=== PATIENT | male | born 1935 | race Caucasian/White ===

== ENCOUNTER 2017-05-18 04:56 | Inpatient (IN) | payer MEDICARE, OTHER ==
[~2017-05-18] VITALS: Ht 170.2 cm; Wt 82.4 kg
--- OUTSIDE RECORDS SUMMARY | ~2017-05-18 | XMS | Clinical Summary ---
Demographics + + + | Address | [address] | | | [place] [address] | + + + | Home Phone | | + + + | Preferred Language | Unknown | + + + | Marital Status | | + + + | Confucianist Affiliation | Unknown | + + + | Race | White | + + + | Ethnic Group | Not or | + + + Author + + + | Organization | Unknown | + + + | Address | Unknown | + + + | Phone | Unavailable | + + + Support + + + + + | Name | Relationship | Address | Phone | + + + + + | GENE NOE | ECON | [address] | | | | | [place] | | | | | [address] | | + + + + + Care Team Providers + +------+ + | Care Teacher Of Family And Consumer Science Name | Role | Phone | + +------+ + PP | Unavailable | + +------+ + Source Comments RODDY is fully live on both [facility] and [facility] InPatient.[facility] Allergies Not on File Current Medications Not on file Active Problems Not on file Social History + +-------+ +--------+------+ | Tobacco Use | Types | Packs/Day | Years | Date | | | | | Used | | + +-------+ +--------+------+ | Never Assessed | | | | | + +-------+ +--------+------+ + + + | Sex Assigned at | Date Recorded | | | | + + + | Not on file | | + + + Plan of Treatment + + + + + | Health Maintenance | Due Date | Last Done | Comments | + + + + + | INFLUENZA VACCINE | | | | | (FLU SHOT) | 7 | | | + + + + + Results Not on filefrom Last 3 Months"
--- OUTSIDE RECORDS SUMMARY | ~2017-05-18 | XMS | Clinical Summary ---
Demographics + + + | Address | [address] | | | [place] [address] | + + + | Home Phone [...] [place] | | | | | [phone] | | + + + + + Care Team Providers + +------+ + | Care Engraver Letter Name | Role | Phone | + +------+ + PP | Unavailable | + +------+ + Source Comments RODDY is fully live on both [facility] and [facility] InPatient.[facility] Allergies Not on File Current Medications Not [...]
--- OUTSIDE RECORDS SUMMARY | ~2017-05-18 | XMS | Clinical Summary ---
Demographics + + + | Address | [address] | | | [place] [address] | + + + | Home Phone | | + + + | Preferred Language | Unknown | + + + | Marital Status | | + + + | Yazidi Affiliation | Unknown | + + + [...] [place] | | | | | [phone] | | + + + + + Care Team Providers + +------+ + | Care Weed Controller Name | Role | Phone | + +------+ + PP | Unavailable | + +------+ + Source Comments RODDY is fully live on both [facility] and [facility] InPatient.[facility] Allergies Not on File [...]
--- OUTSIDE RECORDS SUMMARY | ~2017-05-18 | XMS | Clinical Summary ---
Demographics + + + | Address | [address] | | | [place] [address] | + + + | Home Phone | | + + + | Preferred Language | Unknown | + + + | Marital Status | | + + + | Muslim Affiliation | Unknown | + + + [...] [address] | | | | | [place] | | | | | [address] | | + + + + + Care Team Providers + +------+ + | Care Driver'S License Reviewing Officer Name | Role | Phone | + +------+ + PP | Unavailable | + +------+ + Source Comments RODDY is fully live on both [facility] and [facility] InPatient.[facility] Allergies Not on File Current Medications [...]
--- OUTSIDE RECORDS SUMMARY | ~2017-05-18 | XMS | Clinical Summary ---
Demographics + + + | Address | [address] | | | [place] [address] | + + + | Home Phone | | + + + | Preferred Language | Unknown | + + + | Marital Status | | + + + | Episcopalian Affiliation | Unknown | + + + [...] [place] | | | | | [phone] | | + + + + + Care Team Providers + +------+ + | Care Drawing Operator Name | Role | Phone | + +------+ + PP | Unavailable | + +------+ + Source Comments RODDY is fully live on both [facility] and [facility] InPatient.[facility] Allergies Not on File Current Medications Not [...]
[~2017-05-18 04:56] MED LIST: ALBUTEROL0.63 MG/3 IH; ALBUTEROL1.25 MG/3 INH; ALBUTEROL2.5 MG/3 M INH; ASPIRIN EC81 MG PO; BREO ELLIPTA 21 EACH IH; CALCIUM600 MG PO; COMBIVENT INH14.7 GM INH; DULERA 200 MCG/13 GM IH; FLOMAX0.4 MG PO; FLONASE2 SPRAY; FLOVENT DISKU100 MCG IH; FLOVENT DISKU100 MCG INH; FLUTICASONE PRO16 GM NAS; HYDROCODON-ACE1 EA11 PO; IBUPROFEN800 MG PO; LISINOPRIL10 MG PO; LISINOPRIL5 MG PO; LOSARTAN POTASS50 MG PO; METFORMIN HCL500 MG PO; MONTELUKAST SOD10 MG PO; NEURONTIN300 MG PO; NORCO 10-325 T1 EACH PO; NORCO 5-325 TA1 EACH PO; NORCO 7.5-3251 EACH PO; OXYCODONE HCL5 MG PO; PERCOCET 5-3251 EACH PO; PERCOCET 7.5-31 EACH PO; PREDNISONE20 MG PO; REQUIP2 MG PO; SIMVASTATIN20 MG PO; SINGULAIR10 MG PO; VENTOLIN HFA18 GM IH; XARELTO10 MG PO; ZYRTEC10 MG PO
[2017-05-18] MEDS ORDERED: MIRAPEX0.25 MG PO (05:07)
--- NOTE | 2017-05-18 08:41 | NUR ---
resting in bed with in the room, starting to have more abd pain. prn dilaudid given. also requesting something to help with throat discomfort. will ask DR Douglas when available.
--- NOTE | 2017-05-18 10:59 | NUR ---
I went into room to give patient his cepacol lozenges for sore throat and he was sleeping.
--- NOTE | 2017-05-18 12:33 | NUR ---
DR RODARTE IN TO SEE PATIENT.
--- NOTE | 2017-05-18 14:09 | HP ---
[facility] [address], [place] [address] Signed ADMISSION DATE: 05/18/2017 REASON FOR ADMISSION: Small bowel obstruction. HISTORY: This 81-year-old white man presents to the emergency room this morning and evaluated by Dr. Mora with complaints of diffuse cramping abdominal pain. His initial episode began approximately two nights ago, lasting about 3 hours, which resolved on its own. Notably, he had admission to the hospital in [place] at [facility] in March 2016, treated for small bowel obstruction, which resolved with conservative measures, not requiring operation. His pain returned last night after dinner and had progressed. It was much worse in the few hours preceding his evaluation in the emergency room. He has had bowel movement up to yesterday however. He had nausea and dry heaves, but no actual vomitus per se. A CT scan of the abdomen was performed, which showed dilated loops of bowel suggestive of small bowel obstruction and some loops that were decompressed and a possible transition point located in the anterior midline related to prior incision. Of note, in 1987, he underwent a hiatal hernia repair. He has had other hernia repairs as well he says. His other medical problems include hypertension and reactive airways as well as dyslipidemia. MEDICATIONS AT ADMISSION: Include losartan, gabapentin, fluticasone inhaler, pramipexole (Mirapex, metformin, albuterol inhaler, simvastatin, and montelukast sodium). ALLERGIES: He has allergies to sulfa medications and oxycodone. He also has "metal allergy" including itching and red bumps he says. PAST SURGICAL HISTORY: Does include hiatal hernia repair and other abdominal wall hernia repairs as well as fiberoptic endoscopic sinus surgery, prostatic laser surgery, tonsillectomy as well. SOCIAL HISTORY: He lives in [place], [place]. He is . His primary physician is Dr. Gallego. REVIEW OF SYSTEMS: He denies any chest pain or shortness of breath per se. He has had no wheezing. He Electronically Signed By: MATI RODARTE MD 05/18/17 1409 PATIENT NAME: AMY NOE HISTORY AND PHYSICAL DATE OF : 37 REPORT #: [id number] PHYSICIAN: MATI RODARTE MD PCP: JULIETTE GALLEGO MD REPORT IS CONFIDENTIAL AND NOT TO BE RELEASED WITHOUT AUTHORIZATION [facility] [address], [place] [address] Signed denies any hematemesis or blood per rectum. He has had no voiding since being on the mcneil and feels somewhat thirsty. PHYSICAL EXAMINATION: GENERAL: Pleasant white man who does not look systemically toxic. Nasogastric tube is draining a scant amount of greenish fluid. Trachea is midline. He has no hoarseness. CHEST: Clear. There is no wheeze or rhonchi. HEART: Regular without murmur. ABDOMEN: Somewhat distended, but not particularly tender. It is firm. It is not soft. There is no mass. EXTREMITIES: Show no clubbing, cyanosis, or edema. LABORATORY STUDIES: Show a white count of 13.6, hematocrit 48.5, and platelets 259,000. Chem profile is normal. Glucose is elevated to 12, calcium 10.3, and lipase 34. Urinalysis, specific gravity of 1.056. I have reviewed the CT scan and some of his other notes available from prior admissions to the hospital. ASSESSMENT: The patient appears to have clinical and radiographic evidence of small bowel obstruction. This is a recurrent obstruction. A similar such episode was noted a year ago and managed in [place] at [facility] by conservative means. There does appear to be a transition point and he may require operation and may be as simple as an adhesion that might be divided. He is not particularly tender though his white count was somewhat elevated. He is improved with a nasogastric tube. He does need additional fluids. We will be watching closely and monitoring his blood glucose as he does have hyperglycemia at the time of admission. He may benefit from operation sooner than later if he does not have probable resolution of his symptoms. We have discussed all this and he concurs. MD DANELLE Damian/KARMENL /[id number] Electronically Signed By: MATI RODARTE MD 05/18/17 1409 PATIENT NAME: AMY NOE HISTORY AND PHYSICAL DATE OF : 37 REPORT #: [id number] PHYSICIAN: MATI RODARTE MD PCP: JULIETTE GALLEGO MD REPORT IS CONFIDENTIAL AND NOT TO BE RELEASED WITHOUT AUTHORIZATION [facility] [address] [place] [id number] Signed cc: Dr. Julián Mora MD Copies: GUY MORA MD ~ Electronically Signed By: MATI RODARTE MD 05/18/17 1409 PATIENT NAME: AMY NOE HISTORY AND PHYSICAL DATE OF : 37 REPORT #: [id number] PHYSICIAN: MATI RODARTE MD PCP: JULIETTE GALLEGO MD REPORT IS CONFIDENTIAL AND NOT TO BE RELEASED WITHOUT AUTHORIZATION
--- NOTE | 2017-05-18 15:15 | NUR ---
Up to the bathroom with 1 person standby assist. Walked around the large loop around nurses stations x2 loops. back to bed, state no pain right now.
--- NOTE | 2017-05-18 18:34 | NUR ---
UP WALKING IN THE HALLWAY WITH FAMILY MEMBER. TOLERATING WELL. BACK TO CHAIR, USED URINAL. NG TUBE RECONNECTED TO LIWS. IV FLUIDS RECONNECTED.
--- NOTE | 2017-05-18 19:15 | NUR ---
SHIFT REPORT RECEIVED. PATIENT IN THE RECLINER. NG TUBE IS CONNECTED TO SUCTION. PATIENT REQUESTING PRN PAIN MEDS AND A LOZENGE. FELECIA RN PROVIDED THESE TO PATIENT AND ASSISTED HIM INTO BED.
--- NOTE | 2017-05-18 19:41 | NUR ---
THE PATIENT VERBILIZED CONCERN ABOUT NOT RECEIVING HIS REGULAR DOSE OF GABAPENTIN AND MIRAPEX. HE IS CONCERNED HE WILL NOT BE ABLE TO SLEEP WITHOUT THESE MEDICATIONS. SPOKE WITH . ORDERS TO PROVIDE PATIENT'S HOME DOSE OF THESE MEDICATIONS WERE RECIEVED AND ORDERS TO PAUSE THE SUCTION ON THE NG TUBE FOR 30MINS FOR PO MED ADMINISTRATION.
--- NOTE | 2017-05-18 20:15 | NUR ---
EVENING MEDS GIVEN PER ORDER. PATIENT REPORTS GOOD PAIN CONTROL. SUCTION PAUSED FOR PO COAT EXAMINER. PATIENT'S ABD IS MODERATELY DISTENDED, NONTENDER, BOWEL SOUNDS ACTIVE THROUGHOUT. PATIENT HAS NOT BEEN PASSING GAS. TRACE EDEMA NOTED IN PATIENT'S HANDS, CRACKLES HEARD IN BASES OF THE LUNGS UP TO THE MIDDLE LOBES. UPPER LOBES ARE CLEAR. PATIENT DENIES SOB, O2 SAT 100% ON RA. DR. RODARTE NOTIFIED. ORDERS FOR CHEST X-RAY RECEIVED. IMAGING CONTACTED. PATIENT IS RESTING IN BED. VS, WNL. NO NEEDS AT THIS TIME. DISCUSSED PLAN OF CARE, NO QUESTIONS AT THIS TIME.
--- NOTE | 2017-05-18 20:34 | NUR ---
ROUNDED CHARGE. PATIENT IS RESTING IN BED. PATIENT HAS NG IN PLACE ON LWIS. NO NEEDS NOTED. CALL LIGHT IN REACH.
--- NOTE | 2017-05-18 21:00 | NUR ---
IMAGING IN ROOM FOR CHEST X-RAY. RESULTS SENT TO BY SCUTCHER TENDER PER REQUEST BY .
--- NOTE | 2017-05-18 21:28 | NUR ---
EVENING MEDS GIVEN PER ORDER. PATIENT REPORTS GOOD PAIN CONTROL. 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 PATIENT'S ABD IS MODERATELY DISTENDED, NONTENDER, BOWEL SOUNDS ACTIVE THROUGHOUT. PATIENT HAS NOT BEEN PASSING GAS. TRACE EDEMA NOTED IN PATIENT'S HANDS, CRACKLES HEARD IN BASES OF THE LUNGS UP TO THE MIDDLE LOBES. UPPER LOBES ARE CLEAR. PATIENT DENIES SOB, O2 SAT 100% ON RA. DR. RODARTE NOTIFIED. ORDERS FOR CHEST X-RAY RECEIVED. IMAGING CONTACTED. PATIENT IS RESTING IN BED. VS, WNL. NO NEEDS AT THIS TIME. DISCUSSED PLAN OF CARE, NO QUESTIONS AT THIS TIME.
--- NOTE | 2017-05-18 21:30 | NUR ---
SPOKE WITH ABOUT CHEST X-RAY FINDINGS. HE REPORTS THESE NORMAL. REQUEST PATIENT BE GIVEN NEB TREATMENT. RT CALLED.
--- NOTE | 2017-05-18 21:30 | NUR ---
PATIENT REPORTS GOOD PAIN CONTROL AT THIS TIME. HE IS SITTING UP IN THE BED, WATCHING TV. NG HOOKED UP TO LIWS. IV FLUIDS ARE RUNNING AT 85MLS/HR PER ORDER. PATIENT REPORTS SORENESS IN HIS THROAT. RN REMINDS HIM OF THE LOZENGE AT HIS BEDSIDE. HE STATES "I KNOW, I'LL USE IT SOON.". FRESH ICE CHIPS PROVIDED.
--- NOTE | 2017-05-18 22:15 | NUR ---
RT PROVIDED NEB TREATMENT. CRACKLES ARE STILL PRESENT, LOUDER THAN PRIOR TO TREATMENT. ENCOURAGED PATIENT TO COUGH AND DEEP BREATHE. HE AGREES TO DO THIS WHILE AWAKE. HE REPORTS GOOD PAIN CONTROL AT THIS TIME. DISCUSSED MY CONVERSATION WITH WITH THE PATIENT AND DISCUSSED THE IMPORTANCE OF GOOD RESPIRTORY HYGIENE, PATIENT VERBILIZED UNDERSTANDING.
--- NOTE | 2017-05-18 23:00 | NUR ---
PATIENT IS RESTING IN BED. HOB ELEVATED. NG TO LIWS. OUTPUT MINIMAL. IN FLUIDS INFUSING PER ORDER, SITE WNL.
--- NOTE | 2017-05-19 02:00 | NUR ---
BLOOD GLUCOSE CHECK DONE, NO INSULIN REQUIRED. PATIENT REPORTS GOOD PAIN CONTROL. ENCOURAGED PATIENT UP TO THE BATHROOM. PATIENT IS AWAKE AND ALERT. NO ASSISTANCE REQUIRED TO STAND UP TO THE EDGE OF THE BED TO USE URNAL. OUTPUT IS QS. IV FLUIDS INFUSING PER ORDER, SITE WNL. FRESH ICE PROVIDED. PATIENT'S LUNGS CONTINUE TO HAVE CRACKLES IN THE BASES, ENCOURAGED COUGH AND DEEP BREATHE. ABD IS MODERATELY DISTENDED, FIRM, AND NONTENDER. NG TUBE CONNECTED TO LIWS, MINIMAL OUTPUT. PATIENT RESTING IN BED WATCHING TV NOW, REQUEST LIGHTS TO BE LEFT ON. CALL LIGHT IN REACH.
--- NOTE | 2017-05-19 05:55 | NUR ---
PATIENT SLEPT MOST OF THE NIGHT. PAIN WELL CONTROLLED, NO MORPHINE REQUIRED SINCE START OF SHIFT. ABD IS MODERATELY DISTENDED, FIRM, BOWEL SOUNDS ACTIVE. PATIENT IS AAOX4, CALLS APPROPRIATELY. STANDS TO SIDE OF BED TO USE URNAL. OUTPUT QS. IV FLUIDS INFUSING PER ORDER, SITE WNL. TRACE EDEMA NOTED IN HANDS AND ANKLES. CRACKLES IN BASES OF LUNGS. SCDS IN USE. NG TUBE TO LIWS.
--- NOTE | 2017-05-19 06:26 | NUR ---
VS COMPLETE. PATIENT UP TO USE BATHROOM AND THEN MOVED TO RECLINER. HE DENIES PAIN. NG TUBE FLUSHED TO ENSURE PATENCY. PATIENT CONTINUES TO HAVE CRACKLES IN THE BASES OF HIS LUNGS. DENIES SOB. TRACE EDEMA ON HIS HANDS AND ANKLES. FRESH ICE CHIPS PROVIDED. NO OTHER NEEDS AT THIS TIME.
--- NOTE | 2017-05-19 07:34 | NUR ---
BEDSIDE REPORT RECEIVED FROM JORGE. PATIENT AWAKE SITTING IN THE CHAIR. NG TUBE IN PLAE ON L/I/S. IV INFUSING WELL, NO SIGNS OF INFILTRATION. PATIENT HAS ICE CHIP FOR COMFORT. REPORTS MILD PAIN ON THE RUQ. ABD XRAY DONE THIS AM. PATIENT DENIES NAUSEA. CALL LIGHT IN REACH.
--- NOTE | 2017-05-19 08:10 | NUR ---
PATIENT RESTING IN THE CHAIR, REPORTS MILD RIGHT QUADRANT PAIN. STATED THAT HE DOES NEED MED AT THIS TIME. LUNGS CLEAR AND DIM IN THE BASES. TRACE EDEMA NOTED IN THE HANDS AND MIKE LOWER EXTREMITIES. NG TUBE IN PLACE. TUBE WAS CLAMP FOR PO MEDS. PATIENT REPORT DISCOMFORT IN THE THROAT DUE TO NG TUBE, LOZENGES PRN. IV SITE PATENT AND FLUID INFUSING WELL. ABD FIRM AND ACTIVE BOWEL TONES EXCEPT LEFT LOWER QUADRANT. PATIENT DENIES NAUSEA. PATIENT IS A&O. INDEPENDENT IN ROOM. EDUCATED PATIENT ABOUT CALL LIGHT WHEN NEED HELP. CALL LIGHT IN REACH.
--- NOTE | 2017-05-19 10:52 | NUR ---
DR RODARTE WAS IN ROOM TO EVALUATE PATIENT AND DISCUSSED PLAN OF CARE. ALL QUESTIONS ANSWERED.
--- NOTE | 2017-05-19 12:35 | NUR ---
DR RODARTE CALLED AND GAVE ORDER TO DC NG TUBE AND ADVANCED DIET TO CLEAR LIQUID. PATIENT WAS NOTIFIED AND NG TUBE WAS DC. CLEAR LIQUID TRAY ORDER. PATIENT DENIES NAUSEA. RESTING IN CHAIR AT THIS TIME. CALL LIGHT IN REACH.
--- NOTE | 2017-05-19 14:57 | NUR ---
PT IS RELAXING IN THE CHAIR. PT STATES HE HAS NO NEEDS AT THIS TIME. VS AND I&O'S TAKEN AND DOCUMENTED. INFORMED PT TO CALL IF HE NEEDS ANYTHING. CALL LIGHT IS IN REACH.
--- NOTE | 2017-05-19 15:02 | NUR ---
PATIENT SITTING IN THE CHAIR AT THIS TIME. DENIES ANY NAUSEA AFTER DRINKING COFFEE. NO APPARENT DISTRESS. WILL CONTINUE TO MONITOR.
--- NOTE | 2017-05-19 16:17 | NUR ---
PATIENT UP WALKING IN THE HALLWAY. DENIES PAIN AND NAUSEA AT THIS TIME. TOLERATED CLEAR LIQUID DIET WELL. REPORTS PASSING LOTS OF FLATUS. WILL CONTINUE TO MONITOR.
--- NOTE | 2017-05-19 17:31 | NUR ---
PATIENT TOLERATED CLEAR LIQUID VERY WELL. NO REPORT OF NAUSEA OR OTHER DISCOMFORT. PATIENT REPORTS PASSING LOTS OF FLATUS. WILL ADVANCE PATIENT DIET TO FULL LIQUID AL MD ORDER. WILL CONTINUE TO MONITOR. FULL LIQUID TRAY ORDER.
--- NOTE | 2017-05-19 17:34 | NUR ---
Medications reconciled with patient interview. Patient will use his own Breo Ellipta inhaler. Please assure that it is returned to him at discharge
--- NOTE | 2017-05-19 18:39 | NUR ---
PATIENT HAD DONE WELL TODAY. NG TUBE DC'd AT ABOUT 1230. PATIENT TOLERATED CLEAR LIQUID WELL AND WAS ADVANCED TO FULL LIQUID PER DR RODARTE ORDER. NO NAUSEA. PATIENT REPORTED PASSING LOTS OF FLATUS. ACTIVE BOWEL TONES. AMBULATED IN THE HALLWAY MULTIPLE TIME. NO BM. CBG CHECK, INSULIN IS CBG GREATER THAN 150 PER MD ORDER.
--- NOTE | 2017-05-19 19:00 | NUR ---
SHIFT REPORT RECEIVED. PATIENT IN RECLINER. DENIES NAUSEA OR PAIN. REPORTS THAT HE WILL BE GETTING UP TO GO FOR A WALK. DENIES ANY NEEDS AT THIS TIME.
--- NOTE | 2017-05-19 19:15 | NUR ---
ROUNDED CHARGE. PATIENT IS UP AMBULATING IN HALLWAY. PATIENT DENIES ANY NEEDS AT THIS TIME. CALL LIGHT IN REACH.
--- NOTE | 2017-05-19 19:34 | NUR ---
PATIENT UP AMBULATING IN HALLWAY INDEPENDENTLY. APPEARS STEADY ON HIS FEET. DENIES PAIN.
--- NOTE | 2017-05-19 20:05 | NUR ---
RT CAROLA AND MYSELF ARE CONCERNED ABOUT PATIENT'S LUNG SOUNDS. CRACKLES HEARD IN THE BASES. PATIENT DENIES SOB. HE HAS BEEN TOLERATING ORAL FLUIDS AND URINE OUTPUT IS QS. NO NAUSEA AND NO ABD PAIN. CALLED TO GIVE HIM AN UPDATE ON THE PATIENT'S CONDITION. NEW ORDERS RECEIVED TO SL PATIENT AND PROVIDE A NORMAL BREAKFAST LONG PATIENT CONTINUES TO DO WELL. VERIFIED USING READBACK METHOD.
--- NOTE | 2017-05-19 21:10 | NUR ---
EVENING MEDS GIVEN PER ORDER. PATIENT BLOOD GLUCOSE WNL, NO INSULIN GIVEN. PATIENT IS AAOX3. UP IN THE RECLINER WATCHING TV. DENIES PAIN AND NAUSEA. PATIENT IS SL NOW. IV SITE WNL. LUNG SOUNDS ARE CLEAR IN UPPER LOBES, WITH CRACKLES IN THE BASES. HE DENIES SOB. ABD IS MILDLY DISTENDED, SLIGHTLY FIRM, NONTENDER. HYPOACTIVE BOWEL SOUNDS IN THE LOWER QUADRANTS, ACTIVE IN UPPER. URINE OUTPUT IS QS. TOLERATING ADEQUATE PO FLUIDS. TRACE EDEMA NOTED IN HANDS. PATIENT STATES HE WILL BE GOING FOR ANOTHER WALK SOON LONG IT DOESN'T BOTHER ANYONE. RN ENCOURAGED HIM TO WALK AND REASSURED HIM THAT HE WOULD NOT BE BOTHERING ANYONE.
--- NOTE | 2017-05-20 00:30 | NUR ---
PATIENT IS RESTING IN BED. TV IS ON BUT HE APPEARS TO BE SLEEPING. LIGHTS ARE OFF. RR 18. CALL LIGHT IN REACH.
--- NOTE | 2017-05-20 01:30 | NUR ---
PATIENT APPEARS TO BE SLEEPING SOUNDLY. RR 18. URNAL EMPTIED. OUTPUT QS, LIGHT YELLOW IN COLOR.
--- NOTE | 2017-05-20 03:13 | NUR ---
PATIENT RESTING IN BED. HE DENIES ANY NEEDS. REPORTS GOOD PAIN CONTROL. URNAL EMPTIED.
--- NOTE | 2017-05-20 05:31 | NUR ---
PATIENT UP AMBULATING. HE REQUEST COFFEE AND SOME FRESH ICE WATER WHICH WAS PROVIDED TO HIM. HE DENIES PAIN OR NAUSEA. BREAKFAST ORDER TAKEN.
--- NOTE | 2017-05-20 05:32 | NUR ---
PATIENT RESTED WELL THROUGHOUT THE NIGHT. PAIN WELL CONTROLLED WITHOUT MEDS. PATIENT HAS BEEN TAKING IN ADEQUATE PO FLUIDS. ABD IS MILDLY DISTENDED, NONTENDER, AND ACTIVE BOWEL SOUNDS. TRACE EDEMA STILL NOTED IN HANDS AND SOME CRACKLES IN THE BASES OF HIS LUNGS. VS HAVE BEEN WNL. URINE OUTPUT QS. HE HAS BEEN AMBULATING FREQUENTLY IN THE HALLS INDEPENDENTLY. IV SL.
--- NOTE | 2017-05-20 07:36 | NUR ---
received report from shift boss rn. breakfast is ordered. reports no pain. no n/v. independent in room. sl in RAC. call light within reach. request to keep door shut. no other needs at this time.
--- NOTE | 2017-05-20 09:10 | NUR ---
MORNING ASSESSEMNT COMPLETED. PT UP IN CHAIR, LUNGS ARE CLEAR AND DIM THROUGHOUT. GENERAL EDEMA NOTED IN BILAT HANDS AND LE. PT BLOOD SUGAR WAS 126 THIS AM. NO INSULINE GIVEN. PT IS A/O X4. REPORTS NO N/V AT THIS TIME. NO BOWEL MOEVENT IN 3 DAYS. BOWEL TONES ARE ACTIVE IN ALL FOUR QUADRANTS. FINISHED 100% OF BREAKFAST. PT OOB TO WALK HALLS INDEPENDENTLY. TOLLERATED WELL. BACK TO ROOM. CALL LIGHT WITHIN REACH.
--- NOTE | 2017-05-20 11:45 | NUR ---
PT WATCHING TV IN ROOM. AT BEDSIDE. UP TO CHAIR FOR LUNCH. BLOOD SUGAR 99. NO COVERAGE NEEDED. REFRESHED ICE WATER. KEEPING DOOR SHUT PER PT REQUEST. REPORTS NO PAIN AT THIS TIME. STATES "I JUST WANNA GO TO THE BATHROOM" (MEANING BOWEL MOVEMENT). CALL LIGHT WITHIN REACH. NO OTHER NEEDS AT THIS TIME.
--- NOTE | 2017-05-21 08:36 | DS ---
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 His initial pain started 2 days prior to admission, lasting about 3 hours, then resolved on its own. It is notably he was admitted to the hospital in [place] at [facility] in March 2016, treated for small bowel obstruction by conservative measures, which resolved without operation. The patient has had prior open hiatal hernia repair in 1987 as well as other hernia repairs. He is admitted for further evaluation and care for small bowel obstruction after CT scan was performed showing dilated loops of bowel suggestive of small bowel obstruction. PERTINENT PHYSICAL EXAMINATION: GENERAL: Showed a pleasant white man, who did not look systemically toxic. HEENT: Nasogastric tube was draining scant amount of greenish fluid. Trachea is midline. He has no hoarseness. CHEST: Clear. HEART: Regular without murmur. ABDOMEN: Somewhat distended, but not tender, but it was firm. There is no mass. LABORATORY DATA: White count was elevated at 13.6, hematocrit 48.5, and platelets 259,000. Chem profile was normal. Glucose elevated to 120, calcium 10.3, and lipase 34. CT scan showed dilated loop of bowel with transition area beneath the midline incision. HOSPITAL COURSE: He is maintained with nasogastric tube decompression and did feel quite a bit better after fluid resuscitation. He began having flatus rather promptly, but no actual bowel movement. Review of his meals leading up to his obstruction did not suggest any episode of high-fiber food bingeing or anything of that sort. A followup abdominal x-ray showed no clear evidence of bowel obstruction at that point. Nasogastric tube was removed and he was begun on a clear liquid diet and advanced to a full and ultimately a solid regular diet. By the afternoon the day of admission, he is tolerating a regular diet, has fair amount of flatus, no abdominal distention, no pain and doing well. Electronically Signed By: MATI RODARTE MD 05/21/17 0836 PATIENT NAME: AMY NOE DISCHARGE SUMMARY DATE OF : 37 REPORT #: [id number] PHYSICIAN: MATI RODARTE MD PCP: JULIETTE GALLEGO MD REPORT IS CONFIDENTIAL AND NOT TO BE RELEASED WITHOUT AUTHORIZATION [facility] [address], [place] [address] Signed As the patient has had 2 episodes of bowel obstruction, both resolving spontaneously without surgical intervention. We both agree that if recurrent obstruction should occur in the near future, then operative intervention would be undertaken rather than any prolonged delay for waiting for spontaneous resolution. He will return to the ongoing care of his primary physician, Dr. Gallego otherwise. If he has any problems, I am happy to see him sooner. DISCHARGE MEDICATIONS: His discharge medications will be as he had at time of admission which includes: 1. Metformin 500 mg p.o. b.i.d. 2. Gabapentin 600 mg p.o. b.i.d. 3. Losartan 50 mg p.o. at bedtime. 4. Albuterol (Ventolin) inhaler 2 puffs q.4 hours as needed for shortness of breath. 5. Fluticasone propionate 2 sprays nasal daily for nasal congestion. 6. Simvastatin 20 mg p.o. daily. 7. Montelukast 10 mg p.o. at bedtime daily. 8. Mirapex 0.25 mg 2 tablets p.o. at bedtime for restless legs. DISCHARGE DIAGNOSES: 1. Recurrent small bowel obstruction (last episode March 2016) with spontaneous resolution. 2. History of hiatal hernia repair by open technique 1987. 3. Reactive airways disease. 4. Hypertension. MD DANELLE Damian/MODL /[id number] cc: MD Juliette Verdugo MD Electronically Signed By: MATI RODARTE MD 05/21/17 0836 PATIENT NAME: AMY NOE DISCHARGE SUMMARY DATE OF : 36 REPORT #: [id number] PHYSICIAN: MATI RODARTE MD PCP: JULIETTE GALLEGO MD REPORT IS CONFIDENTIAL AND NOT TO BE RELEASED WITHOUT AUTHORIZATION [address] [place] [address] Signed Copies: GUY MORA MD, RUSSELL BARR MD ~ Electronically Signed By: MATI RODARTE MD 05/21/17 0836 PATIENT NAME: AMY NOE DISCHARGE SUMMARY DATE OF : 37 REPORT #: [id number] PHYSICIAN: MATI RODARTE MD PCP: JULIETTE GALLEGO MD REPORT IS CONFIDENTIAL AND NOT TO BE RELEASED WITHOUT AUTHORIZATION
== END 2017-05-20 15:20 | disposition home or self-care (01) | DRG 390 ==
LOC: ED 04:56 → MS 04:58 → ED 04:58 → MS 04:58 → ED 07:23 → MS 12:40
PROVIDERS: ADMIT Surgery
PROC: 0D9670Z Drainage of Stomach with Drainage Device, Via Natural or Artificial Opening (ICD-10-PCS; principal; 2017-05-18)
DX: K56.699 Other intestinal obstruction unspecified as to partial versus complete obstruction (principal); E11.9 Type 2 diabetes mellitus without complications; J44.9 Chronic obstructive pulmonary disease, unspecified; I10 Essential (primary) hypertension; E78.5 Hyperlipidemia, unspecified; Z87.891 Personal history of nicotine dependence; Z79.84 Long term (current) use of oral hypoglycemic drugs; Z79.51 Long term (current) use of inhaled steroids; Z79.899 Other long term (current) drug therapy; Z88.5 Allergy status to narcotic agent; Z88.2 Allergy status to sulfonamides
CPT/HCPCS: 36415; 71045; 74018; 74177; 80053; 81001; 83690; 85025; 94640; J1170; J1644; J2270; J2405; J2550; J7120; Q9967

== ENCOUNTER 2017-11-20 02:56 | Inpatient (IN) | payer MEDICARE, OTHER ==
[~2017-11-20] VITALS: Ht 170.2 cm; Wt 76.2 kg
--- NOTE | ~2017-11-20 | HP ---
[facility] [address] [place], [place] [address] Draft ADMISSION DATE: 11/20/2017 REASON FOR ADMISSION: Recurrent small bowel obstruction. HISTORY OF PRESENT ILLNESS: This 82-year-old white man is known to me from the past. He was admitted in April of 2017, for small bowel obstruction, which was considered a recurrent bowel obstruction. He had previously been admitted to [facility] for small bowel obstruction and admitted by sc for small bowel obstruction, which was similarly managed conservatively with resolution spontaneously. This was on May 20, 2017. Given his recurrent obstructive episodes, we had decided that an additional episode of obstruction might well be managed operatively. Late last night, he began having bloating, abdominal pain, nausea and vomiting, and presented to the emergency room, was evaluated by Dr. Doe. Imaging studies including a chest x-ray and a CT scan of the abdomen showed quite obvious bowel obstruction. Interpretation by the radiologist in addition to my personal review of the films showed an area of segmental ileal wall thickening in the right lower abdomen at the point of obstruction with question of possible inflammatory bowel disease. There is no other abnormality particularly. PAST MEDICAL HISTORY: Remarkable for hiatal hernia repair in 1987 in [place], [place]. Additionally, he has undergone incisional hernia repair in December of 2012. He has had knee replacement in 2014 also. Since his admission, the nasogastric tube has been placed, which has drained a considerable amount of opaque greenish yellow fluid. This has improved his symptoms of upper abdominal pain quite markedly. Past medical history includes reactive airways disease, also has hypertension. CURRENT MEDICATIONS: Include albuterol nebulizer, aspirin, diclofenac, fluticasone spray, gabapentin (Neurontin), losartan, metformin, montelukast, pramipexole, and simvastatin. ALLERGIES: He has allergies to sulfa medication and oxycodone. PATIENT NAME: AMY NOE HISTORY AND PHYSICAL DATE OF : 37 REPORT #: [id number] PHYSICIAN: MATI RODARTE MD PCP: JULIETTE GALLEGOS MD REPORT IS CONFIDENTIAL AND NOT TO BE RELEASED WITHOUT AUTHORIZATION [facility] [address], [place] [address] Draft SOCIAL HISTORY: He is . His is not present right now. She is babysitting some grandchildren. REVIEW OF SYSTEMS: He denies any shortness of breath or chest pain. He is having no dysphagia. He has had no blood per rectum or hematemesis. PHYSICAL EXAMINATION: GENERAL: Only mildly obese white man is sitting up in the chair, resting comfortably. HEENT: Nasogastric tube was in place with opaque yellow green fluid from nasogastric tube. Trachea is midline. Mucous membranes are quite dry. CHEST: Clear. HEART: Regular. ABDOMEN: Mildly distended, but not focally tender. EXTREMITIES: Show no clubbing, cyanosis, or edema. LABORATORY STUDIES: At admission showed a white count of 10.6, hematocrit 44.6, platelets 220,000. Chem profile was normal. Glucose is 176. Lipase 25. Urinalysis was normal. ASSESSMENT: The patient is now with recurrent small-bowel obstruction. Imaging studies suggest the obstructions in the region of the terminal ileum. Certainly, he may have inflammatory bowel disease accounting for obstructive process, but it is uncommon at this advanced age of 82, though not impossible by any means. The possibility of a stricture related adhesion causing obstruction is considered as well. At the present, he needs fluid resuscitation and further consideration for operative management of his problem. MD DANELLE Damian/SHAWN /[id number] cc: Gerson Doe DO PATIENT NAME: AMY NOE HISTORY AND PHYSICAL DATE OF : 37 REPORT #: [id number] PHYSICIAN: MATI RODARTE MD PCP: JULIETTE GALLEGOS MD REPORT IS CONFIDENTIAL AND NOT TO BE RELEASED WITHOUT AUTHORIZATION [facility] [address] [place] [address] Draft Copies: GERSON DOE DO ~ PATIENT NAME: AMY NOE HISTORY AND PHYSICAL DATE OF : 37 REPORT #: [id number] PHYSICIAN: MATI RODARTE MD PCP: JULIETTE GALLEGOS MD REPORT IS CONFIDENTIAL AND NOT TO BE RELEASED WITHOUT AUTHORIZATION
--- NOTE | ~2017-11-20 | DS ---
[facility] [address], [place] [address] Draft ADMISSION DATE: 11/20/2017 DISCHARGE DATE: 11/22/2017 REASON FOR ADMISSION: This 82-year-old white man is known to me from the past having been admitted in april of 2017, for small bowel obstruction, which is considered a recurrent obstruction. He had previously been admitted to [facility] for same thing in both cases, managed conservatively with spontaneous resolution. The night prior to admission he began having bloating, abdominal pain, nausea and vomiting, presented to the emergency room where he was evaluated by Dr. Reina. IMAGING: Imaging studies include a chest x-ray and CT scan of the abdomen, which showed an obvious distal small bowel obstruction. It was considered to have wall thickening in the ileum, but the transition point well proximal to the terminal ileum. He has undergone abdominal surgery in the past including hiatal hernia repair in 1987 in [facility], as well as an incisional hernia repair in December of 2012. He is admitted for further evaluation and care. PERTINENT PHYSICAL EXAMINATION: GENERAL: Showed a mildly obese white man, sitting up in a chair with a nasogastric tube in place draining copious amounts of thick yellow green fluid. Trachea is midline. Membranes quite dry. CHEST: Clear. HEART: Regular. ABDOMEN: Mildly distended, but not focally tender. EXTREMITIES: No clubbing, cyanosis, or edema. LABORATORY DATA: White count was 10.6, lipase 25, hematocrit 44.6, platelets 220,000. Glucose 176. HOSPITAL COURSE: He was maintained with IV fluids nasogastric tube decompression and had prompt improvement. Given his improvement clinically and given his recurrent obstructive problem, a small-bowel follow-through was obtained through his nasogastric tube, which showed prompt emptying of contrast throughout the small bowel into the colon. There was no sign of stricture, neoplasm, or other issue. The nasogastric tube was removed and he was begun on a diet, which he tolerated well. By the time of discharge, he is ambulating well, tolerating a regular diet and having no sign of obstructive symptoms. PATIENT NAME: AMY NOE DISCHARGE SUMMARY DATE OF : 37 REPORT #: [id number] PHYSICIAN: MATI RODARTE MD PCP: JULIETTE GALLEGO MD REPORT IS CONFIDENTIAL AND NOT TO BE RELEASED WITHOUT AUTHORIZATION [facility] [address], [place] [address] Draft At this point, he will be discharged home without specific restriction. If he should have further problems, he will let me know. We will see him back in about 6 weeks. Consideration might be made for a small-bowel follow-through to assess if he is having possibly a recurrent intussusception type problem though admittedly the CT scan does not show such a finding. DISCHARGE MEDICATIONS: Will include his usual dose which is, 1. Metformin 500 mg p.o. b.i.d. 2. Gabapentin 300 mg two caps p.o. b.i.d. 3. Losartan 50 mg p.o. at bedtime. 4. Albuterol 2 puffs q.4 hours as needed for shortness of breath. 5. Fluticasone propionate two sprays daily as needed for congestion. 6. Simvastatin 20 mg p.o. at bedtime. 7. Montelukast 10 mg p.o. at bedtime. 8. Mirapex 0.25 mg tablets two tabs p.o. at bedtime. 9. Aspirin 81 mg p.o. daily. 10. Voltaren 100 mg gel topically as needed for pain. 11. Calcium phosphate and vitamin D3 Gummies, one each daily. 12. Zyrtec 10 mg p.o. daily. 13. DSS 100 mg p.o. daily. DISCHARGE DIAGNOSES: 1. Recurrent small bowel obstruction with spontaneous resolution with conservative measures. 2. History of restless legs syndrome. 3. Reactive airways. 4. Diabetes, noninsulin dependent. 5. Hypertension. MD DANELLE Damian/SHAWN /[id number] cc: Juliette Gallego MD PATIENT NAME: AMY NOE DISCHARGE SUMMARY DATE OF : 36 REPORT #: [id number] PHYSICIAN: MATI RODARTE MD PCP: JULIETTE GALLEGO MD REPORT IS CONFIDENTIAL AND NOT TO BE RELEASED WITHOUT AUTHORIZATION [facility] [address] [place], [place] [address] Reina. Copies: JULIETTE GALLEGO MD ~ PATIENT NAME: AMY NOE DISCHARGE SUMMARY DATE OF : 37 REPORT #: [id number] PHYSICIAN: MATI RODARTE MD PCP: JULIETTE GALLEGO MD REPORT IS CONFIDENTIAL AND NOT TO BE RELEASED WITHOUT AUTHORIZATION
--- OUTSIDE RECORDS SUMMARY | ~2017-11-20 | XMS | Encounter Summary ---
Demographics + + + | Address | [address] | | | [place] [address] | + + + | Home Phone | | + + + | Preferred Language | Unknown | + + + | Marital Status | | + + + | Voodoo Affiliation | Unknown | + + + | Race | Unknown | + + + | Ethnic Group | Unknown | + + + Author + + + | Author | [facility] | + + + | Organization | [facility] | + + + | Address | Unknown | + + + | Phone | Unavailable | + + + Support + + + + + | Name | Relationship | Address | Phone | + + + + + | Hannah Alvarez | ECON | [address] | | | | | [place] | | | | | [address] | | + + + + + Care Team Providers + +------+ + | Care Elocution Teacher Name | Role | Phone | + +------+ + | Eugenio Gallego MD | PCP | | + +------+ + Reason for Referral MRI/CAT Scan (Routine) +--------+--------+ + + + + | Status | Reason | Specialty | Diagnoses / | Referred By | Referred To | | | | | Procedures | Contact | Contact | +--------+--------+ + + + + | Closed | | Radiology | Diagnoses | [place], | [facility] [address] | | | | | Multiple | Karon | [address] | | | | | pulmonary | [address] | | | | | nodules | [address] | [place] | | | | | Procedures | [place] | [address] Phone: | | | | | CT chest | [place], | [phone] | | | | | without | [place] [address] | | | | | | contrast | Phone: | | | | | | | [phone] | | | | | | | Fax: | | | | | | | [phone] | | +--------+--------+ + + + + MRI/CAT Scan (Routine) +--------+--------+ + + + + | Status | Reason | Specialty | Diagnoses / | Referred By | Referred To | | | | | Procedures | Contact | Contact | +--------+--------+ + + + + | Closed | | Radiology | Diagnoses | [place], | [facility] [address] | | | | | Multiple | Karon | [address] | | | | | pulmonary | [address] | | | | | nodules | [address] | [place], [place] | | | | | Procedures | [address] | [address] Phone: | | | | | CT chest | [place], | | | | | without | [place] [address] | | | | | | contrast | Phone: | | | | | | | [phone] | | | | | | | Fax: | | | | | | | [phone] | | +--------+--------+ + + + + Reason for Visit MRI/CAT Scan (Routine) +--------+--------+ + + + + | Status | Reason | Specialty | Diagnoses / | Referred By | Referred To | | | | | Procedures | Contact | Contact | +--------+--------+ + + + + | Closed | | Radiology | Diagnoses | [place], | [facility] [address] | | | | | Multiple | Karon | [address] | | | | | pulmonary | [address] | | | | | nodules | [address] | [place], [place] | | | | | Procedures | [address] | [address] Phone: | | | | | CT chest | [place], | | | | | without | [place] [address] | | | | | | contrast | Phone: | | | | | | | [phone] | | | | | | | Fax: | | | | | | | [phone] | | +--------+--------+ + + + + Encounter Details +--------+ + + + + | Date | Type | Department | Care Team | Description | +--------+ + + + + | 10/12/ | Hospital | [facility] | [place], | Multiple pulmonary | | 2018 | [facility] | [place], | nodules | | | | [address] | [address] | | | | | [address] | [place] [address] | | | | | [place] [address] | [phone] | | | | | [phone] | | | +--------+ + + + + Social History + +-------+ +--------+ + | Tobacco Use | Types | Packs/Day | Years | Date | | | | | Used | | + +-------+ +--------+ + | Former Smoker | | 1.5 | 15 | Quit: 02/26/1969 | + +-------+ +--------+ + + +---+---+---+ | Smokeless Tobacco: | | | | | Never Used | | | | + +---+---+---+ + + +---------+ + | Alcohol Use | Drinks/We | oz/Week | Comments | | | ek | | | + + +---------+ + | No | | | | + + +---------+ + + + + | Sex Assigned at | Date Recorded | | | | + + + | Not on file | | + + + as of this encounter Medications at Time of Discharge + + + +---------+ + + | Medication | Sig. | Disp. | Refills | Start | End Date | | | | | | Date | | + + + +---------+ + + | albuterol | Take 2.5 mg by | | | 03/09/19 | | | (PROVENTIL) (2.5 | nebulization every 4 | | | 16 | | | MG/3ML) 0.083% | (four) hours as | | | | | | nebulizer solution | needed. 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 | | | | | | Cervical stenosis of | | | | | | | spine | | | | | | + + + +---------+ + + | Blood Glucose | 1 Device by Does not | | 0 | 06/09/19 | | | Monitoring Suppl | apply route daily. | | | 18 | | | (ONE TOUCH ULTRA | TO TEST BLOOD SUGAR | | | | | | MINI) w/Device KIT | | | | | | + + + +---------+ + + | cetirizine | Take 10 mg by mouth | | | | | | (ZYRTEC) 10 MG | daily. | | | | | | tablet | | | | | | + + + +---------+ + + | cycloSPORINE | Place 1 drop into | | | | | | (RESTASIS) 0.05 % | both eyes every 12 | | | | | | ophthalmic emulsion | (twelve) hours. | | | | | + + + +---------+ + + | cycloSPORINE | 1 drop. | | | | | | (RESTASIS) 0.05 % | | | | | | | ophthalmic emulsion | | | | | | + + + +---------+ + + | fluticasone | 2 sprays by Each | | | 08/26/19 | | | (FLONASE) 50 MCG/ACT | Nare route daily. | | | 15 | | | nasal | | | | | | + + + +---------+ + + | Fluticasone | Inhale 1 puff into | 1 each | 11 | 04/11/19 | | | Furoate-Vilanterol | the lungs daily. | | | 18 | | | (BREO ELLIPTA) | | | | | | | 200-25 MCG/INH | | | | | | | AEPBIndications: | | | | | | | Asthma with COPD | | | | | | | (chronic obstructive | | | | | | | pulmonary disease) | | | | | | | ([facility]) | | | | | | + + + +---------+ + + | gabapentin | Take 300 mg by mouth | | | | | | (NEURONTIN) 300 MG | 3 (three) times | | | | | | capsule | daily. | | | | | + + + +---------+ + + | ibuprofen (MOTRIN) | Take 800 mg by mouth | | | | | | 800 MG tablet | every 8 (eight) | | | | | | | hours as needed for | | | | | | | Pain. | | | | | + + + +---------+ + + | ipratropium | Take 0.5 mg by | | | | | | (ATROVENT) 0.02 % | nebulization 4 | | | | | | nebulizer solution | (four) times daily. | | | | | + + + +---------+ + + | losartan (COZAAR) | Take 50 mg by mouth | | | | | | 50 MG tablet | daily. | | | | | + + + +---------+ + + | metFORMIN | Take 500 mg by mouth | | | | | | (GLUCOPHAGE) 500 MG | 2 (two) times daily | | | | | | tablet | with meals. | | | | | + + + +---------+ + + | montelukast | Take 1 tablet by | 30 | 11 | 02/27/19 | | | (SINGULAIR) 10 MG | mouth nightly. | tablet | | 18 | | | tabletIndications: | | | | | | | Asthma with COPD | | | | | | | (chronic obstructive | | | | | | | pulmonary disease) | | | | | | | ([facility]) | | | | | | + + + +---------+ + + | ONE TOUCH ULTRA | use as directed | | 1 | 06/09/19 | | | TEST test strip | | | | 18 | | + + + +---------+ + + | pramipexole | take 1 tablet by | 90 | 5 | 08/04/19 | | | (MIRAPEX) 0.25 MG | mouth at noon and 2 | tablet | | 18 | | | tabletIndications: | tab at 8 pm. | | | | | | RLS (restless legs | | | | | | | syndrome) | | | | | | + + + +---------+ + + | predniSONE | Take 2 tabs daily | 11 | 0 | 07/25/19 | | | (DELTASONE) 20 MG | for 3 days, then 1 | tablet | | 18 | | | tabletIndications: | tab daily for 5 days | | | | | | Asthma with COPD | then STOP. | | | | | | (chronic obstructive | | | | | | | pulmonary disease) | | | | | | | ([facility]) | | | | | | + + + +---------+ + + | Respiratory | Please provide | | | 04/06/19 | | | Therapy Supplies | portable nebulizer. | | | 16 | | | (NEBULIZER | Use as directed with | | | | | | COMPRESSOR) KIT | nebulizer | | | | | | | medication. Dx: | | | | | | | J45.40, J44.9 NAKIA: | | | | | | | Lifetime. | | | | | + + + +---------+ + + | simvastatin | Take one tablet | | | 01/17/20 | | | (ZOCOR) 20 MG tablet | daily | | | 15 | | + + + +---------+ + + | VENTOLIN HFA 108 | Inhale 2 puffs into | | | 12/09/19 | | | (90 BASE) MCG/ACT | the lungs every 4 | | | 16 | | | inhaler | (four) hours as | | | | | | | needed. | | | | | + + + +---------+ + + as of this encounter Plan of Treatment +--------+---------+ + + + | Date | Type | Specialty | Care Team | Description | +--------+---------+ + + + | 12/17/ | Office | Neurology | Ramiro Medrano MD [address] | | | 2017 | Visit | | [place], | | | | | | [place] [address] | | | | | | [phone] | | | | | | | | +--------+---------+ + + + | 12/21/ | Office | Pulmonology | [place], | | | 2017 | Visit | | [place] | | | | | | MD [address] | | | | | | [place] [address] | | | | | | [phone] | | | | | | | | +--------+---------+ + + + as of this encounter Procedures + +--------+ + + + | Procedure Name | Priori | Date/Time | Associated Diagnosis | Comments | | | ty | | | | + +--------+ + + + | CT CHEST WO CONTRAST | Routin | 10/12/2017 | Multiple pulmonary | Results for this | | | e | 10:29 AM | nodules | procedure are in the | | | | PDT | | results section. | + +--------+ + + + in this encounter Results CT chest without contrast (10/12/2017 10:29 AM) + + + | Impressions | Performed At | + + + | 1. Stable small pulmonary nodules. No further follow-up of these | [facility] | | nodules is recommended unless otherwise clinically indicated. | [facility] | | 2. Patchy blebs scattered through the periphery of the lung | | | parenchyma, perhaps with minimal paraseptal emphysema. | | | 3. Extensive postsurgical changes in the epigastrium | | | 4. Calcified granuloma along the surface of the liver 5. Other | | | benign findings as described. | | + + + + + + | Narrative | Performed At | + + + | HISTORY: Pulmonary nodules. Past smoker. Follow-up. COMPARISON: | [facility] | | 10/02/16, 10/14/15. TECHNIQUE: 5-mm axial CT images were | RADIOLOGY | | acquired using automated exposure control through the chest. 1 mm | | | axial reformations. 8mm axial MIP reformations. 2 mm coronal and | | | sagittal reformations. Oral Contrast: None IV contrast: None. | | | FINDINGS: The pulmonary nodule noted on the previous study are stable | | | as follows: 1. 1 mm nodule sequence 4 image 84 in the subpleural | | | lateral right upper lobe. 2. 2 mm nodule sequence 4 image 96 in | | | the subpleural posterior medial left lower lobe. 3. 3 mm nodule | | | sequence 4 image 133 in the pleural-based posterolateral left lower | | | lobe. 4. 2 mm nodule sequence 4 image 136 in the subpleural | | | posterior right lower lobe. 5. 3 mm nodule sequence 4 image 154 in | | | the pleural-based posterolateral left lower lobe. Anterior lower | | | cervical fusion is minimally included. Mild thoracic vertebral | | | endplate spurring. Osseous structures otherwise unremarkable. Mild | | | aortic, aortic trifurcation, subtle coronary arterial calcification. | | | No hilar or mediastinal adenopathy. Scans through the upper | | | abdomen show numerous clips surrounding the stomach at the GE | | | junction. Calcified granuloma along the surface of posterior medial | | | right hepatic dome. | | + + + + + | Procedure Note | + + | Omid, Rad Results In - 10/12/2017 11:40 AM PDT HISTORY:Pulmonary nodules. Past smoker. | | Follow-up.COMPARISON:10/02/16, 10/14/15.TECHNIQUE:5-mm axial CT images were acquired | | using automated exposure control through the chest. 1 mm axial reformations. 8mm axial | | MIP reformations. 2 mm coronal and sagittal reformations.Oral Contrast: NoneIV contrast: | | None.FINDINGS:The pulmonary nodule noted on the previous study are stable as follows:1. | | 1 mm nodule sequence 4 image 84 in the subpleural lateral right upper lobe.2. 2 mm | | nodule sequence 4 image 96 in the subpleural posterior medial left lower lobe.3. 3 mm | | nodule sequence 4 image 133 in the pleural-based posterolateral left lower lobe.4. 2 mm | | nodule sequence 4 image 136 in the subpleural posterior right lower lobe.5. 3 mm | | nodule sequence 4 image 154 in the pleural-based posterolateral left lower lobe.Anterior | | lower cervical fusion is minimally included. Mild thoracic vertebral endplate spurring. | | Osseous structures otherwise unremarkable.Mild aortic, aortic trifurcation, subtle | | coronary arterial calcification. No hilar or mediastinal adenopathy.Scans through the | | upper abdomen show numerous clips surrounding the stomach at the GE junction. Calcified | | granuloma along the surface of posterior medial right hepatic dome.IMPRESSION:1. Stable | | small pulmonary nodules. No further follow-up of these nodules is recommended unless | | otherwise clinically indicated.2. Patchy blebs scattered through the periphery of the | | lung parenchyma, perhaps with minimal paraseptal emphysema.3. Extensive postsurgical | | changes in the epigastrium4. Calcified granuloma along the surface of the liver5. | | Other benign findings as described.Electronically signed by Inder Munguia MD on | | 10/12/2017 11:35 AM | |Mild aortic, aortic trifurcation, subtle coronary arterial calcification. No hilar or media stinal adenopathy. | | | |Scans through the upper abdomen show numerous clips surrounding the stomach at the GE junct ion. Calcified granuloma along the surface of posterior medial right hepatic dome. | | | |IMPRESSION: | |1. Stable small pulmonary nodules. No further follow-up of these nodules is recommended un less otherwise clinically indicated. | |2. Patchy blebs scattered through the periphery of the lung parenchyma, perhaps with minim al paraseptal emphysema. | |3. Extensive postsurgical changes in the epigastrium | |4. Calcified granuloma along the surface of the liver | |5. Other benign findings as described. | | | | | + + + + + + + | Performing | Address | City/State/Zipcode | Phone Number | | Organization | | | | + + + + + | [facility] | [address] | [place] [address] | | + + + + + in this encounter Visit Diagnoses + + | Diagnosis | + + | Multiple pulmonary nodules | + + | Other nonspecific abnormal finding of lung field | + +"
--- OUTSIDE RECORDS SUMMARY | ~2017-11-20 | XMS | Clinical Summary ---
Demographics + + + | Address | [address] | | | [place] [address] | + + + | Home Phone | | + + + | Preferred Language | Unknown | + + + | Marital Status | | + + + | Rastafarian Affiliation | Unknown | + + + | Race | Unknown | + + + | Ethnic Group | Unknown | + + + Author + + + | Author | [facility] | + + + | Organization | [facility] | + + + | Address | Unknown | + + + | Phone | Unavailable | + + + Support + + + + + | Name | Relationship | Address | Phone | + + + + + | Hannah Alvarez | ECON | [address] | | | | | [place] | | | | | [address] | | + + + + + Care Team Providers + +------+ + | Care Clay Puddler Name | Role | Phone | + +------+ + | Eugenio Gallego MD | PP | | + +------+ + Allergies + + + + + + | Active Allergy | Reactions | Severity | Noted | Comments | | | | | Date | | + + + + + + | Oxycodone | Nausea Only | Low | 09/27/19 | | | | | | 17 | | + + + + + + Current Medications + + + +---------+------+------+-------+ | Prescription | Sig. | Disp. | Refills | Star | End | Statu | | | | | | t | Date | s | | | | | | Date | | | + + + +---------+------+------+-------+ | albuterol | Take 2.5 mg by | | | 02/26 | | Activ | | (PROVENTIL) (2.5 | nebulization every 4 | | | 2/20 | | e | | MG/3ML) 0.083% | (four) hours as | | | 16 | | | | nebulizer solution | needed. | | | | | | + + + +---------+------+------+-------+ | fluticasone | 2 sprays by Each | | | / | | Activ | | (FLONASE) 50 MCG/ACT | Nare route daily. | | | 0/20 | | e | | nasal | | | | 15 | | | + + + +---------+------+------+-------+ | gabapentin | Take 300 mg by mouth | | | | | Activ | | (NEURONTIN) 300 MG | 3 (three) times | | | | | e | | capsule | daily. | | | | | | + + + +---------+------+------+-------+ | losartan (COZAAR) | Take 50 mg by mouth | | | | | Activ | | 50 MG tablet | daily. | | | | | e | + + + +---------+------+------+-------+ | metFORMIN | Take 500 mg by mouth | | | | | Activ | | (GLUCOPHAGE) 500 MG | 2 (two) times daily | | | | | e | | tablet | with meals. | | | | | | + + + +---------+------+------+-------+ | VENTOLIN HFA 108 | Inhale 2 puffs into | | | 10/1 | | Activ | | (90 BASE) MCG/ACT | the lungs every 4 | | | 3/20 | | e | | inhaler | (four) hours as | | | 16 | | | | | needed. | | | | | | + + + +---------+------+------+-------+ | ibuprofen (MOTRIN) | Take 800 mg by mouth | | | | | Activ | | 800 MG tablet | every 8 (eight) | | | | | e | | | hours as needed for | | | | | | | | Pain. | | | | | | + + + +---------+------+------+-------+ | cetirizine | Take 10 mg by mouth | | | | | Activ | | (ZYRTEC) 10 MG | daily. | | | | | e | | tablet | | | | | | | + + + +---------+------+------+-------+ | cycloSPORINE | Place 1 drop into | | | | | Activ | | (RESTASIS) 0.05 % | both eyes every 12 | | | | | e | | ophthalmic emulsion | (twelve) hours. | | | | | | + + + +---------+------+------+-------+ | simvastatin | Take one tablet | | | 11/2 | | Activ | | (ZOCOR) 20 MG tablet | daily | | | 1/20 | | e | | | | | | 15 | | | + + + +---------+------+------+-------+ | ipratropium | Take 0.5 mg by | | | | | Activ | | (ATROVENT) 0.02 % | nebulization 4 | | | | | e | | nebulizer solution | (four) times daily. | | | | | | + + + +---------+------+------+-------+ | baclofen | Take 0.5-1 tablets | 60 | 2 | 10/27 | | Activ | | (LIORESAL) 10 MG | by mouth 2 (two) | tablet | | 10/15 | | e | | tabletIndications: | times daily as | | | 17 | | | | Status post cervical | needed (muscle | | | | | | | spinal fusion, | spasms). | | | | | | | Cervical stenosis of | | | | | | | | spine | | | | | | | + + + +---------+------+------+-------+ | montelukast | Take 1 tablet by | 30 | 11 | 01/0 | | Activ | | (SINGULAIR) 10 MG | mouth nightly. | tablet | | 2/20 | | e | | tabletIndications: | | | | 18 | | | | Asthma with COPD | | | | | | | | (chronic obstructive | | | | | | | | pulmonary disease) | | | | | | | | ([facility]) | | | | | | | + + + +---------+------+------+-------+ | Fluticasone | Inhale 1 puff into | 1 each | 11 | 03/29 | | Activ | | Furoate-Vilanterol | the lungs daily. | | | 06/15 | | e | | (BREO ELLIPTA) | | | | 18 | | | | 200-25 MCG/INH | | | | | | | | AEPBIndications: | | | | | | | | Asthma with COPD | | | | | | | | (chronic obstructive | | | | | | | | pulmonary disease) | | | | | | | | ([facility]) | | | | | | | + + + +---------+------+------+-------+ | Respiratory | Please provide | | | 02/0 | | Activ | | Therapy Supplies | portable nebulizer. | | | 11/15 | | e | | (NEBULIZER | Use as directed with | | | 16 | | | | COMPRESSOR) KIT | nebulizer | | | | | | | | medication. Dx: | | | | | | | | J45.40, J44.9 NAKIA: | | | | | | | | Lifetime. | | | | | | + + + +---------+------+------+-------+ | cycloSPORINE | 1 drop. | | | | | Activ | | (RESTASIS) 0.05 % | | | | | | e | | ophthalmic emulsion | | | | | | | + + + +---------+------+------+-------+ | Blood Glucose | 1 Device by Does not | | 0 | 04/1 | | Activ | | Monitoring Suppl | apply route daily. | | | 3/20 | | e | | (ONE TOUCH ULTRA | TO TEST BLOOD SUGAR | | | 18 | | | | MINI) w/Device KIT | | | | | | | + + + +---------+------+------+-------+ | ONE TOUCH ULTRA | use as directed | | 1 | 04/1 | | Activ | | TEST test strip | | | | 3/20 | | e | | | | | | 18 | | | + + + +---------+------+------+-------+ | azithromycin | TAKE TWO TABLETS BY | 6 | 0 | 05/2 | | Activ | | (ZITHROMAX) 250 MG | MOUTH NOW then ONE | tablet | | 11/15 | | e | | tabletIndications: | TABLET DAILY DAY 2-5 | | | 18 | | | | Asthma with COPD | | | | | | | | (chronic obstructive | | | | | | | | pulmonary disease) | | | | | | | | ([facility]) | | | | | | | + + + +---------+------+------+-------+ | predniSONE | Take 2 tabs daily | 11 | 0 | 05/2 | | Activ | | (DELTASONE) 20 MG | for 3 days, then 1 | tablet | | 11/15 | | e | | tabletIndications: | tab daily for 5 days | | | 18 | | | | Asthma with COPD | then STOP. | | | | | | | (chronic obstructive | | | | | | | | pulmonary disease) | | | | | | | | ([facility]) | | | | | | | + + + +---------+------+------+-------+ | pramipexole | take 1 tablet by | 90 | 5 | 06/0 | | Activ | | (MIRAPEX) 0.25 MG | mouth at noon and 2 | tablet | | 10/15 | | e | | tabletIndications: | tab at 8 pm. | | | 18 | | | | RLS (restless legs | | | | | | | | syndrome) | | | | | | | + + + +---------+------+------+-------+ Active Problems + + + | Problem | Noted Date | + + + | Coronary atherosclerosis | 07/24/2017 | + + + + + | Overview: Overview: | | possible prior heart attack? | + + + + + | Diabetic neuropathy ([facility]) | 07/24/2017 | + + + | DM type 2 (diabetes mellitus, type 2) ([facility]) | 07/24/2017 | + + + | Hyperlipidemia | 07/24/2017 | + + + | Hypertension | 07/24/2017 | + + + | Nasal polyposis | 07/24/2017 | + + + | Personal history of tobacco use, presenting hazards to health | 07/24/2017 | + + + | RLS (restless legs syndrome) | 01/09/2017 | + + + | Herniation of cervical intervertebral disc with radiculopathy | 08/28/2016 | + + + | Multiple pulmonary nodules | 08/14/2016 | + + + | Cervical stenosis of spine | 07/25/2016 | + + + | DDD (degenerative disc disease), cervical | 07/25/2016 | + + + | Status post cervical spinal fusion | 07/25/2016 | + + + | Asthma with COPD (chronic obstructive pulmonary disease) ([facility]) | 03/14/2016 | + + + | Acute bronchitis | 03/14/2016 | + + + | Chronic allergic rhinitis | 03/14/2016 | + + + | Chronic maxillary sinusitis | 03/14/2016 | + + + | Dysphagia | 05/06/2014 | + + + + + | Overview: Overview: | | Mild without laryngeal penetration on swallow study 02/2014 | + + + + + | Carpal tunnel syndrome on both sides | 02/13/2012 | + + + Resolved Problems + + + + | Problem | Noted | Resolved | | | Date | Date | + + + + | Cervical radiculopathy | 07/26/19 | | | | 17 | 7 | + + + + Encounters +--------+ + + + + | Date | Type | Specialty | Care Team | Description | +--------+ + + + + | 10/15/ | Telephone | | Gwen Walker RN | | | 2017 | | | | | +--------+ + + + + | 10/12/ | Hospital | | [place], | Multiple pulmonary | | 2017 | Encounter | | Karon Pearson, | nodules | | | | | MD | | +--------+ + + + + from Last 3 Months Immunizations + + + + | Name | Dates Previously Given | Next Due | + + + + | INFLUENZA, PF | 04/06/2015 | | | TRIVALENT HIGH DOSE | | | | 65 YRS [place] > | | | + + + + | Influenza, PF | 12/12/2013, 12/16/2012, 12/11/2011 | | | Recombinant, | | | | Trivalent (Flublok) | | | + + + + | Influenza, PF | 12/16/2012, 12/11/2011 | | | Trivalent | | | + + + + | Pneumococcal | 09/26/2010 | | | Polysaccharide | | | | 23-valent | | | + + + + Social History + [...] | | | + +---+---+---+ + + | Tobacco Cessation: Counseling Given: No | + + + + +---------+ + | Alcohol Use | Drinks/We | oz/Week | Comments | | | ek | | | + + +---------+ + | No | | | | + + +---------+ + + + + | Sex Assigned at | Date Recorded | | | | + + + | Not on file | | + + + Last Filed Vital Signs + + + + | Vital Sign | Reading | Time Taken | + + + + | Blood Pressure | 108/54 | 08/03/2017 1:17 PM PDT | + + + + | Pulse | 60 | 08/03/2017 1:17 PM PDT | + + + + | Temperature | 36.7 C (98 F) | 07/24/2017 8:56 AM PDT | + + + + | Respiratory Rate | 16 | 01/15/2017 10:14 AM PST | + + + + | Oxygen Saturation | 99% | 08/03/2017 1:17 PM PDT | + + + + | Inhaled Oxygen | - | - | | Concentration | | | + + + + | Weight | 78.2 kg (172 lb 6.4 | 08/03/2017 1:17 PM PDT | | | oz) | | + + + + | Height | 170.2 cm (5' 7") | 08/03/2017 1:17 PM PDT | + + + + | Body Mass Index | 27 | 08/03/2017 1:17 PM PDT | + + + + Plan of Treatment +--------+---------+ + + + | Date | Type | Specialty | Care Team | Description | +--------+---------+ + + + | 12/17/ | Office | | Ramiro Medrano MD [address] | | | 2017 | Visit | | [place] | | | | | | [place] [address] | | | | | | [phone] | | | | | | | | +--------+---------+ + + + | 12/21/ | Office | | [place], | | | 2017 | Visit | | Karon Pearson | | | | | | MD [address] | | | | | | [place] [address] | | | | | | [phone] | | | | | | | | +--------+---------+ + + + + + + + + | Health Maintenance | Due Date | Last Done | Comments | + + + + + | Diabetic Eye Exam | | | | | | 7 | | | + + + + + | Diabetic Foot Exam | | | | | | 7 | | | + + + + + | Hemoglobin A1c | | | | | | 7 | | | + + + + + | Microalbumin | | | | | Screening | 7 | | | + + + + + | Vaccine: | | | | | Dtap/Tdap/Td (1 - | 6 | | | | Tdap) | | | | + + + + + | Vaccine: Zoster (1 | | | | | of 2) | 7 | | | + + + + + | Vaccine: | | 09/26/2010 | | | Pneumococcal 65+ | 2 | | | | Low/Medium Risk (2 | | | | | of 2 - PCV13) | | | | + + + + + | Vaccine: Influenza | | 04/06/2015, 12/12/2013, | | | (#1) | 8 | 12/16/2012, Additional history | | | | | exists | | + + + + + Procedures + +--------+ + + + | [...] section. | + +--------+ + + + from Last [address] chest without contrast (10/12/2017 10:29 [...] Pulmonary nodules. Past smoker. Follow-up. COMPARISON: | [facility] | | 10/02/16, 10/14/15. TECHNIQUE: 5-mm axial [...] [facility] | [address] | [place] [address] | | + + + + + from Last 3 Months Insurance + +--------+ +------+-------+ + | Payer | Benefi | Subscriber | Type | Phone | Address | | | t Plan | ID | | | | | | / | | | | | | | Group | | | | | + +--------+ +------+-------+ + | MEDICARE | MEDICA | [id number] | | | [address] | | | RE | | | | [place] [address] | | | IP-OP | | | | | + +--------+ +------+-------+ + | COMMERCIAL OTHER | COMMER | [id number] | | | | | | CIAL | | | | | | | GENERI | | | | | | | C PLAN | | | | | + +--------+ +------+-------+ + + +--------+ +--------+ + + | Guarantor Name | Accoun | Relation to | Date | Phone | Billing Address | | | t Type | Patient | of | | | | | | | | | | + +--------+ +--------+ + + | YOSEPH ALVAREZ | Person | Self | [birth year] | 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
--- OUTSIDE RECORDS SUMMARY | ~2017-11-20 | XMS | Encounter Summary ---
Demographics + + + | Address | [address] | | | [place] [address] | + + + | Home Phone | | + + + | Preferred Language | Unknown | + + + | Marital Status | | + + + | Scientology Affiliation | Unknown | + + + | Race | Unknown | + + + | Ethnic Group | Unknown | + + + Author + + + | Author | [facility] | + + + | Organization | [facility] | + + + | Address | Unknown | + + + | Phone | Unavailable | + + + Support + + + + + | Name | Relationship | Address | Phone | + + + + + | Hannah Alvarez | ECON | [address] | | | | | [place] | | | | | [address] | | + + + + + Care Team Providers + +------+ + | Care Correctional Agency Director Name | Role | Phone | + [...] | Radiology | Diagnoses | [place], | [address] | | | | | Multiple | Karon | [address] | | | | | pulmonary | MD [address] | [address] | | | | | nodules | [address] | [place] | | | | | Procedures | [place] | [address] Phone: | | | | | CT chest | [place], | [phone] | | | | | without | [place] [address] | | | | | | contrast | Phone: | | | | | | | [phone] | | | | | | | Fax: | | | | | | | [phone] | | +--------+--------+ + + + + MRI/CAT Scan (Routine) +--------+--------+ + + + + | Status | Reason | Specialty | Diagnoses / | Referred By | Referred To | | | | | Procedures | Contact | Contact | +--------+--------+ + + + + | Closed | | Radiology | Diagnoses | [place], | [address] | | | | | Multiple | Karon | [address] | | | | | pulmonary | MD [address] | [address] | | | | | nodules | [address] | [place], [place] | | | | | Procedures | [address] | [address] Phone: | | | | | CT chest | [place], | | | | | without | [place] [address] | | | | | | contrast | Phone: | | | | | | | [phone] | | | | | | | Fax: | | | | | | | [phone] | | +--------+--------+ + + + + Reason for Visit MRI/CAT Scan (Routine) +--------+--------+ + + + + | Status | Reason | Specialty | Diagnoses / | Referred By | Referred To | | | | | Procedures | Contact | Contact | +--------+--------+ + + + + | Closed | | Radiology | Diagnoses | [place], | [facility] | | | | | Multiple | Karon | [address] | | | | | pulmonary | MD [address] | [address] | | | | | nodules | [address] | [place], [place] | | | | | Procedures | [place] | [address] Phone: | | | | | CT chest | [place], | | | | | [place] | [place] [address] | | | | | | contrast | Phone: | | | | | | | [phone] | | | | | | | Fax: | | | | | | | [phone] | | +--------+--------+ + + + + Encounter Details +--------+ + + + + | Date | Type | Department | Care Team | Description | +--------+ + + + + | 10/12/ | Hospital | [facility] | [place], | Multiple pulmonary | | 2018 | [facility] | Karon Pearson, | nodules | | | | [address] | [address] | | | | | [address] | [place] [address] | | | | | [place] [address] | [phone] | | | | | [phone] | | | +--------+ + + + [...] | | | | | ([facility]) | | | | | | + [...] | | | | | ([facility]) | | | | | | + [...] | | | | | ([facility]) | | | | | | + [...] | | | | | ([facility]) | | | | | | + [...] [place], | | | | | | [place] [address] | | | | | | [phone] | | | | | | | | +--------+---------+ + + + | 12/21/ | Office | Pulmonology | [place], | | | 2017 | Visit | | Karon Pearson | | | | | | MD [address] | | | | | | [place] [address] | | | | | | [phone] | | | | | | | [...] Pulmonary nodules. Past smoker. Follow-up. COMPARISON: | [facility] | | 10/02/16, 10/14/15. TECHNIQUE: 5-mm axial [...] [facility] | [address] | [place] [address] | | + + + + + in this encounter Visit Diagnoses + + | Diagnosis | + + | Multiple pulmonary nodules | + + | Other nonspecific abnormal finding of lung field | + +"
--- OUTSIDE RECORDS SUMMARY | ~2017-11-20 | XMS | Encounter Summary ---
Demographics + + + | Address | [address] | | | [place] [address] | + + + | Home Phone | | + + + | Preferred Language | Unknown | + + + | Marital Status | | + + + | Voodoo Affiliation | Unknown | + + + | Race | Unknown | + + + | Ethnic Group | Unknown | + + + Author + + + | Author | [facility] | + + + | Organization | [facility] | + + + | Address | Unknown | + + + | Phone | Unavailable | + + + Support + + + + + | Name | Relationship | Address | Phone | + + + + + | Hannah Alvarez | ECON | [address] | | | | | [place] | | | | | [address] | | + + + + + Care Team Providers + +------+ + | Care Link Trainer Operator Name | Role | Phone | + +------+ + | Eugenio Gallego MD | PCP | | + +------+ + Encounter Details +--------+ + + + + | Date | Type | Department | Care Team | Description | +--------+ + + + + | 10/15/ | Telephone | [facility] | Gwen Walker RN | | | 2017 | | Pulmonology [address] | | | | | | [address] | | | | | | [place] | | | | | | [address] | | | | | | [phone] | | | +--------+ + + + [...] + + + as of this encounter Plan of Treatment +--------+---------+ + + + | Date | Type | Specialty | Care Team | Description | +--------+---------+ + + + | 12/17/ | Office | Neurology | Ramiro Medrano MD [address] | | | 2017 | Visit | | [place] | | | | | | [place] [address] | | | | | | [phone] | | | | | | | | +--------+---------+ + + + | 12/21/ | Office | Pulmonology | [place] | | | 2017 | Visit | | Karon Pearson | | | | | | MD [address] | | | | | | [place] [address] | | | | | | [phone] | | | | | | | | +--------+---------+ + + + as of this encounter Visit Diagnoses Not on filein this encounter"
--- OUTSIDE RECORDS SUMMARY | ~2017-11-20 | XMS | Clinical Summary ---
Demographics + + + | Address | [address] | | | [place] [address] | + + + | Home Phone | | + + + | Preferred Language | Unknown | + + + | Marital Status | | + + + | Baptism Affiliation | 1041 | + + + | Race | Unknown | + + + | Ethnic Group | Unknown | + + + Author + + + | Author | [facility] | | | and [place] | + + + | Organization | [facility] | | | and [place] | + + + | Address | Unknown | + + + | Phone | Unavailable | + + + Support + + + + + | Name | Relationship | Address | Phone | + + + + + | Hannah Alvarez | ECON | [address] | | | | | [place] | | | | | [address] | | + + + + + | Eugene Alvarez | ECON | NA | | | | | NA, | | + + + + + Care Team Providers + +------+ + | Care Divorce Attorney Name | Role | Phone | + +------+ + | Eugenio Gallego MD | PP | | + +------+ + Allergies No Known Allergies Current Medications + + + +---------+------+------+-------+ | Prescription | Sig. | Disp. | Refills | Star | End | Statu | | | | | | t | Date | s | | | | | | Date | | | + + + +---------+------+------+-------+ | metFORMIN | Take 500 mg by mouth | | | | | Activ | | (GLUCOPHAGE) 500 mg | 2 times daily (with | | | | | e | | tablet | breakfast & | | | | | | | | dinner). | | | | | | + + + +---------+------+------+-------+ | gabapentin | Take 300 mg by mouth | | | | | Activ | | (NEURONTIN) 300 mg | nightly. One in the | | | | | e | | capsule | morning and 2 | | | | | | | | nightly | | | | | | + + + +---------+------+------+-------+ | ibuprofen | Take 800 mg by mouth | | | | | Activ | | (ADVIL,MOTRIN) 800 | every 6 hours as | | | | | e | | MG tablet | needed. | | | | | | + + + +---------+------+------+-------+ | aspirin 81 MG | Take 81 mg by mouth | | | | | Activ | | tablet | Daily. | | | | | e | + + + +---------+------+------+-------+ | Calcium | Take 600 mg by mouth | | | | | Activ | | Carb-Cholecalciferol | Daily. | | | | | e | | (CALCIUM + D3 PO) | | | | | | | + + + +---------+------+------+-------+ | losartan (COZAAR) | Take 50 mg by mouth | | | | | Activ | | 50 mg tablet | Daily. | | | | | e | + + + +---------+------+------+-------+ | Spacer/Aero | Use with inhaler as | 1 each | 1 | 04/2 | | Activ | | Chamber Mouthpiece | directed. | | | 1/20 | | e | | MISC | | | | 14 | | | + + + +---------+------+------+-------+ | cetirizine | Take 10 mg by mouth | | | | | Activ | | (ZYRTEC) 10 mg | Daily. | | | | | e | | tablet | | | | | | | + + + +---------+------+------+-------+ | cycloSPORINE | Place 1 drop into | | | | | Activ | | (RESTASIS) 0.05% | both eyes 2 times | | | | | e | | ophthalmic emulsion | daily. | | | | | | + + + +---------+------+------+-------+ | fluticasone | 2 sprays by Nasal | 48 g | 3 | 06/3 | | Activ | | (FLONASE) 50 | route Daily. | | | 0/20 | | e | | mcg/nasal spray | | | | 15 | | | + + + +---------+------+------+-------+ | VENTOLIN HFA 108 | INHALE 2 PUFFS BY | 18 g | 5 | 11/2 | | Activ | | (90 BASE) MCG/ACT | MOUTH INTO THE LUNGS | | | 3/20 | | e | | inhaler | EVERY 4 HOURS | | | 15 | | | | | NEEDED FOR WHEEZING | | | | | | | | OR SHORTNESS OF | | | | | | | | BREATH | | | | | | + + + +---------+------+------+-------+ | albuterol 2.5 mg/3 | Take 3 mLs by | 360 | 5 | 01/1 | | Activ | | mL nebulizer | nebulization every 6 | vial | | 2/20 | | e | | solution | hours as needed for | | | 16 | | | | | Wheezing or | | | | | | | | Shortness of Breath. | | | | | | | | Dx: J44.9 NAKIA: | | | | | | | | Lifetime | | | | | | + + + +---------+------+------+-------+ | simvastatin | Take one tablet | | | 11/2 | | Activ | | (ZOCOR) 20 mg tablet | daily | | | 1/20 | | e | | | | | | 15 | | | + + + +---------+------+------+-------+ | rOPINIrole | Take two tablets at | | | 01/1 | | Activ | | (REQUIP) 0.25 mg | night | | | 20 | | e | | tablet | | | | 16 | | | + + + +---------+------+------+-------+ | Respiratory | Please provide | 1 each | 0 | 02/0 | | Activ | | [...] | | + + + +---------+------+------+-------+ | | Inhale 1 puff into | 3 each | 3 | 06/0 | | Activ | | fluticasone-vilanter | the lungs Daily. | | | 09/14 | | e | | ol (SYEDAO ELLIPTA) | | | | 16 | | | | 200-25 mcg/puff | | | | | | | | inhaler | | | | | | | + + + +---------+------+------+-------+ | montelukast | Take 1 tablet by | 90 | 3 | 06 | | Activ | | (SINGULAIR) 10 mg | mouth nightly. | tablet | | 7/20 | | e | | tablet | | | | 16 | | | + + + +---------+------+------+-------+ Active Problems + + + | Problem | Noted Date | + + + | COPD (chronic obstructive pulmonary disease) (HCC) | 08/04/2014 | + + + | Asthma | 08/04/2014 | + + + | Dysphagia | 05/06/2014 | + + + + + | Overview: Mild without laryngeal penetration on swallow study | | 02/2014 | + + + + + | Hearing loss | 02/13/2014 | + + + | Hoarseness | 06/16/2013 | + + + | Allergic rhinitis | 01/27/2013 | + + + | Carpal tunnel syndrome on both sides | 02/13/2012 | + + + | DDD (degenerative disc disease), cervical | 02/13/2012 | + + + | DM type 2 (diabetes mellitus, type 2) (HCC) | | + + + | Diabetic neuropathy (HCC) | | + + + | Arthritis | | + + + | Coronary artery disease | | + + + + + | Overview: possible prior heart attack? 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) | 01/28/20 | | | | 13 | 4 | + + + + | Heart attack (HCC) | | | | | | 3 | + + + + | Broken ribs | | | | | | 3 | + + + + + + | Overview: 3 Broken | + + Immunizations + + + + | Name | Dates Previously Given | Next Due | + + + + | INFLUENZA 66 Y OR >, | 04/06/2015 | | | TRIVALENT HIGH-DOSE | | | + + + + | INFLUENZA PF 19 Y OR | 12/12/2013, 12/16/2012, 12/11/2011 | | | >,TRIVALENT | | | | RECOMBINANT | | | + + + + | PNEUMOCOCCAL | 08/04/2014 | | | CONJUGATE 13-VALENT | | | | (PCV13) | | | + + + + | PNEUMOCOCCAL | 09/26/2010 | | | POLYSACCHARIDE | | | | 23-VALENT (PPSV23) | | | + + + + Family History + + +------+ + | Medical History | Relation | Name | Comments | + + +------+ + | Arthritis | Brother | | | + + +------+ + | Cancer | Brother | | leukemia | + + +------+ + | Other (see comment) | Brother | | Back problems | + + +------+ + | Arthritis | Father | | | + + +------+ + | Cancer | Father | | leukemia | + + +------+ + | Arthritis | Mother | | | + + +------+ + | Diabetes | Mother | | | + + +------+ + | Heart failure | Mother | | | + + +------+ + | Other (see comment) | Mother | | | + + +------+ + | Breast cancer | Sister | | | + + +------+ + | Heart disease | Sister | | | + + +------+ + | PVD | Sister | | | + + +------+ + | Parkinsonism | Sister | | | + + +------+ + + +------+ + + | Relation | Name | Status | Comments | + +------+ + + | Brother | | | leukemia | | | | (Age | | | | | 70) | | + +------+ + + | Father | | | leukemia | | | | (Age | | | | | 84) | | + +------+ + + | Mother | | | Heart Failure | | | | (Age | | | | | 95) | | + +------+ + + | Sister | | | Breast Cancer | + +------+ + + | Sister | | Alive | | + +------+ + + | Sister | | Alive | | + +------+ + + Social History + +-------+ +--------+ + | Tobacco Use | Types | Packs/Day | Years | Date | | | | | Used | | + +-------+ +--------+ + | Former Smoker | | 1 | 15 | Quit: 02/26/1969 | + [...] + + +---------+ + | No | 0 | 0.0 | Moderately | | | Standard | | | | | drinks or | | | | | | | | | | equivalen | | | | | t | | | + + +---------+ + + + + | Sex Assigned at | Date Recorded | | | | + + + | Not on file | | + + + Last Filed Vital Signs + + + + | Vital Sign | Reading | Time Taken | + + + + | Blood Pressure | 140/70 | 08/03/20151105 PDT | + + + + | Pulse | 72 | 08/03/20151105 PDT | + + + + | Temperature | 36.9 C (98.4 F) | 12/16/2012 1303 PDT | + + + + | Respiratory Rate | 14 | 08/04/2014 1242 PDT | + + + + | Oxygen Saturation | 97% | 08/03/20151105 PDT | + + + + | Inhaled Oxygen | - | - | | Concentration | | | + + + + | Weight | 88.6 kg (195 lb 4.8 | 08/03/20151105 PDT | | | oz) | | + + + + | Height | 172.7 cm (5' 8") | 08/03/20151105 PDT | + + + + | Body Mass Index | 29.7 | 08/03/20151105 PDT | + + + + Plan of Treatment + + + + + | Health Maintenance | Due Date | Last Done | Comments | + + + + + | Diabetic Eye Exam | | | | | (Bi-Annually) | 5 | | | + + + + + | Diabetic Foot Exam | | | | | | 5 | | | + + + + + | Hemoglobin A1c Q3 | | | | | Months | 5 | | | + + + + [...] + + + + | Vaccine: | Completed | 08/04/2014, 09/26/2010 | | | Pneumococcal 65+ | | | | | Low/Medium Risk | | | | + + + + + Results Not on filefrom Last 3 Months Insurance + +--------+ +--------+ +---------+ | Payer | Benefi | Subscriber | Type | Phone | Address | | | t Plan | ID | | | | | | / | | | | | | | Group | | | | | + +--------+ +--------+ +---------+ | MEDICARE | MEDICA | [id number] | Medica | [phone] | | | | RE | | re | [phone] | | | | PART A | | | | | | | AND B | | | | | + +--------+ +--------+ +---------+ | MEDICARE SUPPLEMENT | MEDICA | [id number] | Indemn | [phone] | | | OTHER | RE | | ity | [phone] | | | | SUPPLE | | | | | | | MENT | | | | | | | OTHER | | | | | + +--------+ +--------+ +---------+ + +--------+ +--------+ + + | Guarantor Name | Accoun | Relation to | Date | Phone | Billing Address | | | t Type | Patient | of | | | | | | | | | | + +--------+ +--------+ + + | YOSEPH ALVAREZ | Person | Self | [birth year] | Home: | [address] | | | al/Fam | | 1936 | [phone] | [place] | | | kevan | | | [phone] | + +--------+ +--------+ + +
--- OUTSIDE RECORDS SUMMARY | ~2017-11-20 | XMS | Clinical Summary ---
Demographics + + + | Address | [address] | | | [place] [address] | + + + | Home Phone | | + + + | Preferred Language | Unknown | + + + | Marital Status | | + + + | Restoration Affiliation | 1041 | + + + | Race | Unknown | + + + | Ethnic Group | Unknown | + + + Author + + + | Author | [facility] | | | and Bashirana | + + + | Organization | [facility] | | | and [...] [place] | | | | | [address] | | + + + + + | Eugene Alvarez | ECON | NA | | | | | NA, | | + + + + + Care Team Providers + +------+ + | Care Meal Temperer Name | Role | Phone | + [...] +--------+ +---------+ | MEDICARE | MEDICA | [id number] | Medica | [phone] | | | | RE | | re | [phone] | | | | PART A | | | | | | | AND B | | | | | + +--------+ +--------+ +---------+ | MEDICARE SUPPLEMENT | MEDICA | [id number] | Indemn | [phone] | | | [...] | Self | [birth year] | Home: | [address] | | | al/Fam | | 1936 | [phone] | [place] | | | [place] | | | [phone] | [phone] | + +--------+ +--------+ + +
--- OUTSIDE RECORDS SUMMARY | ~2017-11-20 | XMS | Clinical Summary ---
Demographics + + + | Address | [address] | | | [place] [address] | + + + | Home Phone | | + + + | Preferred Language | Unknown | + + + | Marital Status | | + + + | Presybeterian Affiliation | Unknown | + + + [...] [place] | | | | | [address] | | + + + + + Care Team Providers + +------+ + | Care Archives Director Name | Role | Phone | + +------+ + PP | Unavailable | + +------+ + Source Comments RODDY is fully live on both [facility] and [facility] InPatient.[facility] Allergies Not on File Current Medications [...] | + + + + + | Pneumococcal (Adult) | | | | | (1 of 2 - PCV13) | 2 | | | + + + + + | INFLUENZA VACCINE | | | | | (FLU SHOT) | 8 | | | + + + + + Results Not on filefrom Last 3 Months"
--- OUTSIDE RECORDS SUMMARY | ~2017-11-20 | XMS | Encounter Summary ---
Demographics + + + | Address | [address] | | | [place] [address] | + + + | Home Phone | | + + + | Preferred Language | Unknown | + + + | Marital Status | | + + + | Mormon Affiliation | Unknown | + + + | Race | Unknown | + + + | Ethnic Group | Unknown | + + + Author + + + | Author | [facility] | + + + | Organization | [facility] | + + + | Address | Unknown | + + + | Phone | Unavailable | + + + Support + + + + + | Name | Relationship | Address | Phone | + + + + + | Hannah Alvarez | ECON | [address] | | | | | [place] | | | | | [address] | | + + + + + Care Team Providers + +------+ + | Care Welding Machine Operator Helper Gas Name | Role | Phone | + +------+ + | Eugenio Gallego MD | PCP | | + +------+ + Encounter Details +--------+ + + + + | Date | Type | Department | Care Team | Description | +--------+ + + + + | 10/15/ | Telephone | [facility] | Gwen Walker RN | | | 2017 | | Pulmonology [address] | | | | | | [address] | | | | | | [place] | | | | | | [address] | | | | | | [phone] | | | +--------+ + + + [...] | | | | | | [place] [address] | | | | | | [phone] | | | | | | | | +--------+---------+ + + + | 12/21/ | Office | Pulmonology | [place] | | | 2017 | Visit | | Karon Pearson | | | | | | MD [address] | | | | | | [place] [address] | | | | | | [phone] | | | | | | | | +--------+---------+ + + + as of this encounter Visit Diagnoses Not on filein this encounter"
--- OUTSIDE RECORDS SUMMARY | ~2017-11-20 | XMS | Encounter Summary ---
Demographics + + + | Address | [address] | | | [place] [address] | + + + | Home Phone | | + + + | Preferred Language | Unknown | + + + | Marital Status | | + + + | Buddhist Affiliation | Unknown | + + + | Race | Unknown | + + + | Ethnic Group | Unknown | + + + Author + + + | Author | [facility] | + + + | Organization | [facility] | + + + | Address | Unknown | + + + | Phone | Unavailable | + + + Support + + + + + | Name | Relationship | Address | Phone | + + + + + | Hannah Alvarez | ECON | [address] | | | | | [place] | | | | | [address] | | + + + + + Care Team Providers + +------+ + | Care Radar Signal Processing Engineer Name | Role | Phone | + +------+ + | Eugenio Gallego MD | PCP | | + +------+ + Encounter Details +--------+ + + + + | Date | Type | Department | Care Team | Description | +--------+ + + + + | 10/15/ | Telephone | [facility] | Gwen Walker RN | | | 2017 | | Pulmonology [address] | | | | | | [address] | | | | | | [place] | | | | | | [address] | | | | | | [phone] | | | +--------+ + + + [...] | | | | | | [place] [address] | | | | | | [phone] | | | | | | | | +--------+---------+ + + + | 12/21/ | Office | Pulmonology | [place] | | | 2017 | Visit | | Karon Pearson | | | | | | MD [address] | | | | | | [place] [address] | | | | | | [phone] | | | | | | | | +--------+---------+ + + + as of this encounter Visit Diagnoses Not on filein this encounter"
--- OUTSIDE RECORDS SUMMARY | ~2017-11-20 | XMS | Clinical Summary ---
Demographics + + + | Address | [address] | | | [place] [address] | + + + | Home Phone | | + + + | Preferred Language | Unknown | + + + | Marital Status | | + + + | Mosque Affiliation | Unknown | + + + [...] [place] | | | | | [address] | | + + + + + Care Team Providers + +------+ + | Care Fertilizer Supervisor Name | Role | Phone | + +------+ + PP | Unavailable | + +------+ + Source Comments RODDY is fully live on both [facility] Ambulatory and [facility] InPatient.[facility] Allergies Not on File Current Medications Not [...]
--- OUTSIDE RECORDS SUMMARY | ~2017-11-20 | XMS | Clinical Summary ---
Demographics + + + | Address | [address] | | | [place] [address] | + + + | Home Phone | | + + + | Preferred Language | Unknown | + + + | Marital Status | | + + + | Presybeterian Affiliation | Unknown | + + + | Race | Unknown | + + + | Ethnic Group | Unknown | + + + Author + + + | Author | [facility] | + + + | Organization | [facility] | + + + | Address | Unknown | + + + | Phone | Unavailable | + + + Support + + + + + | Name | Relationship | Address | Phone | + + + + + | Hannah Alvarez | ECON | [address] | | | | | [place] | | | | | [address] | | + + + + + Care Team Providers + +------+ + | Care Scientist/Engineer Name | Role | Phone | + [...] | | | | | | | ([facility]LY [facility]) | | | | | | | [...] | | | | | | | ([facility]) | | | | | | | [...] | | | | | | | ([facility]) | | | | | | | [...] | | | | | | | ([facility]) | | | | | | | [...] + + + + | Diabetic neuropathy ([facility]) | 07/24/2017 | + + + | DM type 2 (diabetes mellitus, type 2) ([facility]) | 07/24/2017 | + + + | [...] | | | | | | [place] [address] | | | | | | [phone] | | | | | | | | +--------+---------+ + + + | 12/21/ | Office | | [place], | | | 2017 | Visit | | Karon Pearson | | | | | | MD [address] | | | | | | [place] [address] | | | | | | [phone] | | | | | | | [...] [facility] | [address] | [place] [address] | | + + + + + [...] +------+-------+ + | MEDICARE | MEDICA | [id number] | | | [address] | | | RE | | | | [place] [address] | | | IP-OP | | | | | + +--------+ +------+-------+ + | COMMERCIAL OTHER | COMMER | [id number] | | | | | | CIAL [...] | Self | [birth year] | Work: | [address] | | | al[address]Fam | | [phone] [address] | | | [place] | | | [phone] Home: | [place], [place] | | | | | | | [address] | | | | | | [phone] | | | | | | [phone] | | + +--------+ +--------+ + +
--- OUTSIDE RECORDS SUMMARY | ~2017-11-20 | XMS | Clinical Summary ---
Demographics + + + | Address | [address] | | | [place] [address] | + + + | Home Phone | | + + + | Preferred Language | Unknown | + + + | Marital Status | | + + + | Mandaeism Affiliation | Unknown | + + + [...] [place] | | | | | [address] | | + + + + + Care Team Providers + +------+ + | Care Binder Sorter Name | Role | Phone | + +------+ + PP | Unavailable | + +------+ + Source Comments RODDY is fully live on both [facility] and [facility] Allergies Not on File Current Medications [...]
--- OUTSIDE RECORDS SUMMARY | ~2017-11-20 | XMS | Clinical Summary ---
Demographics + + + | Address | [address] | | | [place] [address] | + + + | Home Phone | | + + + | Preferred Language | Unknown | + + + | Marital Status | | + + + | Latter-Day Affiliation | 1041 | + + + | Race | Unknown | + + + | Ethnic Group | Unknown | + + + Author + + + | Author | [facility] | | | and Bashirana | + + + | Organization | [facility] | | [...] [place] | | | | | [address] | | + + + + + | Eugene Alvarez | ECON | NA | | | | | NA, | | + + + + + Care Team Providers + +------+ + | Care Flat Lock Machine Operator Name | Role | Phone | [...] +--------+ +---------+ | MEDICARE | MEDICA | [id number] | Medica | [phone] | | | RE | | re | [phone] | | | | PART A | | | | | | | AND B | | | | | + +--------+ +--------+ +---------+ | MEDICARE SUPPLEMENT | MEDICA | [id number] | Indemn | [phone] | | [...] | Self | [birth year] | Home: | [address] | | | al/Fam | | [phone] | [phone] | [place] | | | kevan | | | [phone] | [phone] | + +--------+ +--------+ + +
--- OUTSIDE RECORDS SUMMARY | ~2017-11-20 | XMS | Clinical Summary ---
Demographics + + + | Address | [address] | | | [place] [address] | + + + | Home Phone | | + + + | Preferred Language | Unknown | + + + | Marital Status | | + + + | Adventist Affiliation | Unknown | + + + | Race | Unknown | + + + | Ethnic Group | Unknown | + + + Author + + + | Author | [facility] | + + + | Organization | [facility] | + + + | Address | Unknown | + + + | Phone | Unavailable | + + + Support + + + + + | Name | Relationship | Address | Phone | + + + + + | Hannah Alvarez | ECON | [address] | | | | | [place] | | | | | [address] | | + + + + + Care Team Providers + +------+ + | Care Director Imaging Name | Role | Phone | + [...] | | | | | | | ([facility]) | | | | | | | [...] | | | | | | | ([facility]) | | | | | | | [...] | | | | | | | ([facility]) | | | | | | | [...] | | | | | | | ([facility]) | | | | | | | [...] + + + + | Diabetic neuropathy ([facility]) | 07/24/2017 | + + + | DM type 2 (diabetes mellitus, type 2) ([facility]) | 07/24/2017 | + + + | [...] | | | | | | [place] [address] | | | | | | [phone] | | | | | | | | +--------+---------+ + + + | 12/21/ | Office | | [place], | | | 2017 | Visit | | Karon Pearson | | | | | | MD [address] | | | | | | [place] [address] | | | | | | [phone] | | | | | | | [...] [facility] | [address] | [place] [address] | | + + + + + [...] +------+-------+ + | MEDICARE | MEDICA | [id number] | | | [address] | | | RE | | | | [place] [address] | | | IP-OP | | | | | + +--------+ +------+-------+ + | COMMERCIAL OTHER | COMMER | [id number] | | | | | | CIAL [...] | Self | [birth year] | Work: | [address] | | | al/Fam | | [phone] | [phone] [address] | | | [place] | | | [phone] Home: | [place], [place] | | | | | | | [address] | | | | | | [phone] | | | | | | [phone] | | + +--------+ +--------+ + +
--- OUTSIDE RECORDS SUMMARY | ~2017-11-20 | XMS | Encounter Summary ---
Demographics + + + | Address | [address] | | | [place] [address] | + + + | Home Phone | | + + + | Preferred Language | Unknown | + + + | Marital Status | | + + + | Mu-Ism Affiliation | Unknown | + + + | Race | Unknown | + + + | Ethnic Group | Unknown | + + + Author + + + | Author | [facility] | + + + | Organization | [facility] | + + + | Address | Unknown | + + + | Phone | Unavailable | + + + Support + + + + + | Name | Relationship | Address | Phone | + + + + + | Hannah Alvarez | ECON | [address] | | | | | [place] | | | | | [address] | | + + + + + Care Team Providers + +------+ + | Care Machine Operator Name | Role | Phone [...] | Radiology | Diagnoses | [place], | [facility] [address] | | | | | Multiple | Karon | [address] | | | | | pulmonary | MD [address] | [address] | | | | | nodules | [address] | [place] | | | | | Procedures | [address] | [address] Phone: | | | | | CT chest | [place], | [phone] | | | | | without | [place] [address] | | | | | | contrast | Phone: | | | | | | | [phone] | | | | | | | Fax: | | | | | | | [phone] | | +--------+--------+ + + + + MRI/CAT Scan (Routine) +--------+--------+ + + + + | Status | Reason | Specialty | Diagnoses / | Referred By | Referred To | | | | | Procedures | Contact | Contact | +--------+--------+ + + + + | Closed | | Radiology | Diagnoses | Riley, | [facility] [address] | | | | | Multiple | Karon | [address] | | | | | pulmonary | MD [address] | [address] | | | | | nodules | [address] | [place], [place] | | | | | Procedures | [address] | [address] Phone: | | | | | CT chest | [place], | | | | | without | [place] [address] | | | | | | contrast | Phone: | | | | | | | [phone] | | | | | | | Fax: | | | | | | | [phone] | | +--------+--------+ + + + + Reason for Visit MRI/CAT Scan (Routine) +--------+--------+ + + + + | Status | Reason | Specialty | Diagnoses / | Referred By | Referred To | | | | | Procedures | Contact | Contact | +--------+--------+ + + + + | Closed | | Radiology | Diagnoses | [place], | [facility] | | | | | Multiple | Karon | [address] | | | | | pulmonary | MD [address] | [address] | | | | | nodules | [address] | [place], [place] | | | | | Procedures | [address] | [address] Phone: | | | | | CT chest | [place], | | | | | without | [place] [address] | | | | | | contrast | Phone: | | | | | | | [phone] | | | | | | | Fax: | | | | | | | [phone] | | +--------+--------+ + + + + Encounter Details +--------+ + + + + | Date | Type | Department | Care Team | Description | +--------+ + + + + | 10/12/ | Hospital | [facility] | [place], | Multiple pulmonary | | 2018 | [facility] | Karon Pearson, | nodules | | | | CT [address] | [address] | | | | | [address] | [place] [address] | | | | | [place] [address] | [phone] | | | | | [phone] | | | +--------+ + + + [...] | | | | | | | ([facility]) | | | | | | + [...] | | | | | | | ([facility]) | | | | | | + [...] | | | | | | | ([facility]) | | | | | | + [...] | | | | | | | ([facility]) | | | | | | + [...] [place], | | | | | | [place] [address] | | | | | | [phone] | | | | | | | | +--------+---------+ + + + | 12/21/ | Office | Pulmonology | [place], | | | 2017 | Visit | | Karon Pearson | | | | | | MD [address] | | | | | | [place] [address] | | | | | | [phone] | | | | | | | [...] Pulmonary nodules. Past smoker. Follow-up. COMPARISON: | [facility] | | 10/02/16, 10/14/15. TECHNIQUE: [...] [facility] | [address] | [place] [address] | | + + + + + in this encounter Visit Diagnoses + + | Diagnosis | + + | Multiple pulmonary nodules | + + | Other nonspecific abnormal finding of lung field | + +"
[~2017-11-20 02:56] MED LIST changes: +MIRAPEX0.25 MG PO
--- NOTE | 2017-11-20 06:00 | NUR ---
PT ARRIVED ON STRETCHER. PT ABLE TO STAND AND TRANSFER TO THE BED. PT TOLERATED WELL. PT HAS NG TUBE PRESENT. AT BEDSIDE. WILL CONTINUE TO CLOSELY MONITOR.
[2017-11-20] MEDS ORDERED: ASPIR 8181 MG PO (06:37)
[2017-11-20] MEDS ORDERED: VOLTAREN100 GM TOP (06:39)
--- NOTE | 2017-11-20 06:41 | NUR ---
PT ASSESSMENT COMPLETED. PT HAS ACTIVE BOWEL TONES THROUGHOUT. BOWEL TONES ARE ALSO AUDIBLE WITHOUT STETHOSCOPE. PT STATES LAST BM WAS YESTERDAY. PT ABD DISTENDED AND TENDER TO PALPITATION. PAIN 8/10. GAVE PRN PAIN MEDICATION. PT BREATH SOUNDS CLEAR AND ON RA. PT DENEIS SOB. NS FLUIDS AT 100MLS/HR PER ORDERS. MD WILL BE IN TO SEE PATIENT. PT IS CURRENTLY IN ROOM 130 IN CCU. PT IS A MED/SURG ADMIT AND IS ADMITTED A HOUSE CONV. TO CCU. PT HAS CALL LIGHT IN REACH. EDUCATED TO CALL FOR ASSISTANCE AND TO NOT GET UP WITHOUT A STAFF MEMBERS ASSISTANCE. PT IS NPO AT THIS TIME AND GN TUBE TO LOW-INT. SUCTION. PT IS AGREEABLE TO CURRENT PLAN. WILL CONTINUE TO CLOSELY MONITOR.
--- NOTE | 2017-11-20 07:32 | NUR ---
PT USES CALL LIGHT AND STATES HE IS HAVING INCREASED PAIN. PT VERY VISIBLE UNCOMFORTABLE, RATING HIS PAIN A 15/10. PT CLUTCHING AT HIS ABDOMEN AND MOANING OUT. PT STATES HE HAS HAD TWO PREVIOUS BOWEL OBSTRUCTIONS. NGT TO LEFT NARE SUCTIONING YELLOWISH MATERIAL. DOSE OF DILAUDID GIVEN AT THIS TIME. PT CONTINUES TO WRITH IN BED. PT NAUESOUS. EMESIS BAG AT BEDSIDE. ATTMEPTING TO HELP PATIENT STAY CALM AND DEEP BREATH THROUGH THE PAIN. DR. RODARTE TO BE NOTIFIED.
--- NOTE | 2017-11-20 08:13 | NUR ---
CALLED DR. RODARTE TO UPDATE HIM ON PT'S PAIN. NEW ORDERS REC'D FOR PAIN MEDICATION AND NAUSEA. PT STILL VERY PAINFUL AND CAN BE HEARD FROM OUTSIDE THE ROOM GROANING IN PAIN. MORE PAIN MEDICATION TO BE GIVEN.
--- NOTE | 2017-11-20 08:33 | NUR ---
PAIN MEDICATION GIVEN WELL NAUSEA MEDICATION GIVEN AT THIS TIME. PT NOW RESTING MORE CALMLY, BUT STILL SHOWING SIGNS OF PAIN WHEN HE AWAKENS AND CLUTCHES AT HIS ABDOMEN AND GROANS OUT IN PAIN. NGT DRAINING YELLOWISH/BROWNISH MATERIAL. SP02 98% ON 2 L NC AT THIS TIME. CALL LIGHT WITHIN REACH. CONTINUE TO MONITOR.
--- NOTE | 2017-11-20 09:37 | NUR ---
PATIENT RESTING CALMLY AT THIS TIME. PT SEEMS TO BE RESTING BETTER WITH BETTER CONTROL OF HIS PAIN. NGT PUTTING OUT BROWNISH FOULISH SMELLING LIQUID. SP02 100% ON 2 L NC.
--- NOTE | 2017-11-20 10:39 | NUR ---
PATIENT AWOKEN TO SEE HOW HIS PAIN WAS DOING. PATIENT HAS BEEN SLEEPING AND RESTING AFTER HIS PAIN WAS FINALLY UNDER CONTROL. NG TUBE NOTED TO BE PUTTING OUT AROUND 700 ML OF THE BROWNISH/YELLOWISH FLUID THAT DOES HAVE A FOUL SMELL TO IT. PT STILL NEEDS TO VOID - PATIENT ASKED TO CALL THIS RN WHEN HE FEELS THE NEED TO VOID. SP02 100% ON 2 L NC.
--- NOTE | 2017-11-20 12:03 | NUR ---
PATIENT AWOKEN FOR VITALS AND ASSESSMENT. PT STATES CURRENTLY HE IS PAIN FREE. PT HAS BEEN RESTING WELL. ASSESSMENT COMPLETE. PT HAS NOT DRAINED ALMOST 800 ML OF THE BROWNISH/YELLOW STOMACH CONTENTS. PT HELPED TO STAND TO VOID. PT ALSO GIVEN SWAB FOR MOUTH. LUNGS SOUNDS ARE CLEAR. PT REMAINS ON 2 L NC. AWAITING TO SEE DR. RODARTE FOR FURTHER ORDERS FOR THIS PATIENT. CONTINUE TO MONITOR.
--- NOTE | 2017-11-20 12:11 | NUR ---
PATIENT UP TO VOID AND VOIDS 300 ML. PT NOW SITTING IN CHAIR AND DENIES NEED FOR PAIN MEDICATION. PT MOVING WELL WITH A STANDBY ASSIST. CONTINUE TO MONITOR.
--- NOTE | 2017-11-20 14:18 | NUR ---
DR. RODARTE IN TO SEE PATIENT AROUND 1300. PATIENT SITTING IN CHAIR. PLAN OF CARE DISCUSSED. BOLUS GIVEN OF 1 L LR. IVF CHANGED TO D5 LR @ 125 ML/HR. PT DENIES FURTHER NEEDS. 875 ML BROWNISH/YELLOW LIQUID SUCTIONED FROM NG TUBE. CONTINUE TO MONITOR.
--- NOTE | 2017-11-20 16:26 | NUR ---
Patient arrived at 1615. Stood to use [employer]. 1 PA. call light in reach, gave swabs for mouth care, moisture. no other needs at this time.
[2017-11-20] MEDS ORDERED: IPRATROPIU0.2 MG/1 M INH (16:51)
--- NOTE | 2017-11-20 17:47 | NUR ---
RECIEVED REPORT FROM NICK DURHAM APPROXIMATELY 1545, ALL QUESTIONS ASKED. PATIENT ARRIVED TO MED/SURG FLOOR VIA CHAIR AROUND 1600. VITAL SIGNS TAKEN. PATIENT RESTING COMFORTABLY IN CHAIR, WATCHING TV. DENIES PAIN AT THIS TIME. CALL LIGHT WITHIN REACH. NG TUBE ATTACHED TO INTERMITTENT SUCTIONING, PATIENT APPEARS TO BE TOLERATING WELL. 2L VIA NC. CALL LIGHT WITHIN REACH. POSSESSIONS AND URINAL AT BEDSIDE. IV FLUIDS INFUSING. NO MORE NEEDS AT THIS TIME.
--- NOTE | 2017-11-20 18:29 | NUR ---
PATIENT IN HIS CHAIR WATCHING TV. CALL LIGHT IN REACH. NO OTHER NEEDS AT THIS TIME.
--- NOTE | 2017-11-20 19:25 | NUR ---
RECEIVED REPORT FROM MARVA ADAME. PT SITTING UP IN CHAIR, VISITORS IN ROOM. NG TUBE DRAINING WNL ON LOW INTERMITTENT SUCTION. IVF INFUSING WNL. 2 LITERS OXYGEN VIA NC. NPO. NO REQUESTS AT THIS TIME, CALL LIGHT IN LAP.
--- NOTE | 2017-11-20 20:05 | NUR ---
IN PT ROOM, DISCUSSED PLAN OF CARE WITH PATIENT AND . QUESTIONS ANSWERED. CALL LIGHT IN REACH. NGT TO LOW INT SUCTION, IVF INFUSING WNL. PT ON 2L OXYGEN BY EDWIN.
--- NOTE | 2017-11-20 21:36 | NUR ---
ASSESSMENT COMPLETE. BOWEL TONES HYPOACTIVE. PT DENIES ABD TENDERNESS OR DISTENSION. NG TUBE SUCTION LOW INTERMITTENT, BROWN DRAINAGE. PT DENIES PAIN AT THIS TIME. CALL LIGHT IN REACH, NO REQUESTS AT THIS TIME.
--- NOTE | 2017-11-20 22:16 | NUR ---
IN PT ROOM, NEW BAG IVF INFUSING WNL. PT STANDING AT SIDE OF BED. NO REQUESTS AT THIS TIME. NGT TO LOW INT SUCTION IN PLACE. PT ON ROOM AIR.
--- NOTE | 2017-11-20 23:30 | NUR ---
RESPONDED TO CALL LIGHT. PT COLD, WARM BLANKETS GIVEN. NG TUBE LOW INTERMITTENT SUCTION. IVF INFUSING WNL. CALL LIGHT NEXT TO PT.
--- NOTE | 2017-11-21 01:25 | NUR ---
ASSESSMENT COMPLETE. BOWEL TONES ACTIVE. PT DENIES PAIN IN ABD WITH PALPATION. IVF INFUSING WNL. NG TUBE DRAINING TO LOW INTERMITTENT SUCTION, GREENISH BROWN DRAINAGE. CALL LIGHT NEXT TO PT.
--- NOTE | 2017-11-21 02:31 | NUR ---
IN ROOM TO CHECK ON PT. PT APPEARS TO BE SLEEPING, EYES CLOSED, UNLABORED BREATHING. NG TUBE TO LOW INTERMITTENT SUCTION. CALL LIGHT NEXT TO PT.
--- NOTE | 2017-11-21 04:26 | NUR ---
IN ROOM TO CHECK ON PT. PT AWAKE SITTING AT EDGE OF BED. C.O. RESTLESS LEGS. PT GIVEN MOUTH SWABS PER PT REQUEST. NO FURTHER REQUESTS. CALL LIGHT NEXT TO PT.
--- NOTE | 2017-11-21 05:05 | NUR ---
PT SLEPT ON/ OFF THROUGHOUT SHIFT. ACTIVE BOWEL TONES, NO ABD TENDERNESS ON PALPATION, MILD DISTENTION. NG TUBE DRAINING GREEN/BROWNISH ON LOW INTERMITTENT SUCTION. IVF INFUSING WNL. PT STANDS INDEPENDENTLY TO VOID AT BEDSIDE URINAL. PT ON ROOM AIR, O2 SATURATIONS WNL ON ROOM AIR. ABD X-RAY SCHEDULED FOR THIS MORNING. NPO THROUGHOUT SHIFT. ALERT AND ORIENTED X4 THROUGHOUT SHIFT.
--- NOTE | 2017-11-21 06:49 | NUR ---
IN ROOM TO HANG NEW IV FLUIDS. PT SITTING UP IN BED, AWAKE. IVF INFUSING WNL. NO REQUESTS FROM PT AT THIS TIME. CALL LIGHT NEXT TO PT.
--- NOTE | 2017-11-21 08:01 | NUR ---
BEDSIDE SHIFT REPORT FROM REYMUNDO/HORACE DURHAM. PATIENT SITTING UP IN RECLINER THIS MORNING. NG TUBE TO LIS. NO DOCUMENTATION FOUND ON INCHES/CM EXPOSED ON NG TUBE. UNABLE TO CONFIRM PROPER PLACEMENT. EDUCATED PATIENT TO REPORT ANY ABDOMINAL DISTENTION OR NAUSEA. CANISTER CHANGED ON WALL. PT C/O NOSE BEING RUBBED AND SORE. WILL BRAINSTORM FOR IDEAS TO PREVENT ULCERATION OF NOSTRIL. WHITE BOARD UPDATED BY WENDI DURHAM. PT STANDING IN ROOM NOW PACING IN FRONT OF CHAIR. TELEVISION ON. NO NEEDS AT THIS TIME. C/O RESTLESS LEG FEELING. WILL ASK MD ABOUT ORDERING MIRAPEX.
--- NOTE | 2017-11-21 08:20 | NUR ---
PATIENT SITING UP IN CHAIR. LINENS CHANGED. SET UP BATROOM FOR SHOWER. CALL LIGHT WITHIN REACH. NO OTHER NEEDS AT THIS TIME.
--- NOTE | 2017-11-21 09:01 | NUR ---
PT SET UP FOR SHOWER. WILL DO THIS INDEPENDENTLY. MIRAPEX GIVEN PER TUBE. NO COMPLAINTS OF NAUSEA OR PAIN. NG CLAMPED FOR NEXT HOUR. WILL REATTACH TO LIS AT 1000.
--- NOTE | 2017-11-21 15:17 | NUR ---
PT HAD SMALL BOWEL FOLLOW THROUGH STUDY THIS AFTERNOON. BACK IN ROOM NOW ATTACHED TO LIS VIA NG TUBE. IVF INFUSING.
--- NOTE | 2017-11-21 17:00 | NUR ---
NG TUBE REMOVED BY WENDI DURHAM WITH THIS RN SUPERVISING. ADVANCED TO REGULAR DIET.
--- NOTE | 2017-11-21 18:33 | NUR ---
ABD X-RAY SHOWED NO SBO. BOWEL FOLLOW THROUGH THIS AFTERNOON. GOOD RESULTS. NG TUBE REMOVED. REGULAR DIET. INDEPENDENT IN ROOM. D5LR @ 125. DILAUDID FOR HEADACHE X1.
--- NOTE | 2017-11-21 19:00 | NUR ---
[facility], pt resting in chair with family at bedside. call light in reach. pt appears to be in no distress. pt requests miripex tonight for RLS. Will call dr mar to request this.
--- NOTE | 2017-11-21 20:21 | NUR ---
DR RODARTE CONSULTED REGARDING PT REPORTS OF RESTLESS LEG SYMPTOMS AND NEW PRN ORDER RECEIEVED FOR MIRAPEX -SEE APR.
--- NOTE | 2017-11-21 20:40 | NUR ---
PT MOVED TO ROOM 114 [facility]. PT SITTING UP IN CHAIR, DENIES HAVING ANY CONCERNS OR REQUESTS. ASSESSMENT COMPLETED. HS MEDICATIONS ADMINISTERED. CALL LIGHT IN REACH AND PT PROVIDED WITH FRESH ICE WATER.
--- NOTE | 2017-11-21 21:44 | NUR ---
VITALS AND I&OS DONE AND CHARTED. BEDSIDE TABLE AND CALL LIGHT IN REACH.
--- NOTE | 2017-11-21 22:10 | NUR ---
PT RESTING RECLINED BACK IN CHAIR. EYES CLOSED AND RESPIRATIONS EVEN AND UNLABORED. PT APPEARS TO BE SLEEPING COMFORTABLY. CALL LIGHT AND H20 INREACH.
--- NOTE | 2017-11-22 | NUR ---
pt resting in bed watching tv. pt denies needs and states he is comfortable. call light and h20 inreach.
--- NOTE | 2017-11-22 01:26 | NUR ---
PT RESTING IN BED, CALL LIGHT IN REACH. PT APPEARS TO BE SLEEPING COMFORTABLY. RESPIRATIONS EVEN AND UNLABORED.
--- NOTE | 2017-11-22 02:06 | NUR ---
PT RESTING IN BED, EYES CLSOED AND RESPIRATIONS EVEN AND UNLABORED. PT ALERT TO VOICE. ASSESSMENT COMPLETED. PT DENIES NAUSEA OR PAIN. BT'S ACTIVE X4. CALL LIGHT AND H20 IN REACH.
--- NOTE | 2017-11-22 04:01 | NUR ---
PT RESTING IN BED, EYES CLOSED AND RESPIRATION SEVEN AND UNLABORED. CALL LIGHT IN REACH AND PT APPEARS TO BE SLEEPING COMFORTABLY.
--- NOTE | 2017-11-22 05:15 | NUR ---
PT APPEARED TO SLEEP COMFORTABLY FOR MAJORITY OF NIGHT. PT IS ALERT AND ORIENTED X4. PT TOLORATING PO FLUIDS AND IS VOIDING QS CLEAR YELLOW URINE. PT IS INDEPENDANT IN ROOM. PT DENIES PAIN. BT'S ACTIVE X4. NO BM THIS SHIFT. IV TO LEFT AC HAS LR AT 125ML/HR.
--- NOTE | 2017-11-22 06:06 | NUR ---
VITALS AND I&OS DONE AND CHARTED. FRESH COFFEE GIVEN. BEDSIDE TABLE AND CALL LIGHT IN REACH. PT NEEDS NOTHING ELSE AT THIS TIME.
--- NOTE | 2017-11-22 08:00 | NUR ---
SITTING UP IN CHAIR BREAKFAST ORDERED, STATES NAUSEA IS MUCH IMPROVE, GOOD BTX4. CALL LIGHT IN EASY REACH.
--- NOTE | 2017-11-22 08:31 | NUR ---
PATIENT SITING UP IN CHAIR. SET UP BATHROON FOR SHOWER. SET UP TOOTHBRUSH AND TOOTHPASTE FOR ORAL CARE. ICE WATER GIVEN. CALL LIGHT WITHIN REACH. NO OTHER NEEDS AT THIS TIME.
[2017-11-22] MEDS ORDERED: MIRAPEX0.25 MG PO (09:20)
[2017-11-22] MEDS ORDERED: CALCIUM + VITA1 EAC2 PO (09:27)
[2017-11-22] MEDS ORDERED: STOOL SOFTENER100 MG PO (09:27)
[2017-11-22] MEDS ORDERED: ZYRTEC10 MG PO (09:27)
--- NOTE | 2017-11-22 09:32 | NUR ---
MED REC COMPLETE
--- NOTE | 2017-11-22 10:30 | NUR ---
IN GOOD SPIRITS, DENIES ANY NAUSEA OR ABD PAIN. IVF PATENT. TOLERATED BREAKFAST WELL. SITTING UP IN CHAIR WATCHING TV. DENIES FURTHER NEEDS.
--- NOTE | 2017-11-22 12:08 | NUR ---
ATE 100% OF LUNCH-GRILLED CHEESE SANDWICH, ENSURE SHAKE. PT UP ABOUT ROOM INDEP. DENIES NAUSEA OR ABD PAIN. IVF PATENT. IN GOOD SPIRITS.
--- NOTE | 2017-11-22 14:28 | NUR ---
CALL PLACED TO DR RODARTE AND RECIEVED ORDER FOR ALBUTEROL NEB FOR C/O SOB. PT STATES HE USUALLY TAKES BREO ELLIPTA AND NEBS AT HOME.
--- NOTE | 2017-11-22 15:41 | NUR ---
DR RODARTE IN TO SEE PT.
--- NOTE | 2017-11-22 16:02 | NUR ---
DISCHARGE ORDERS NOTED AND PRINTED. REVIEWED WITH PT. VERBALIZES UNDERSTANDING AND TO SCHEDULE FOLLOWUP APPOINT. IN 6WKS. WILL BE HERE SHORTLY TO [place] HOME. [facility] DC'D INTACT TO [facility].
== END 2017-11-22 16:15 | disposition home or self-care (01) | DRG 390 ==
LOC: ED 02:56 → CCU 02:57 → MS 13:18
PROVIDERS: ADMIT Surgery
DX: K56.699 Other intestinal obstruction unspecified as to partial versus complete obstruction (principal); I10 Essential (primary) hypertension; E11.9 Type 2 diabetes mellitus without complications; J45.909 Unspecified asthma, uncomplicated; G25.81 Restless legs syndrome; E66.9 Obesity, unspecified; Z79.84 Long term (current) use of oral hypoglycemic drugs; Z79.1 Long term (current) use of non-steroidal anti-inflammatories (NSAID); Z79.82 Long term (current) use of aspirin; Z79.51 Long term (current) use of inhaled steroids; Z79.899 Other long term (current) drug therapy; Z88.5 Allergy status to narcotic agent; Z88.2 Allergy status to sulfonamides; Z68.26 Body mass index [BMI] 26.0-26.9, adult
CPT/HCPCS: 36415; 71045; 74018; 74177; 74250; 80053; 81001; 83690; 85025; 94640; 96361; 96374; 96375; 99285; J1170; J1644; J2405; J2550; J7030; J7120; Q9967

== ENCOUNTER 2021-07-15 23:09 | Inpatient (IN) | payer OTHER, MEDICARE ==
[~2021-07-15] VITALS: Ht 170.2 cm; Wt 83.6 kg
[~2021-07-15 23:09] MED LIST changes: +ASPIR 8181 MG PO; +CALCIUM + VITA1 EAC2 PO; +IPRATROPIU0.2 MG/1 M INH; +MOTRIN IB200 MG PO; +STOOL SOFTENER100 MG PO; +TYLENOL325 MG PO; +VOLTAREN100 GM TOP
--- NOTE | 2021-07-16 03:07 | NUR ---
RECEIVED REPORT FROM MARVA BORJAS. TRANSPORTED pt TO MED/SURG. ASSESSMENT DONE. pt DID DRY HEAVE AT ONE POINT, NG TUBE FLUSHED, pt FELT BETTER. BOWEL TONES HYPOACTIVE ON RIGHT SIDE. NG TO LEFT NARE, LIS, BLOODY/BROWN OUTPUT. pt REPORTS BACK PAIN WHICH IMPROVED WITH NEW BED. ABD PAIN IS "OKAY" RIGHT NOW. LR INFUSING PER ORDERS. NO REQUESTS AT THIS TIME. CALL LIGHT WITHIN REACH.
--- NOTE | 2021-07-16 04:09 | NUR ---
CHARGE NURSE INFORMED THIS RN THAT pt WAS WRETCHING AND IN PAIN. PRN PAIN MEDICATION GIVEN (SEE MAR). NG TUBE FLUSHED, OUTPUT IS THICK WITH CHUNKS OF FOOD AND BLOOD. AFTER FLUSH pt REPORTED SOME RELIEF. NO FURTHER REQUESTS AT THIS TIME. CALL LIGHT WITHIN REACH.
--- NOTE | 2021-07-16 04:37 | NUR ---
ROUNDED ON pt. RESTING IN BED WITH EYES CLOSED, WOKE TO VOICE, REPORTS HE IS FEELING "OKAY". CALL LIGHT WITHIN REACH.
--- NOTE | 2021-07-16 05:46 | NUR ---
CALL LIGHT ON. pt REPORTED 8/10 PAIN. PRN PAIN MEDICATION GIVEN (SEE MAR). NG TUBE FLUSHED, pt REPORTED NAUSEA, PRN GIVEN (SEE MAR). pt NOW RESTING MORE COMFORTLY. CALL LIGHT WITHIN REACH.
--- NOTE | 2021-07-16 07:28 | NUR ---
pt REPORTING PAIN, NG TUBE NOT PUTTING MUCH OUT. ADVANCED 5CM. CHEST XRAY TO CONFIRM PLACEMENT PER PROTOCOL. pt PAIN 6/10 PRN GIVEN PER REQUEST. NG TUBE HAS INCREASED OUTPUT. BROWN IN COLOR WITH SEDIMENT. CALL LIGHT WITHIN REACH.
--- NOTE | 2021-07-16 08:57 | NUR ---
RECMily. BEDSIDE REPORT FROM RN, ASSUMED ALL CARE OF PT.
--- NOTE | 2021-07-16 10:00 | NUR ---
DR. RODARTE ON FLOOR, PT. REMAINS WITH ABDOMINAL PAIN, RATES 1-2 WHEN RESTING AND THEN CRAMPING STARTS UP AGAIN AND PAIN BECOMES MOD-SEVERE WITH CRAMPING, NGT OUTPUT >500 LIGHT BROWNISH/GREEN LIQUID SO FAR SINCE ADMIT TO FLOOR , NGT TO LIWS, CXR TO CONFIRM PLACEMENT WAS DONE. HE HAS POSITIVE BS ALL FOUR QUADS. STATES HE HAS HAD SOME NAUSEA OFF AND ON FOR THE LAST MONTH BEFORE. HE HAS HAD SEVERAL ABDOMINAL SURGERIES IN THE PAST AND STATES THAT THIS TIME THE PAIN IS WORST THAN ANY OTHER TIME. GAVE PAIN MED
--- NOTE | 2021-07-16 12:15 | NUR ---
RESTING IN BED, SLEEPING OFF AND ON, IVF PATENT TO PUMP, PRN PAIN MEDS DILAUDID Q 2 AND GAVE TORADOL LAST WITH GOOD RESULTS. NPO X ICE CHIPS. SOME NAUSEA W/O EMESIS. USING A URINAL STANDING AT BEDSIDE
--- NOTE | 2021-07-16 14:30 | NUR ---
RESTING WITH EYES CLOSED RESPIRATIONS EVEN
[2021-07-16] MEDS ORDERED: NASACORT10.8 ML NAS (16:03)
[2021-07-16] MEDS ORDERED: MONTELUKAST SOD10 MG PO (16:04)
--- NOTE | 2021-07-16 16:05 | NUR ---
MED REC COMPLETE
--- NOTE | 2021-07-16 16:48 | NUR ---
ROUNDED ON PT., CHECKED NG TUBING, PATENT TO LIJODI,DARK BROWN/GREEN LIQUID FLUFFY DRAINAGE FROM NGT. OUTPUT 100 ML SO FAR THIS SHIFT, , HAS NOT ASKED FOR PAIN MED SINCE TORADOL. JUST A FEW ICE CHIPS PER MOUTH.
--- NOTE | 2021-07-16 18:31 | NUR ---
PATIENT W MINIMAL ABDOMEN PAIN FOR THE LAST 7-8 HRS, THEN CRAMPING BEGAN AND PAIN CAME BACK, GAVE DILAUDID 0.5 MG IV AND ZOFRAN 4 MG IV FOR NAUSEA, DRY HEAVES. DIAPHORETIC AND A MINUTE OF SHIVERS, AFEBRILE STILL AT 97.2 F. AFTER GIVING THE MEDS, HE IS NO LONGER DIAPHORETIC OR SHIVERING.
--- NOTE | 2021-07-16 18:59 | NUR ---
TCT DR. RODARTE, REPORTED ON THE DAYS NGT OUTPUT AND PAIN & NAUSEA THIS AFTERNOON. PAIN AND NAUSEA HAS SUBSIDED WITH MEDICATIONS. HE IS AGAIN RESTING, REVIEWED HOME MEDS AND HE CAN HAVE HIS ALBUTEROL PRN PER HIS MED LIST. PT. HAS SEVERE SEASONAL ALLERGIES AND HIS WAS CONCERNED. WILL BE IN SOON AND REASSESS PATIENT.
--- NOTE | 2021-07-16 19:10 | NUR ---
REPORT RECEIVED FROM DAY SHIFT RN. PT LYING IN BED DOZING ON AND OFF. ALERT AND ORIENTED. DENIES PAIN OR NAUSEA AT THIS TIME. NGT TO LIWS. IVF INFUSING WNL. PT DENIES NEEDS. WHITE BOARD UPDATED. CALL LIGHT IN REACH.
--- NOTE | 2021-07-16 20:58 | NUR ---
EVENING ASSESSMENT COMPLETE. SCHEDULED MEDS ADMIN PER EMAR. PT REPORTS ABD PAIN 6/10 AND NAUSEA WITH "DRY HEAVES". PRN FOR PAIN AND N/V ADMIN. BOWEL TONES ACTIVE. ABD FIRM AND MILDLY DISTENDED. NGT TO LIWS WITH BROWN DRAINAGE. IVF INFUSING WNL. SCD'S ON. ASSISTED PT TO REPOSITION IN BED. PRN BREATHING TX ADMIN FOR C/O SOB. PT WITH HX OF ASTHMA. NO FURTHER NEEDS AT THIS TIME. CALL LIGHT IN REACH.
--- NOTE | 2021-07-16 23:17 | NUR ---
PT RESTING IN BED WITH EYES CLOSED. HOB ELEVATED. RESPIRATIONS EVEN. CALL LIGHT IN REACH.
--- NOTE | 2021-07-17 02:17 | NUR ---
PT RESTING WITH EYES CLOSED. AWAKENS EASILY. VS AND I&O COMPLETE. PT DENIES PAIN OR NAUSEA AT THIS TIME. NGT TO LIWS WITH BROWNISH GREEN DRAINAGE. BOWEL TONES ACTIVE. ABD DISTENDED. SBA TO SIDE OF BED TO VOID. GAIT STEADY. BACK TO BED. SCD'S IN PLACE. IVF INFUSING WNL. FEW ICE CHIPS PROVIDED. PT DENIES FURTHER NEEDS. CALL LIGHT IN REACH.
--- NOTE | 2021-07-17 04:12 | NUR ---
PT RESTING IN BED WITH EYES CLOSED. RESPIRATIONS EVEN. CALL LIGHT IN REACH.
--- NOTE | 2021-07-17 04:31 | NUR ---
IV PUMP ALARMING. ISSUE RESOLVED. PRN FOR ABD PAIN AND N/V ADMIN. PRN BREATHING TX ALSO GIVE. PT DENIES FURTHER NEEDS.
--- NOTE | 2021-07-17 06:33 | NUR ---
VS AND I&O COMPLETE. PT UP TO SIDE OF BED TO VOID 125 ML YELLOW URINE. BACK TO BED, TREY WELL. PRN FOR 4/10 ABD PAIN ADMIN PER EMAR. PT DENIES NAUSEA AT THIS TIME. NO FURTHER NEEDS. CALL LIGHT IN REACH.
--- NOTE | 2021-07-17 07:34 | NUR ---
LUIS MIGUEL. REPORT FROM NIGHT RN, ASSUMED ALL CARE OF PT. RESTING IN BED, PAIN IS CONTROLLED WITH PRN PAIN MEDS AND NAUSEA AT TIMES, DRY HEAVES. IVF PATENT TO PUMP, SLIGHT EDEMA IN B HANDS AND L ANKLE. STATES IVF DOES THIS TO HIM. WATCHING TV, NGT PATENT TO LIWS, GREENISH/BROWN LIQUID OUTPUT, 200 OUT PER REPORT MANAGER. PT. HAD ALBUTEROL TREATMENTS LAST NIGHT, HX OF SEASONAL ALLERGIES, ASTHMA, COPD, FOLLOWED BY DR. AMANDA GUEVARA.
--- NOTE | 2021-07-17 09:41 | NUR ---
PT. C/O NAUSEA AND ABDOMEN PAIN, GAVE ZOFRAN 8 MG IV AND DILAUDID 0.5 MG IV. RESTING IN BED, NGT TO LIWS CONTINUES. IVF PATENT TO PUMP AT 100 ML/HR.
--- NOTE | 2021-07-17 11:57 | NUR ---
PREPPED FOR SURGERY NOW, ALL PAPERWORK PREPARED, CONSENT SIGNED WITH DR. RODARTE, PT. SKIN PREPPED PER PROTOCOL, PARTIAL REMOVED, NO JEWELRY, PRE VOID, IVF AVAILABLE, TOLD OR TECH ABX WERE COMMENTED PER DR. RODARTE, TRANSPORTED TO OR
--- NOTE | 2021-07-17 14:06 | NUR ---
PATIENT IS IN SURGERY AND HAS BEEN NPO ALL MORNING.
--- NOTE | 2021-07-17 15:16 | NUR ---
DISCONTINUED MIDLINE FROM RIGHT ARM, 26 CM ARM CIRC, IT WAS AN 18 G 10 CM MIDLINE, TIP INTACT, TOLERATED WELL. PREPARE FOR DC HOME
--- NOTE | 2021-07-17 15:41 | NUR ---
07/17/21 1541 Celena Alcantara 1527: PT ARRIVES TO PACU WITH EYES CLOSED, NON AROUSAL WITH VERBAL STIMULATION. PT ON 6 L O2 VIA MASK. NG TUBE UNPLUGGED AND TO MEDIUM WALL SUCTION. 1532: PT AROUSES WITH LIGHT TACTILE AND VERBAL STIMULATION, OPENS EYES AND OBEYS COMMANDS TO TAKE BREATHS.
--- NOTE | 2021-07-17 16:31 | NUR ---
RECD. REPORT FROM CRIB CLERK, PT. RESTING WITH EYES CLOSED, RESPONDS TO LIGHT TOUCH, AT BEDSIDE, S/P ABDOMEN ADAMARIS AND SMALL BOWEL RESECT, DRESSING D & I TO MIDLINE ABDOMEN, SCANT SMALL DRIED BLOOD SPOT AT BOTTOM OF DRESSING, ACTICOAT DRESSING WITH CLEAR COVER. 16 FR CRUZ CATH PATENT TO SD, CLEAR YELLOW URINE.
--- NOTE | 2021-07-17 17:13 | NUR ---
C/O PAIN AND NAUSEA, PT. HAD TORADOL, ZOFRAN, FENTANYL APPROX 3 HOURS AGO IN PACU, ALSO HAD BILATERAL BLOCKS DONE, GAVE DILAUDID 0.5 MG IV FOR PAIN
--- NOTE | 2021-07-17 17:48 | NUR ---
RESTING IN BED EYES CLOSED, RESPIRATIONS EVEN, NGT, NEED ORDER CLARIFICATION FOR SUCTION, VSS, APPEARS COMFORTABLE
--- NOTE | 2021-07-17 18:01 | NUR ---
ORDERS FROM DR. RODARTE TO CONTINUE NGT LIJODI. ANTHONY PATENT, IVF PATENT, RESTING WITH EYES CLOSED.
--- NOTE | 2021-07-17 19:23 | NUR ---
REPORT RECEIVED FROM DAY SHIFT RN. PT LYING IN BED ALERT AND ORIENTED. REPORTS ABD PAIN 12/05. PRN ADMIN PER EMAR. POST OP VS WNL. Sp02 97% ON RA. NGT TO WALL SUCTION WITH GREENISH BROWN DRAINAGE. PT DENIES FURTHER NEEDS. CALL LIGHT IN REACH. WHITE BOARD UPDATED.
--- NOTE | 2021-07-17 20:24 | NUR ---
IV IN LEFT AC WITH APPARENT INFILTRATION. THIS RN AND ANOTHER RN LOOKED FOR NEW IV ACCESS WITH NO SUCCESS. PT BECAME AGITATED, THROWING HIS ARMS UP AND STATING "I'M DONE." RETAIL ANALYTICS MANAGER RN TO FLOOR TO LOOK. 22 G STARTED IN LEFT HAND WITH ONE ATTEMPT. PT CONTINUES TO BE AGITED. ATEMPTED TO PROVIDE EDUCATION REGARDING THE NEED FOR IV ACCESS FOR PAIN MEDICATION AND IVF. PT NOT RECEPTIVE. PT DOZING ON AND OFF. OCCASIONAL MOANS. RATES ABD PAIN 10/10. PRN FOR PAIN ADMINISTERED PER EMAR. BED ALARM FOR SAFETY.
--- NOTE | 2021-07-17 22:00 | NUR ---
EVENING ASSESSMENT COMPLETE. SCHEDULED MEDS ADMIN PER EMAR. PT REPORTS ABD PAIN 09/04. PRN FOR PAIN ADMIN. PT DENIES NAUSEA. ABD DRESSING INTACT WITH SCANT AMOUNT OLD DRAINAGE. ABD FIRM AND DISTENDED. BOWEL TONES HYPOACTIVE. NGT TO WALL SUCTION WITH GREENISH BROWN DRAINAGE. CRUZ PATENT WITH YELLOW URINE. IVF INFUSING WNL. SCD'S IN PLACE. VS WNL. PT DENIES FURTHER NEEDS. CALL LIGHT IN REACH. BED ALARM FOR SAFETY.
--- NOTE | 2021-07-18 00:55 | NUR ---
PT RESTING IN BED WITH EYES CLOSED. RESPIRATIONS EVEN. SpO2 97% ON RA. HR 70'S.
--- NOTE | 2021-07-18 01:56 | NUR ---
PT RESTING WITH EYES CLOSED. AWAKENS EASILY. VS AND I&O OBTAINED. PT REPORTS ABD PAIN 5/10. PRN FOR PAIN ADMIN PER EMAR. IV ABX INFUSING WNL. BOWEL TONES HYPOACTIVE. ABD FIRM AND DISTENDED. NGT WITH DARK GREEN DRAINAGE. CRUZ PATENT. SCD'S IN PLACE. ASSISTED TO REPOSITION IN BED. CALL LIGHT IN REACH.
--- NOTE | 2021-07-18 04:52 | NUR ---
PT RESTING WITH EYES CLOSED. RESPIRATIONS EVEN. CALL LIGHT IN REACH.
--- NOTE | 2021-07-18 06:05 | NUR ---
VS AND I&O COMPLETE. ASSISTED PT TO REPOSITION IN BED. ASSISTED WITH ORAL CARE. NGT PATENT. FLUSHED WITH 40 ML TAP WATER. CRUZ PATENT WITH CLEAR YELLOW URINE. ABD DRESSING UNCHANGED FROM PREVIOUS ASSESSMENT. BOWEL TONES HYPOACTIVE. ABD FIRM AND DISTENDED. PT DENIES NAUSEA. REPORTS ABD PAIN 5/10. PRN FOR PAIN ADMIN PER EMAR. HOB ELEVATED. NO FURTHER NEEDS AT THIS TIME. CALL LIGHT IN REACH. BED ALARM FOR SAFETY.
--- NOTE | 2021-07-18 07:50 | NUR ---
PATIENT UP TO CHAIR, 1PA. PATIENT TOLERATED IT WELL. LINENS CHANGED. WARM BLANKET GIVEN. CALL LIGHT IN REACH. NO FURTHER NEEDS AT THIS TIME.
--- NOTE | 2021-07-18 08:30 | NUR ---
REPORT RECEIVED FROM HIGH SCHOOL SCIENCE TEACHER RN. PT IN BED W/ HIS EYES CLOSED AND APPEARS COMFORTABLE. NGT TO LIS. CALL LIGHT W/IN REACH. WILL CONT TO MONITOR.
--- NOTE | 2021-07-18 09:45 | NUR ---
PT UP TO THE CHAIR. TOLERATING IVF AND MEDICATIONS ORDERED. VSS. SURGICAL SITE W/ INTACT DRESSING. ABDOMEN IS FIRM AND DISTENDED W/ HYPOACTIVE BOWEL TONES. PT DENIES PASSING GAS OF YET. VERBALIZES NEEDS APPROPRIATELY. DENIES PAIN. CALL LIGHT W/IN REACH. WILL CONT TO MONITOR.
--- NOTE | 2021-07-18 09:45 | NUR ---
PATIENT SITTING UP IN CHAIR WATCHING TV, VISITOR IN ROOM. VITALS AND I&O'S CHARTED. CALL LIGHT IN REACH. NO FURTHER NEEDS AT THIS TIME.
--- NOTE | 2021-07-18 10:13 | NUR ---
PT UP AMB IN HALLWAY W/O DIFFICULTY. DENIES PAIN AT THIS TIME. VERBALIZES NEEDS APPROPRIATELY.
--- NOTE | 2021-07-18 11:21 | NUR ---
PT UP VISITING WITH HIS THIS MORNING. ASSISTED BACK TO BED. PT TOLERATING NGT TO LIS. CALL LIGHT WITHIN REACH. WILL CONT TO MONITOR.
--- NOTE | 2021-07-18 12:56 | NUR ---
PT ALERT, ORIENTED AND SITTING IN CHAIR.PT AWOKE TO MY VOICE, SAID HE WOULD LIKE TO HAVE DOLL DRESSER VISIT. INFORMED FR TELLO. PT STATED HE ALSO WAS IN NEED OF RN-HE WANTED TO GET BACK IN BED. MARVA LANDRUM CARED FOR PT. GAVE BLESSING AND WILL FOLLOW
--- NOTE | 2021-07-18 13:00 | NUR ---
Pt w/ c/o abd pain- prn pain medication administered as ordered. Pt repositioned in bed and appears comfortable. Tolerating ivf. VSS. Lombardo in place and draining yellow urine. Call light within reach. Will cont to monitor.
--- NOTE | 2021-07-18 13:19 | NUR ---
At this time Mr. Alvarez is awake and oriented to person/place/time, he answers questions appropriately, he is somewhat painful and has requested pain medications. He plans to return home with his upon discharge. He expresses no concerns with plans to discharge home with his who he states is "much younger than me" and "in good health" Mr. Alvarez feels that his care has been good while here in the hospital and denies questions at this time.
--- NOTE | 2021-07-18 13:33 | NUR ---
PATIENT IN BED RESTING AT THIS TIME. VITALS AND I&O'C CHARTED. PATIENT COMPLAINING OF SOME PAIN, RN AWARE. CALL LIGHT IN REACH. NO FURTHER NEEDS AT THIS TIME.
--- NOTE | 2021-07-18 16:00 | NUR ---
Pt resting in bed w/ his eyes closed and appears comfortable. Call light within reach. Will cont to monitor.
--- NOTE | 2021-07-18 17:18 | NUR ---
PATIENT CALLED TO HAVE SOMEONE COME CHECK DRAINS. THIS TAX APPRAISER IN AND PATIENT POINTED AT NG TUBE AND IV AND SAID THEY NEEDED CHECKED. ALL LOOKS WELL. VITALS AND I&O'S DONE. DESIRE GRAJEDA, RN NOTIFIED. CALL LIGHT IN REACH. WARM WASHCLOTH GIVEN. PATIENT DENIES PAIN. NO FURTHER NEEDS AT THIS TIME.
--- NOTE | 2021-07-18 18:41 | NUR ---
PRN medication administered for c/o mild abdominal discomfort- see emar. Ivf infusing without difficulty. NGT to lis with small amount of output noted this shift. Bowel tones hypoactive. Lombardo patent with clear, yellow urine. VSS. Pt remains NPO at this time. Call light within reach. Will cont to monitor.
--- NOTE | 2021-07-18 19:20 | NUR ---
REPORT RECEIVED FROM DAY SHIFT RN. PT LYING IN BED ALERT AND ORIENTED. PT REPORTS FACE "FEELING HOT." COOL CLOTH AT BEDSIDE. PERSONAL FAN PROVIDED. NGT TO WALL SUCTION WITH BROWN DRAINAGE. IVF INFUSING WNL. SCD'S IN PLACE. PT DENIES FURTHER NEEDS. CALL LIGHT IN REACH. WHITE BOARD UPDATED.
--- NOTE | 2021-07-18 22:19 | NUR ---
PT AMB X 2 LAPS AROUND NURSES STATION WITH SBA. GAIT STEADY. IN BATHROOM FOR PM CARES. BACK TO BED, TREY WELL. NGT BACK TO SUCTION. NEW BAG IVF INFUSING WNL. DENIES FURTHER NEEDS. CALL LIGHT IN REACH.
--- NOTE | 2021-07-18 22:27 | NUR ---
EVENING ASSESSMENT COMPLETE. SCHEDULED MEDS ADMINISTERED PER EMAR. PRN ADMIN FOR ABD PAIN AND NAUSEA. ABD FIRM AND DISTENDED. BOWEL TONES HYPOACTIVE. ABD DRESSING INACT WITH SCANT AMOUNT OLD DRAINAGE. NGT TO LIWS WITH SCANT AMOUNT BROWN DRAINAGE. CRUZ PATENT WITH QS YELLOW URINE. PT CONTINUES TO HAVE FLUSHED FACE. BLOOD SUGAR CHECKED, WNL. IVF INFUSING WNL. SCD'S IN PLACE. NO FURTHER NEEDS. CALL LIGHT IN REACH.
--- NOTE | 2021-07-19 01:00 | NUR ---
WALKED WITH PATIENT AROUND THE NURSE'S STATION X2. PATIENT IS BACK IN BED. NGT BACK ON. PRIMARY RN WAS WITH PATIENT.
--- NOTE | 2021-07-19 01:05 | NUR ---
PT AWAKE IN BED. REPORTS ABD PAIN 5/10. PRN FOR PAIN ADMIN PER EMAR. PRN NEB TX GIVEN FOR C/O COUGH BY RT.
--- NOTE | 2021-07-19 01:30 | NUR ---
pt BACK IN BED AFTER AMBULATING IN HALLWAY WITH GA TALBOT. RATES PAIN 6/10 IN ABDOMEN. PRN PAIN MEDICATION ADMINISTERED. IVF INFUSING WNL. CALL LIGHT IN REACH. LIGHTS OFF IN ROOM.
--- NOTE | 2021-07-19 02:45 | NUR ---
PT RESTING IN BED WITH EYES CLOSED. RESPIRATIONS EVEN. CALL LIGHT IN REACH.
--- NOTE | 2021-07-19 06:26 | NUR ---
VS AND I&O COMPLETE. NGT WITH 225 ML BROWN DRAINAGE. CRUZ PATENT WITH QS YELLOW URINE. ABD DRESSING INTACT WITH SCANT AMOUNT OLD DRAINAGE. ABD FIRM AND DISTENDED. BOWEL TONES ACTIVE. PT DENIES FLATUS. ASSISTED TO REPOSITION IN BED. NO FURTHER NEEDS. CALL LIGHT IN REACH.
--- NOTE | 2021-07-19 07:22 | NUR ---
PT CALL LIGHT ON. PT REQUESTS PAIN MEDICATION. PT REPORTS 5/10 LOWER ABDOMINAL PAIN. SEE MAR FOR MEDICATION GIVEN. PT REPORTS FEELING UNCOMFORTABLE IN BED. STAND BY ASSIST UP TO CHAIR. NG TUBE CONTINUES PUTTING OUT BROWN FLUID. ICE CHIPS PROVIDED PER PT REQUEST FOR COMFORT. REPORT RECEIVED FROM MARVA LOVETT. NO ADDITIONAL REQUESTS OR COMPLAINTS. CALL LIGHT WITHIN REACH.
--- NOTE | 2021-07-19 07:44 | NUR ---
MORNING ASSESSMENT AND MEDICATION DUE. PT REMAINS UP TO CHAIR, REPORTS FEELING MORE COMFORTABLE. PT REPORTS ONGOING 5/10 PAIN IN ABDOMEN, MEDICATION RECENTLY GIVEN. PT ALSO REPORTS A 8/10 SORE THROAT "FROM THIS TUBE." PT USING ICE CHIPS FOR COMFORT. PT DENIES NAUSEA. NG TUBE IN PLACE TO LOW INTERMITTAN SCUTION, ~ 50ML BROWN TRANSLUCENT MUCOID FLUID SINCE EMPITED BY MELTER SUPERVISOR OPEN HEARTH FURNACE. PT REPORTS HE IS PASSING GAS. BOWEL TONES HEARD, OCCATIONALLY TYMPANIC. ABOMDN SOFT AND REMAINS MILDY DISTENDED. PT REPORTS "I DONT' FEEL NEAR BLOATED THIS MORNING." MIDLINE INCISION TO ABDOMEN ACTICOAT IN PLACE, SMALL AMOUNT OF OLD RED DRAINAGE/SHADOWING NOTED, NO NEW DRAINGE SEEN. MOST OF DRAIANGE IS NOTED AT DISTAL END OF DRESSING. HEART TONES REGULAR, LUNG SOUNDS CLEAR. +2 EDEMA NOTED IN BILATERAL FEET. GENERALIZED EDEMA ALSO NOTED TO FORARMS AND HANDS. CRUZ CATHTER DRAINING CLEAR YELLOW URINE, QUANTITY SUFFICIENT. PT WATCHING TV. WARM BLANKETS PROVIDED. AM CARES DONE. NO ADDITIONAL REQUESTS OR COMPLAINTS. CALL LIGHT WITHIN REACH.
--- NOTE | 2021-07-19 09:45 | NUR ---
THIS RN TO ROOM TO CHECK ON PT. PT RESTING IN CHAIR. PT REPORTS 3/10 PAIN IN LOWER ABDOMEN THAT IS WELL CONTROLED. PT DENIES NEED FOR ADDITONAL PAIN MEDICATION AT THIS TIME. NG TUBE DC'D PER PROTOCOL AND MD ORDER. PT ADVISED TO UPDATE NURSING STAFF IF HE BECOMES NAUSEOUS. MOUTH WASH USED. PT UP TO AMBULATE IN ARMENDARIZ X2 LAPS WITH STAND BY ASSIST. PT REPORTS PAIN REMAINS WELL CONTROLED WITH AMBULATION BUT REQUESTS "SOMETHING TO HOLD MY STOMACH IN." DR. RODARTE IN ARMENDARIZ AND GIVES VERBAL ORDERS FOR ABOMDINAL BINDER AND TO REMOVE CRUZ CATEHTER. PT BACK TO ROOM. ABODOMINAL BINDER PLACED. PT REPORTS "YEAH, THAT REALLY HELPS." CRUZ CATHETER DC'D PER PROTOCOL. EDUCATION DONE WITH PT. NO ADDITIONAL REQUESTS OR COMPLAITNS. CALL LIGHT WITHIN REACH. PT REMAINS UP TO CHAIR.
--- NOTE | 2021-07-19 11:07 | NUR ---
THIS RN TO ROOM TO CHECK ON PT. PTS AT BEDSIDE, UPDATED ON PT STATUS AND PLAN OF CARE AND VERBALIZES UNDERSTANDING AND STATES HER QUESTIONS HAVE BEEN ANSWERED. PT DENIES NEED TO VOID AT THIS TIME. DENIES NAUSEA AND REPORTS 3/10 PAIN IN ABDOMEN THAT IS WELL CONTROLED AT THIS TIME. PT DENIES NEED FOR PAIN MEDICATION AT THIS TIME. NO ADDITIONAL REQUESTS OR COMPLAINTS. CALL LIGHT WITHIN REACH. PT REMAINS UP TO CHAIR.
--- NOTE | 2021-07-19 11:35 | NUR ---
PTS TO NURSES STATION REPORTS PT WOULD LIKE TO SHOWER. THIS RN TO ROOM. PT UP TO SHOWER WITH STAND BY ASSIST. IV SALINE LOCKED AND COVERED FOR SHOWER. ABDOMINAL BINDER REMOVED. DRESSING UNCHANGED AT THIS TIME WITH OLD SHADOWING NOTED. PT REPORTS ONGOING 3/10 PAIN, DENIES NEED FOR PAIN MEDICATIONS. PTS ASSISTING PT WITH SHOWER. BOTH PT AND VERBALIZE UNDERSTANDING OF CALL LIGHT.
--- NOTE | 2021-07-19 12:09 | NUR ---
PT FINISHED WITH SHOWER. PT UP TO CHAIR. REPORTS 4/10 PAIN IN ABDOMEN AND REQUESTS PAIN MEDICATION. PT DECLINES ABDOMINAL BINDER AT THIS TIME. SEE MAR FOR MEDICATION GIVEN. PT WAS ABLE TO VOID 125ML AT THIS TIME CLEAR YELLOW URINE. PT DENIES NAUSEA. IV FLUIDS RESTRATED. PT DENIES ADDITIONAL REQEUSTS OR COMPLAINTS. RESTING IN CHAIR WITH EYES CLOSED. PTS AT BEDSIDE. CALL LIGHT WITHIN REACH.
--- NOTE | 2021-07-19 12:38 | NUR ---
PT CALL SUSIETH ON. PT REPORTS HE WOULD LIKE A BREATHING TREATEMENT FOR HIS ASTHMA. LUNG SOUNDS CLEAR. RT CALLED AND TO BEDSIDE FOR BREATHING TX. PT REPORTS PAIN IN ABDOMEN IS NOW 3/10 PT DENIES NEED FOR ADDITIONAL PAIN MEDICATION. NO ADDITIONAL REQUESTS OR COMPLAINTS. CALL LIGHT WITHIN REACH.
--- NOTE | 2021-07-19 13:38 | EKG ---
[facility] [address] [facility] [place] [address] Signed Normal sinus rhythm Normal ECG No previous ECGs available Confirmed by SULMA CAMPOS MD ([id number]) on 07/19/2021 1:38:31 PM Electronically Signed By: SULMA CAMPOS MD 07/19/21 1338 PATIENT NAME: AMY NOE VICTORIA Electrocardiogram DATE OF : 37 PHYSICIAN: SULMA CAMPOS MD REPORT #: [id number] REPORT IS CONFIDENTIAL AND NOT TO BE RELEASED WITHOUT AUTHORIZATION
--- NOTE | 2021-07-19 13:43 | NUR ---
PT IS SITTING IN CHAIR, VISITING WITH HIS . NGT IS DC'D AND FEELING MUCH BETTER. BOTH PT AND WOULD LIKE TO VISIT WITH LITIGATION ATTORNEY ASSOCIATE. INFORMED HIM, HE WILL VISIT. GAVE BLESSING AND WILL FOLLOW
--- NOTE | 2021-07-19 14:12 | NUR ---
AFTERNOON ASSESSMENT DUE. THIS RN TO ROOM. PT RESTING IN BED WITH EYES CLOSED. AWAKENS TO VOICE AND LIGHT TOUCH. PT REPORTS ABOMINAL PAIN AT 3/10 AT THIS TIME, PT DENIES NEED FOR PAIN MEDICATION AT THIS TIME. IV REMAINS WNL, NO S/S OF PHLEBITIS NOTED. PT ORIENTED TO ALL AND ANSWERING QUESTIONS APPROPRIATLY. HEART TONES REMAIN REGULAR, LUNG SOUNDS REMAIN CLEAR. EDEMA TO BILATERAL FEET NOW +1, APPEARS TO BE IMPROVING. GENERALIZED EDEMA TO HANDS UNCHANGED. ABDOMEN REMAINS MODERATLY DISTENDED, SOFT TO TOUCH BUT TENDER. ACTIVE BOWEL TONES NOTED. PT REPORTS HE CONTINUES TO PASS GAS. PT REPORTS MILD NAUSEA THAT "ISN'T THAT BAD." PT DENIES NEED FOR NAUSEA MEDICATIONS. DRESSING TO MIDLINE ABDOMEN REMAINS WELL INTACT WITH NO NEW SHADOWING OR DRAINAGE NOTED. PT ENDCOUGRED TO WALK AFTER HIS NAP. NO ADDITIONAL REQUESTS OR COMPLAINTS. CALL LIGHT WITHIN REACH. BED RAILS UP.
--- NOTE | 2021-07-19 14:35 | NUR ---
PATIENT IN BED RESTING WITH EYES CLOSED. VITALS AND I&O'S CHARTED. CALL LIGHT IN REACH. NO FURTHER NEEDS AT THIS TIME.
--- NOTE | 2021-07-19 14:37 | PATH ---
[facility] [address] [facility] [place], [place] [address] Signed SPECIMEN(S): A PORTION OF SMALL BOWEL SPECIMEN SOURCE: A. PORTION OF SMALL BOWEL CLINICAL HISTORY: Small bowel obstruction. FINAL PATHOLOGIC DIAGNOSIS: Small bowel, segmental resection: - Small-bowel mucosa with no significant pathologic changes. - Surgical margins appear viable. BRP:[facility]:C2NR MICROSCOPIC EXAMINATION: Histologic sections of all submitted blocks are examined by light microscopy. These findings, together with the gross examination, support the pathologic diagnosis. GROSS DESCRIPTION: The specimen, labeled "BL, A," and designated on the requisition "portion of small bowel," is received in formalin and consists of a previously opened portion of small bowel (5.5 cm in length x 4.0 cm in circumference) with pink to red-brown, superficially disrupted serosa (inked blue) and pink-torrez unremarkable mucosal folds. No masses or lesions are grossly identified. The pippa are removed, one bowel margin is inked black, and the opposite bowel margin is inked green. Electric Transfer Operator sections of the margins and bowel wall with superficially disrupted serosa are submitted in cassettes (A1-A3). AC (under the direct supervision of a pathologist) The Gross Description was prepared using a voice recognition system. The report was reviewed for accuracy; however, sound-alike word errors, addition and/or deletions may occur. If there is any question about this report, please contact Client Services. PERFORMING LABORATORY: The technical component was performed by [facility], [address] [place] [id number] (CLIA# [id number]). The professional interpretation was performed by [facility], [facility], [address] [place] [address] (CLIA#: PATIENT NAME: AMY NOE PATHOLOGY DATE OF : 37 REPORT #: [id number] PHYSICIAN: [facility] PCP: JULIETTE GALLEGOS MD REPORT IS CONFIDENTIAL AND NOT TO BE RELEASED WITHOUT AUTHORIZATION [facility] [address] [place] [id number] Signed [id number]). Diagnostician: Karlo Snyder MD Pathologist Electronically Signed 07/19/2021 Copies: ~ PATIENT NAME: AMY NOE PATHOLOGY DATE OF : 37 REPORT #: [id number] PHYSICIAN: [facility] PCP: JULIETTE GALLEGOS MD REPORT IS CONFIDENTIAL AND NOT TO BE RELEASED WITHOUT AUTHORIZATION
--- NOTE | 2021-07-19 15:41 | NUR ---
PT UP IN ARMENDARIZ TO AMBULATE X2 LAPS WITH STAND BY ASSIST. PT BACK TO ROOM, REPORTS FEELING TIRED AND READY TO REST. PT DENIES NAUSEA. REPORTS HE COUGHS UP OCCATIONAL "CLEAR STUFF." PT REPORTS PAIN AT 4/10 AND REQUESTS PAIN MEDICATIONS, NOTED THAT NON OPIOID PAIN MEDICATIONS HAVE BEEN DC'D BY PHARMACY. CALL PLACED TO PHARMACY AND ORDERS RESTRATED. SEE MAR FOR MEDICATION GIVEN. PT RESTING IN BED. NO ADDITIONAL REQUESTS OR COMPLAINTS. CALL LIGHT WITHIN REACH. BED RAILS UP.
--- NOTE | 2021-07-19 16:29 | NUR ---
PT POST OP DAY 2 AFTER LAPAROTOMY. PT UP WITH STAND BY ASSIST AND TO AMBLUATE IN ROOM AND IN ARMENDARIZ X MULTIPLE LAPS. PT ADVANCED TO CLEAR LIQUID DIET, MILD NAUSEA REPORTED. NG TUBE DC'D. CRUZ DC'D, PT VOIDING QUANITTY SUFFICIENT. SHOWER THIS SHIFT. ABDOMEN SOFT, MODERATLY DISTENDED. BOWEL TONES HEARD, PT REPORTS PASSING GAS. MIDLINE INCISION DRESING REMAINS INTACT WITH OLD RED SHADOWING NOTED, NO NEW DRAINAGE. PT TOLERATING ROOM AIR. ABDOMINAL BINDER OFFERED AND USED. PRN PAIN MEDICATIONS GIVEN FOR LOWER ABDOMINAL PAIN. PT USES CALL LIGHT AND MAKES NEEDS KNOWN.
--- NOTE | 2021-07-19 17:30 | NUR ---
THIS RN TO ROOM TO CHECK ON PT. PT RESTING IN BED. PT REPORTS 3/10 PAIN IN LOWER ABDOMEN. CONTINUES TO DECLINE ABDOMINAL BINDER. PT DENIES NEED FOR ADDITIONAL PAIN MEDICATIONS. PT UPDATED REGARDING CLEAR LIQUID DIET. OPTIONS OFFERED. PT AGREES TO WATER AND JUICE, PROVIDED. PT ENCORUAGED TO TAKE SLOW SIPS. PT DENIES NASUEA AT THIS TIME. PT VOIDING WELL, ADDITIONAL 225ML CLEAR YELLOW URINE NOTED IN URINAL. PT REPORTS HE PLANS TO AMBULATE MORE THIS EVENING. CALL PLACED TO DR. RODARTE FOR UPDATE AND REGARING PAIN MEDICATION OPTIONS, NO ANSWER AT THIS TIME. AWAITING CALL BACK. NO ADDITIONAL NEEDS AT THIS TIME. CALL LIGHT WIHTIN REACH. BED RAILS UP. BED ALARM ON.
--- NOTE | 2021-07-19 17:56 | NUR ---
PT UP TO AMBULATE X2 LAPS IN ARMENDARIZ WITH STAND BY ASSIST. PT BACK TO ROOM AND SETTLED INTO BED. PT CONTINUES TO DENY NAUSEA AND REPORT 3/10 PAIN IN LOWER ABDOMEN. NO ADDITIONAL REQUESTS OR COMPLAINTS. CALL LIGHT ALISHA GARCIA. BED RAILS UP.
--- NOTE | 2021-07-19 17:59 | NUR ---
Pt walked in hallway, 3 laps with this RN. Pt tolerates well and denies pain medications at this time. IVF infusing WNL. Pt tolerating clear liquids at this time. States no needs, call light in reach
--- NOTE | 2021-07-19 19:20 | NUR ---
RECEIVED REPORT FROM MARVA FARAH. pt RESTING IN BED. REQUESTED A NEB TREATMENT. RT CALLED. NO FURTHER REQUESTS AT THIS TIME. CALL LIGHT WITHIN REACH.
--- NOTE | 2021-07-19 19:45 | NUR ---
NEB TREATMENT COMPLETED, pt REPORTED HE FEELS BETTER AT THIS TIME. NO REQUESTS. CALL LIGHT WITHIN REACH.
--- NOTE | 2021-07-19 20:44 | NUR ---
ASSISTED PRIMARY RN ONELIA. V/S AND I&O'S COMPLETED. ICE WATER REFILLED. OUT AWAY DINNER TRAY. DIRECTOR AGENCY & STRATEGIC PARTNERSHIPS GARBAGE AND UPDATED WHITE BOARD. RN WAS WITH PATIENT WHEN THIS HEAD OF GEOGRAPHY LEFT THE ROOM.
--- NOTE | 2021-07-19 20:55 | NUR ---
IN TO DO ASSESSMENT. pt HAD URINATED IN URINAL INDEPENDENTLY. SITTING ON SIDE OF BED WITH FEET ON THE FLOOR. REPORTED "MY FEET ARE BURNING AND HAVING THEM ON A COLD FLOOR HELPS" BURNING FROM DIABETES PER pt. PATIENT NERVOUS ABOUT PAIN, PRN GIVEN (SEE MAR). DISCUSSED PAIN MANAGEMENT AT LENGTH, pt CURRENTLY AT 05/05. VITALS AND I&O RECORDED. ASSESSMENT DONE. SOME EDEMA IN FEET AND HANDS. pt REPORTS THAT HIS ABD FEELS SOFTER THAN IT HAS, PASSING GAS. BOWEL TONES ACTIVE. pt SETTLED IN BED. PROVIDED FRESH WATER AND ICE. NO FURTHER REQUESTS AT THIS TIME. WILL CALL WHEN HE IS READY TO WALK TO NIGHT. CALL LIGHT WITHIN REACH.
--- NOTE | 2021-07-19 22:08 | NUR ---
ROUNDED ON pt. RESTING IN BED WITH EYES CLOSED, RESPIRATIONS REGULAR AND UNLABORED RATE 16. CALL LIGHT WITHIN REACH.
--- NOTE | 2021-07-19 23:20 | NUR ---
ROUNDED ON pt. RESTING IN BED WITH EYES CLOSED, HAS REPOSITIONED SELF SINCE LAST ROUND. RESPIRATIONS REGULAR AND UNLABORED. CALL LIGHT WITHIN REACH.
--- NOTE | 2021-07-19 23:50 | NUR ---
CALL LIGHT ANSWERED. SBA PATIENT WAS UP TO USE THE BATHROOM USING WALKER. PATIENT IS BACK IN BED. GREEN GOWN CHANGED DUE TO NOTICED PHLEGM SPOT ON CHEST AREA. PATIENT ASKED FOR PAIN MEDICATION. PRIMARY RN NOTIFIED. SCD'S BACK ON. PATIENT IS HARD OF HEARING.
--- NOTE | 2021-07-20 01:10 | NUR ---
ROUNDED ON pt. RESTING IN BED WITH EYES CLOSED, RESPIRATIONS REGULAR AND UNLABORED. CALL LIGHT WITHIN REACH.
--- NOTE | 2021-07-20 02:55 | NUR ---
CALL LIGHT ON pt REQUESTED PRN PAIN MED FOR 5/10 PAIN. SEE MAR. ASSESSMENT DONE. NO CHANGES. pt REPORTS PASSING GAS SINCE LAST ASSESSMENT. OFFERED TO ASSIST WITH WALK pt DECLINES AT THIS TIME. SITTING ON THE SIDE OF THE BED. CALL LIGHT WITHIN REACH.
--- NOTE | 2021-07-20 04:00 | NUR ---
ROUNDED ON pt. RESTING IN BED WITH EYES CLOSED, RESPIRATIONS REGULAR AND UNLABORED. CALL LIGHT WITHIN REACH.
--- NOTE | 2021-07-20 06:40 | NUR ---
IN TO DO VITALS AND I&O. pt AWAKE IN BED. REPORTED NAUSEA, A COUPLE DRY HEAVES, GAVE PRN NAUSEA MED (SEE MAR). pt REPORTS "I ALWAYS HAVE PAIN, BUT IT'S FINE RIGHT NOW" DISCUSSED PAIN MANAGEMENT. CALL LIGHT WITHIN REACH.
--- NOTE | 2021-07-20 07:55 | NUR ---
REPORT RECEIVED. PT IN BED REPORTING NAUSEA. 4MG ZOFRAN ADMISNTERED. LR INFUSING AT 100ML/HR. PT REPORTS PAIN 4/10 TOLERABLE. IV SITE ASSESSED AND WNL. CALL LIGHT AND PERSONAL ITEMS WITHIN REACH.
--- NOTE | 2021-07-20 09:14 | NUR ---
PT IS RESTING. VITALS AND I&O CHARTED. CALL LIGHT WITHIN REACH NO FURTHER TASKS AT THIS TIME
--- NOTE | 2021-07-20 09:34 | NUR ---
ASSESSMENT COMPLETED. PT WITH 22G HAND IV. DR RODARTE CALLED TO CHANGE PHENERGAN. TELEPHONE ORDER RECIEVED TO PLACE ORDER FOR 25MG PO Q6P. READ BACK DONE FOR VERIFICATION. PT THEN ADMINSTERED PHENERGAN FOR INCREASED NAUSEA AFTER ZOFRAN. PT REPROTS PAIN STILL 4/10. PT REPORTS INCREASE IN ABDOMEN DISTENTION. BOWEL TONES ARE ACTIVE. PT REPORTS HE IS STILL PASSING FLATUS THROUGHOUT THE NIGHT. NO BM YET.
--- NOTE | 2021-07-20 09:55 | NUR ---
ROUNDED ON PT TO REASSESS NAUSEA. PT FOUND SLEEPING IN BED. AT BEDSIDE AND PROVIDED UPDATE. ALL QUESTIONS ANSWERED.
--- NOTE | 2021-07-20 10:59 | NUR ---
PT REPORTING 5-6/10 PAIN IN ABDOMEN WGHILE COUGHING. 1 TAB PERCOCET ADMSITNERED. OFFERED ABDOMINAL BINDER BUT PT REPORTS IT WAS HURTING WHILE EEARIGN IT YESTERDAY. PT REQUESTS NEB TREATMENT. RT CALLED. PLAN FOR WALK AFTER PAIN MEDICATION IS EFFECTIVE.
--- NOTE | 2021-07-20 11:00 | NUR ---
Spoke with pts . Pt sleeping. She denies needs. States she is calling [facility] as they are awaiting a new neb tubing and parts to renewed from Dr. Gallego. Let her know we can send her with some on dc. She states pt is over active and has been cautioned by Dr. Gallego to slow down. She again states they really don't need anything on dc.
--- NOTE | 2021-07-20 11:55 | NUR ---
PT REPORTING PAIN 5/10 ONE HOUR AFTER PERCOCET ADMINSTERED. 1 MORE TAB GIVEN. PT NOW PLANNING TO AMBULATE HALLS WITH .
--- NOTE | 2021-07-20 12:28 | NUR ---
PT AMBULATED 4 LAPS IN ARMENDARIZ.
--- NOTE | 2021-07-20 14:32 | NUR ---
ROUNDED TO REASSESS PAIN. PT IN BED SLEEPING. RESPIRATIONS EQUAL AND NONLABORED. WILL LET PT REST AT THIS TIME.
--- NOTE | 2021-07-20 14:52 | NUR ---
PT RESTING, IN CHAIR NAPPING. BOTH AWOKE TO MY VOICE. PT WAS JUST GIVEN PAIN MEDS, BUT WOULD LIKE AVIATION PROGRAM MANAGER TO STOP BY. INFORMED FR SALEH. WILL FOLLOW
--- NOTE | 2021-07-20 15:38 | NUR ---
ASSESSMENT COMPLETED. PT REPORTS FEELING MUCH BETTER THIS EVENING. REPORTS PAIN IS MINIMAL AND DISTENTION HAS DECREASED. NO NAUSEA PRESENT. PT DID EAT 20% ON LUNCH AND HAD JELLO AT 1400. TOLERATED BOTH WELL. MIDLINE WITH NO CHANGE. NO OTHER CHANGES. CALL LIGHT IN REACH
--- NOTE | 2021-07-20 17:26 | NUR ---
PT SITTING AT EDGE OF BED EATING CLEAR LIQ TRAY. PT DENIES NAUSEA OR PAIN AT THIS TIME. TOLERATING WELL DINNER WELL. FLUIDS INFUSING WNL.
--- NOTE | 2021-07-20 19:32 | NUR ---
REPORT FROM DAY TAKEN. PT IS AWAKE AND ALERT , RESTING IN HIS ROOM. STATES HE FEELS BETTER THIS EVENING, PASSING GAS, BURPING, RATES HIS PAIN 3/10. SPLINTING TO COUGH. CALL LIGHT IN REACH. NO PAIN MEDS REQUIRED. NO FURTHER NEEDS.
--- NOTE | 2021-07-20 20:05 | NUR ---
PT STOOD AT [facility] TO VOID . ASSISTED BACK TO BED WITH PILLOW UNDER KNEES. DENIES NEED FOR PAIN MEDS. CALL LIGHT IN REACH. WATER AT THE BEDSIDE.
--- NOTE | 2021-07-20 22:00 | NUR ---
PT WAS COUGHING , SPLINTING WITH PILLOW. RATED HIS PAIN 5/10 AND WANTED A NORCO. HE STATED IBUPROFEN DOES NOT WORK WELL FOR HIM. PT MEDICATED WITH NORCO 7.5 MG PO X1 DOSE. PT KNOWS TO CALL IF THIS IS NOT EFFFECTIVE FORE PAIN.
--- NOTE | 2021-07-20 22:45 | NUR ---
PT APPEARS TO BE SLEEPING COMFORTABLY.DID NOT AWAKEN. CALL LIGHT I REACH.
--- NOTE | 2021-07-21 | NUR ---
PT STOOD AT BEDSIDE TO VOID. 200 MLS CLEAR YELLOW URINE . PT TOLERATED THIS WELL. BACK IN BED . CALL LIGHT IN REACH.
--- NOTE | 2021-07-21 02:10 | NUR ---
STATUS CHECK, PT SLEEPING. CALL LIGHT IN REACH. URINAL AT BEDSIDE.
--- NOTE | 2021-07-21 06:12 | NUR ---
sUMMARY NOTE: PT HAS HAD PAIN IN ABD HE RATED 5/10 . WAS GIVCEN NORCO X1 DOSE WITH RELIEF OF PAIN.HE IS USING A PILLOW TO SPLINT HIS ABDOMEN WHEN COUGHING. PT DOES STAND AT BEDSIDE TO URINATE. HE HAS ACTIVE BOWEL TONES, PASSING GAS, NO BM THIS SHIFT. VITAL SIGNS ARE STABLE. AFEBRILE.
--- NOTE | 2021-07-21 07:30 | NUR ---
REPORT RECEIVED FROM NIGHT RN - ELISA. PT AROUSABLE IN BED FOR BED SIDE REPORT. REQUESTS PAIN MEDS. CALL LIGHT IN REACH.
--- NOTE | 2021-07-21 08:30 | NUR ---
RN IN ROOM TO ADMINISTER MORNING MEDICATIONS WITH STUDENT NURSE. PT UP IN CHAIR WORKING ON BREAKFAST OF LIQUIDS. PT RATES PAIN 5/10, PRN PROVIDED FOR THIS. ENCOURAGED PT TO TAKE MOTRIN AND NORCO. PT AGREABLE. ASSESSMENT COMPLETE - BOWEL TONES ACTIVE, MIDLINE INCICION DRESSING C/D/I. PT DENIES NAUSEA. UPPER AND BILATERAL EDEMA NOTED, 1+ IN LE TO KNEE. IV FLUIDS STILL RUNNING AT 110ML/H. WILL CONTINUE TO MONITOR I/O. ENCOURAGED AMBULATION TODAY. PT AGREES. CALL LIGHT IN REACH.
--- NOTE | 2021-07-21 09:30 | NUR ---
PT AMBULATING IN HALLWAY WITH .
--- NOTE | 2021-07-21 10:55 | NUR ---
STUDENT NURSE IN ROOM TO OBTAIN VS AND I/O - PT JUST FINISHING AMBULATION IN HALLWAY AND GETTING CHAIR. PT REPORTS PAIN HAS IMPROVED SINCE PRNS ADMINISTERED. UPPER AND LOWER EXTREMETY EDEMA NOTED TO BE IMPROVED SINCE AMBULATION. AT BEDSIDE. CALL LIGHT IN REACH. DENIES FURTHER NEEDS.
--- NOTE | 2021-07-21 11:00 | NUR ---
Spopke with pt, denies needs. Tired of hospital stay. Plans on dc to home when cleared medically.
--- NOTE | 2021-07-21 12:15 | NUR ---
RN IN ROOM TO ROUND ON PT. PT SITTING UP IN CHAIR WATCHING TV UPON ENTRY. PT REPORTS PAIN 4/10 - REQUESTS PRN. 1 TAB NORCO ADMINISTERED, TITRATING UP TO MAX DOSE OF 2 TABS q6. PT DENIES FURTHER NEEDS. CALL LIGHT IN REACH.
--- NOTE | 2021-07-21 12:33 | NUR ---
PT ASLEEP IN CHAIR, DID NOT DISTURB. WILL HAVE HOIST MECHANIC VISIT
--- NOTE | 2021-07-21 12:42 | NUR ---
1+ edema of extremities gone as of 1245. Pt awake, alert, ambulating w assistance.
--- NOTE | 2021-07-21 12:43 | NUR ---
PT REPORTING SLIGHT NAUSEA AFTER LUNCH. 4MG ZOFRAN ADMISNTERED. NEW LR BAG HUNG. PT DENIES FURTHER NEEDS. CALL LIGHT IN REACH. PT UP IN CHAIR.
--- NOTE | 2021-07-21 13:25 | NUR ---
RN IN ROOM TO ROUND ON PT. PT REPORTS NAUSEA HAS SUBSIDED. ENCOURAGED AMBULATION IN HALLWAY TO HELP MOVE BOWELS. PT AGREES. AMBULATING WITH STUDENT NURSE.
--- NOTE | 2021-07-21 14:06 | NUR ---
RN IN ROOM WITH STUDENT NURSE TO ASSESS PT. PT SITTING IN CHAIR AFTER AMBULATING IN HALLWAY. ASSESSMENT UNCHANGED - ABD DISTENDED BUT SOFT, ACTIVE BOWEL TONES, PASSED GAS WITH AMBULATION. SOME NAUSEA HAD WITH LUNCH - RESOLVED. DRESSING C/D/I. IV SITE TOLERATING FLUIDS WITHOUT DIFFICULTY. CALL LIGHT IN REACH.
--- NOTE | 2021-07-21 15:21 | NUR ---
RN ROUNDING ON PT - ASLEEP IN CHAIR WITH FEET ELEVATED - RR EVEN AND UNLABORED. CALL LIGHT IN REACH.
--- NOTE | 2021-07-21 16:23 | NUR ---
PT USES CALL LIGHT TO REQUEST URINAL BE EMPTIED. CLEAR YELLOW URINE NOTED. PT IN CHAIR WITH BLANKET. DENIES NEEDS AT THIS TIME. CALL LIGHT IN REACH.
--- NOTE | 2021-07-21 17:30 | NUR ---
PATIENT WALKED SIX LAPS AROUND MED SURG.
--- NOTE | 2021-07-21 17:48 | NUR ---
RN IN ROOM TO ROUND ON PT. PT RESTING IN CHAIR UPON ENTRY. URINAL EMPTIED OF 300ML CLEAR YELLOW URINE. PT REQUESTS PUDDING CUP - OK WITH MD HE WILL BE ADVANCING TO FULL LIQUIDS TOMORROW WITH BREAKFAST. PT REQUESTS PRN PAIN MEDS FOR 4/10 ABD PAIN. PRN MOTRIN ADMINISTERED - PT EDUCATED MD WOULD LIKE TO WEAN OF NORCO IF POSSIBLE R/T BOWEL MOVEMENT. CALL LIGHT IN REACH, NO OTHER NEEDS NOTED AT THIS TIME.
--- NOTE | 2021-07-21 18:33 | NUR ---
PT UP AMBULATING IN HALLWAY. STATES HE HAS MILD NAUSEA AFTER TRYING PUDDING. ENCOURAGED TO TAKE EATING SLOW.
--- NOTE | 2021-07-21 19:15 | NUR ---
REPORT RECEIVED FROM ANAHY. PT IS AWAKE AND ALERT. HE REPORTS HAVING A GOOD DAY, BUT NO BM YET. IV FLUSHED. PT STATES NO NEEDS AT THIS TIME. CALL LIGHT IN REACH.
--- NOTE | 2021-07-21 20:15 | NUR ---
PT VOIDED STANDING AT BEDSIDE. URINE IS LIGHT CLEAR YELLOW. STATES HIS PAIN IS 5/10 AND REQUESTED A NORCO. EXPLAINED THE MD WOULD PREFER PT USE MOTRIN. PT WILL ALTERNATE MOTRIN WITH NORCO. PT IS GIVEN 1 NORCO PO FOR PAIN.
--- NOTE | 2021-07-22 00:05 | NUR ---
PT APPEARS TO BE SLEEPING QUIETLY. DID NOT AWAKEN HIM. CALL LIGHT IN REACH.
--- NOTE | 2021-07-22 03:11 | NUR ---
PT CALLED ASKING FOR A NEB TRT, CALLED [facility]
--- NOTE | 2021-07-22 07:30 | NUR ---
REPORT RECEIVED FROM NIGHT RN ELISA - PT RESTING IN BED WITH EYES CLOSED, RR EVEN AND UNLABORED. CALL LIGHT IN REACH.
--- NOTE | 2021-07-22 09:12 | NUR ---
RN IN ROOM TO ADMINISTER SCHEDULED MEDICATIONS. PT STATES HE IS HAVING A "BAD MORNING" - INCREASED PAIN (08/05) WITH "FEELING FEVERISH" - TEMP 99.1 AUXILLARY (PT DRINKING HOT TEA). TYLENOL AND MOTRIN ADMINISTERED. ENCOURAGED AMBULATION. OTHER VS STABLE. BOWEL TONES ACTIVE X 4. IV SITE TOLERATING FLUIDS WITHOUT DIFFICULTY. PT RESTING IN BED. STATES HE WANT TO TAKE A SHOWER LATER. CALL LIGHT IN REACH.
--- NOTE | 2021-07-22 09:31 | NUR ---
MD NOTIFIED OF ABNORMAL HR NOTED ON AM ASSESSMENT. - NEW ORDERS TO BE ENTERED BY HIM. WILL CONTINUE TO MONITOR.
--- NOTE | 2021-07-22 10:43 | NUR ---
Pt cont. to plan for dc to home when cleared medically.
--- NOTE | 2021-07-22 10:44 | NUR ---
rn rounding on pt - pt in shower with member of congress and studend nurse assistance. pt feels "better" - non feverish. pain slightly improved. return call placed to Dr. Douglas to clarify if he wanted me to enter orders from previous conversation - no answer.
--- NOTE | 2021-07-22 10:59 | NUR ---
LEFT MESSAGE WITH OR CHARGE TO CLARIFY DR. RODARTE ORDERS FOR PT.
--- NOTE | 2021-07-22 11:11 | NUR ---
PT ALERT, ORIENTED AND RESTING WITH TV ON. PT DID NOT SLEEP WELL LAST NIGHT, AND WOKE TO PAIN. PAIN HAS DEMINISHED SOME, WOULD LIKE SHOWER THIS AM. DECLINED VISIT FROM TODAY. GAVE BLESSING AND WILL FOLLOW NEEDED
--- NOTE | 2021-07-22 13:24 | NUR ---
RN IN ROOM TO ADMINISTER PAIN MEDS PER PT REQUEST. STATES PAIN 4/10 AT INCISION SITE. IN BED RESTING WATCHING TV. CALL LIGHT IN REACH.
--- NOTE | 2021-07-22 15:00 | NUR ---
RN IN ROOM TO ASSESS PT - PT RESTING IN BED AWAKE UPON ENTERING. PT NOTED TO HAVE DECREASED FLUID INTAKE, HOWEVER HIS URINE OUTPUT IS INCREASING. PAIN WELL CONTROLLED CURRENTLY - BOWEL SOUNDS ACTIVE, ABD SOFT AND TENDER. ENCOURAGED PT TO AMBULATE.
--- NOTE | 2021-07-22 16:37 | NUR ---
rn in room to round on pt. pt resting in bed watching tv. requests motrin prn for 3/10 pain at surgical site - administered. pt up to ambulate in hallway.
--- NOTE | 2021-07-22 17:17 | NUR ---
PATIENT WALKED 10 LAPS AROUND MED SURG.
--- NOTE | 2021-07-22 18:13 | NUR ---
RN IN ROOM TO ROUND ON PT - REQUESTS PRN NAUSEA MEDICATION FOR MILD NAUSEA. STATES PAIN IS "OK" AT 10. PT PREVIOUSLY AMBULATED 10 LARGE LAPS IN HALLWAY. PT DENIES FURTHER NEEDS AT THIS TIME. CALL LIGHT IN REACH.
--- NOTE | 2021-07-22 19:44 | NUR ---
RECEIVED REPORT FROM DAY SHIFT RN. PATIENT IS RESTING IN BED. MD AT BEDSIDE. NO NEEDS NOTED. CALL LIGHT IN REACH.
--- NOTE | 2021-07-22 20:40 | NUR ---
PT AMBULATING IN THE ARMENDARIZ INDEPENDENTLY. HE HAS WALKED SEVERAL LAPS AROUND THE RN STATION WITH IV POLE. PT DENIES NEEDS AT THIS TIME.
--- NOTE | 2021-07-22 21:05 | NUR ---
IN TO GET VITALS, FRESH ICE WATER GIVEN, NO FURTHER NEEDS AT THSI TIME
--- NOTE | 2021-07-22 21:25 | NUR ---
PATIENT ASSESMENT COMPLETED. PATIENTS VITALS TAKEN AND RECORDED BY BULL GANG SUPERVISOR. INTAKE AND OUTPUT RECORDED. PATIENT RATES PAIN AT A 3/10, PRN PAIN MEDICATION GIVEN PER ORDER. PATIENT REPORTS NAUSEA, PRN NAUSEA GIVEN PER ORDER. PATIENTS SCHEDULED PM MEDICATIONS GIVEN PER ORDER. IV INFUSING PER ORDER. DRESSING MIDLINE ABD C/D/I AND OLD DRAINAGE NOTED. PATIENTS ABD IS MILD DISTENDED AND SOFT. PATIENT HAS ACTIVE BOWEL TONES. PATIENT DENIES ANY FURTHER NEEDS CALL LIGHT IN REACH.
--- NOTE | 2021-07-23 | NUR ---
PATIENT IS RESTING IN BED WITH EYES CLOSED, RR 16. CALL LIGHT IN REACH.
--- NOTE | 2021-07-23 01:43 | NUR ---
PATIENT IS RESTING IN BED WITH EYES CLOSED, RR16. URINAL EMPTIED. CALL LIGHT IN REACH.
--- NOTE | 2021-07-23 02:48 | NUR ---
PATIENT IS RESTING IN BED WITH EYES CLSOED, RR 16. CALL LIGHT IN REACH.
--- NOTE | 2021-07-23 04:33 | NUR ---
PATIENT IS RESTING IN BED WITH EYS CLSOED, RR 16. URINAL EMPTIED. CALL LIGHT IN REACH.
--- NOTE | 2021-07-23 06:33 | NUR ---
PATIENTS VITALS TAKEN AND RECORDED. INTAKE AND OUTPUT RECORDED. PATIENT DENIES ANY PAIN. PATIENT IS IV INFUSING PER ORDER. PATIENT DENIES ANY NAUSEA. PATIENT DENIES ANY FURHTER NEEDS. CALL LIGHT IN REACH. FRESH ICE WATER PROVIDED.
--- NOTE | 2021-07-23 07:22 | NUR ---
THIS RN RECEIVED SHIFT REPORT FROM MARVA JOHNSON. PATIENT IS RESTING QUIETLY IN BED, EYES CLOSED, RESPIRATIONS ARE REGULAR AND EVEN, AND CALL LIGHT IS IN REACH. PATIENT HAS NO NURSING CARE NEEDS AT THIS TIME.
--- NOTE | 2021-07-23 08:00 | NUR ---
PATIENT UP INDEPENDENTLY AMBULATING AROUND ROOM. PATIENT COMPLAINED OF HAVING SOME BACK PAIN, RN NOTIFIED. LINENS CHANGED. CALL LIGHT IN REACH. NO FURTHER NEEDS AT THIS TIME.
--- NOTE | 2021-07-23 08:39 | NUR ---
PATIENT CALLED HAVING / ABD "ACHE" PER PATIENT. 600MG MOTRIN GIVEN PO WITH AM MEDS. PATIENT SITTING UP IN THE BEDSIDE ARMCHAIR WATCHING TV. CALL LIGHT IS IN REACH AND AM ASSESSMENT COMPLETE. PATIENT GIVEN A WARM BLANKET TO COVER HIS LEGS. PATIENT DENIES ANY OTHER CARE NEEDS AT THIS TIME.
--- NOTE | 2021-07-23 09:19 | NUR ---
PATIENT'S REQUESTED TO SPEAK WITH THIS RN ABOUT ADVANCING PATIENT'S DIET. THIS RN INFORMED PATIENT AND HIS SPOUSE THAT 'S LAST NOTE FROM LAST NIGHT SAID THAT HE WAS NOT ADVANCING PATIENT'S DIET AT THIS TIME, AWAITING BOWEL FUNCTION TO IMPROVE SOME MORE. PATIENT AND VERBALIZED UNDERSTANDING. CALL LIGHT IN REACH. PATIENT HAS NO OTHER NEEDS AT THIS TIME.
--- NOTE | 2021-07-23 09:36 | NUR ---
INFORMED OF PATIENT'S REQUEST TO EAT REGULAR FOOD. SAID WE CAN ADVANCE PATIENT TO FULL LIGQUID DIET FOR A MEAL AND SEE HOW HE DOES AND PROGRESS FROM THERE. PATIENT AND HIS SPOUSE INFORMED.
--- NOTE | 2021-07-23 09:42 | NUR ---
IN TO SEE PATIENT AND DISCUSSED HIS DIET PLAN WITH PATIENT AND HIS SPOUSE. THIS RN GAVE PATIENT SOME PUDDING AND MILK TO TRY ALONG WITH THE CLEAR LIQUID TRAY PATIENT ALREADY HAD. THIS RN ASKED IF THE IV FLUIDS WERE GOING TO STAY THE SAME RATE PATIENT IS GETTING SOME PUFFINESS IN HIS ARMS AND FEET. CONFIRMED THAT WE WOULD KEEP THE FLUIDS THE SAME UNTIL PATIENT WAS HAVING BETTER ORAL INTAKE.
--- NOTE | 2021-07-23 10:46 | NUR ---
THIS RN IN TO REEVALUATE PATIENT'S PAIN. PATIENT DENIES PAIN AT THIS TIME AND ALSO DENIES NAUSEA. PATIENT'S CONTINUES TO VISIT WITH PATIENT. PATIENT SAYS HE WILL CALL IF HE NEEDS ANYTHING. CALL LIGHT IN REACH.
--- NOTE | 2021-07-23 11:00 | NUR ---
PATIENT'S S/O LISA CALLED AND SAID HE HAD BEEN TALKING WITH THE PATIENT'S SISTER AND THE TWO OF THEM WERE WANTING TO KNOW IF ABD X-RAYS COULD BE ORDERED TO LOOK AT THE PATIENT'S BOWELS. THIS RN INFORMED LISA THAT ABD X-RAYS WERE DONE ABOUT AN HOUR AGO FOR THAT PURPOSE. LISA THANKED ME AND GOT OF THE LINE. PATIENT DENIES ANY CARE NEEDS AT THIS TIME. CALL LIGHT IS IN REACH.
--- NOTE | 2021-07-23 12:00 | NUR ---
THIS RN IN TO SEE PATIENT AND PATIENT BELCHING A LOT. 10MF SIVP REGLAN GIVEN PER 'S NEW ORDER AND NOTE. PATIENT HAD NO OTHER CARE NEEDS AT THIS TIME. CALL LIGHT PATRICK GARCIA.
--- NOTE | 2021-07-23 13:25 | NUR ---
PATIENT HAS BEEN UP DOING LAPS AROUND THE MED/SURG UNIT. PATIENT HAS DENIED ANY CARE NEEDS AT THIS TIME AND WILL CALL IF HE NEEDS SOMETHING. PATIENT APPEARS TO BE HAVING NO ISSUES AMBULATING.
--- NOTE | 2021-07-23 13:54 | NUR ---
PATIENT IN CHAIR WATCHING TV, IND. IN ROOM. VITALS AND I&O'S CHARTED. CALL LIGHT IN REACH. NO FURTHER NEEDS AT THIS TIME.
--- NOTE | 2021-07-23 14:46 | NUR ---
PATIENT CALLED AND HE HAD A SMALL LOOSE BROWNISH STOOL IN THE TOILET. PATIENT DENIES NAUSEA AND PAIN AND VERBALIZES HE THINKS THE REGLAN HELPED WITH HIS BM. AFTERNOON ASSESSMENT COMPLETE. VS STABLE. CALL LIGHT IS IN REACH. PATIENT REMAINS UP IN THE BEDSIDE ARMCHAIR AND DENIES ANY CARE NEEDS AT THIS TIME.
--- NOTE | 2021-07-23 17:00 | NUR ---
PATIENT HAS BEEN ACTIVE TODAY. HE HAS BEEN GETTING HIMSELF OUT IN THE ARMENDARIZ WALKING MULTIPLE TIMES. PATIENT HAD ONE SMALL LOOSE DARK BROWNISH MADALYN FINALLY TODAY AFTER RECEIVING REGLAN. PATIENT REMAINS ON A FULL LIQUID DIET FOR NOW. WHANTED TO MAKE SURE PATIENT WAS HAVING BETTER BOWEL MOTILITY BEFORE HE ADVANCED HIS DIET ANY FURTHER. PATIENT WORKING ON HIS DINNER AT THIS TIME. PATIENT IS UP IN THE BEDSIDE ARMCHAIR AND HAS HAD NO C/O NAUSEA TODAY AND ONLY NEEDED SOME MOTRIN THIS AM FOR SOME ABD PAIN, WHICH RESOLVED WITH THE MOTRIN. CALL LIGHT IS IN REACH AND WANTS TO KEEP IV FLUIDS RUNNING AT THE CURRENT RATE FOR NOW. PATIENT DENIES ANY CARE NEEDS AT THIS TIME.
--- NOTE | 2021-07-23 18:16 | NUR ---
THIS RN IN TO CHECK ON PATIENT. PATIENT SAYS HE IS HAVING 6/10 ABD PAIN AND SAYS HE HAD ANOTHER SMALL STOOL. THIS RN VISULAIZED A COUPLE SMALL PIECES OF STOOL IN THE TOILET, DARK BROWN IN COLOR. PATIENT STILL EATING 25% OR LESS OF HIS MEALS THROUGHOUT THE DAY. 600MG PO MOTRIN GIVEN FOR ABD PAIN. PATIENT'S VS STABLE AND HE IS AFEBRILE, BUT HE SAYS HE IS COLD SO 2 WARM BLANKETS GIVEN. CALL LIGHT IS IN REACH AND PATIENT DENIES ANY OTHER NEEDS AT THIS TIME.
--- NOTE | 2021-07-23 19:37 | NUR ---
RECEIVED REPORT FROM DAY SHIFT RN. PATIENT IS RESTING IN BED WATCHING TV. PATIENT DENIES ANY NEEDS. PATIENT DENIES ANY PAIN. CALL LIGHT IN REACH.
--- NOTE | 2021-07-23 20:15 | NUR ---
in to get vitals with rn, room tidied, no further needs at this time
--- NOTE | 2021-07-23 20:28 | NUR ---
PATIENT ASSESMENT COMPLETED. PATIENTS ABD IS DISTENDED, TENDER, AND SOFT. PATIENT REPORTS BLOATING. PATIENT ENCOURAGED TO AMBULATE. VITALS TAKEN AND RECORDED. INTAKE AND OUTPUT RECORDED. PATIENTS PM MEDS GIVEN PER ORDER. PATIENTS IV INFUSING PER ORDER. PATIENT REPORTS 4/10 PAIN IN HIS ABD, PRN TYLENOL GIVEN PER ORDER. PATIENT DENIES ANY NAUSEA. PATIENTS MID ABD DRESSING IS C/D/I, AND OLD DRAINAGE NOTED. PATIENT HAS 2+ EDEMAN NOTED IN HIS BILAT LOW EXT. GENERALIZED EDEMA IN HANDS AND ARMS. PATIENT DENIES ANY SOB. PATIENT HAS DRY NON-PRODUCTIVE COUGH. PATIENT DENIES ANY FURTHER NEEDS. FRESH ICE WATER PROVIDED. CALL LIGHT IN REACH.
--- NOTE | 2021-07-23 22:32 | NUR ---
PATIENT REPORTS 4/10 PAIN, PRN PAIN MEDICATION GIVEN PER ORDER AND REQUEST. PATIENTS URINAL EMPTIED. PATIENT DENIES ANY FURTHER NEEDS CALL LIGHT IN REACH.
--- NOTE | 2021-07-23 23:40 | NUR ---
PATIENT IS RESTING IN BED WITH EYES CLOSED, RR 16. CALL LIGHT IN REACH. IV INFUSING PER ORDER. URINAL EMPTIED.
--- NOTE | 2021-07-24 01:02 | NUR ---
PATIENT IS RESTING IN BED WITH EYES CLSOED, RR 16. CALL LIGHT IN REACH. IV INFUSING PER ORDER.
--- NOTE | 2021-07-24 02:24 | NUR ---
PATIENT IS RESTING IN BED WITH EYES CLOSED, RR 19. CALL LIGHT IN REACH. IV INFUSING PER ORDER.
--- NOTE | 2021-07-24 03:20 | NUR ---
PATIENT IS RESTING IN BED WATCHING TV. PATIENT DENIES ANY PAIN OR NAUSEA. NO NEEDS NOTED. CALL LIGHT IN REACH.
--- NOTE | 2021-07-24 05:18 | NUR ---
RT ADMIN PRN NEB. VITALS TAKEN AND RECORDED. INTAKE AND OUPTUR RECORDED. PATIENT REPORTS 4/10 PAIN, PRN MOTRIN GIVEN PER ORDER. PRN NAUSEA MEDICATION GIVEN PER ORDER. PATIENTS MID ABD DRESSING C/D/I, AND OLD DRAINGE NOTED. PATIENTS ABD REMAINS DISTENDED AND TENDER. ENCOURAGED PATIENT TO AMBULATE IN THE ARMENDARIZ. PATIENT STATED "I WILL AFTER BREAKFAST". PATIENTS IV INFUSING PER ORDER. NO FURHTER NEEDS NOTED. CALL LIGHT IN REACH.
--- NOTE | 2021-07-24 07:16 | NUR ---
THIS RN RECEIVED REPORT FROM MARVA JOHNSON. PATIENT DENIES PAIN AT THIS TIME AND DENIES NAUSEA. URINAL EMPTIED AND RECORDED. PATIENT HAS NO CURRENT CARE NEEDS AT THIS TIME. CALL LIGHT IS IN REACH.
--- NOTE | 2021-07-24 07:52 | NUR ---
PATIENT CALLED HAVING NAUSEA AND 8MG SIVP ZOFRAN WAS GIVEN ALONG WITH AM MEDS. PATIENT DENIES THE NEED FOR PAIN MEDICATION AT THIS TIME. PATIENT'S ABD LOOKS AND FEELS A LITTLE MORE DISTENDED THIS AM AND PATIENT BELIEVES THAT TO BE THE CASE WELL. BOWEL TONES ARE ACTIVE. PATIENT DENIES ANY OTHER CARE NEEDS AT THIS TIME. CALL LIGHT IN REACH.
--- NOTE | 2021-07-24 08:33 | NUR ---
THIS RN IN TO CHECK ON PATIENT'S NAUSEA WHICH HE STILL HAS. 25MG PO PHENERGAN GIVEN. PATIENT DENIED ANY OTHER CARE NEEDS AT THIS TIME. CALL LIGHT IS IN REACH.
--- NOTE | 2021-07-24 09:51 | NUR ---
JUST IN TO SEE PATIENT. INFORMED THIS RN WE WILL CONTINUE IV FLUIDS ORDERED AND THAT WE WILL NOT ADVANCE PATIENT'S DIET PAST FULL LIQUIDS YET, AND TO START GIVING THE IV REGLAN REGULARLY. THIS RN VERBALIZED UNDERSTANDING. PATIENT NOT QUITE DUE FOR NEXT DOSE OF REGLAN YET. PATIENT HAS NO CARE NEEDS FROM ME AT THIS TIME. CALL LIGHT IS IN REACH.
--- NOTE | 2021-07-24 10:17 | NUR ---
PATIENT HAS BEEN ENCOURAGED TO BE UP WALKING AND PATIENT IS CURRENTLY WALKING LAPS AROUND THE MED/SURG UNIT. PATIENT APPEARS STEADY AND STABLE IN HIS AMBULATION WITH HIS IV POLE.
--- NOTE | 2021-07-24 10:58 | NUR ---
PATIENT AMBULATED MULTIPLE LAPS IN HALLWAY INDEPENDENTLY. PATIENT NOW IN CHAIR WATCHING TV. VITALS AND I&O'S CHARTED. LINENS CHANGED. CALL LIGHT IN REACH. NO FURTHER NEEDS AT THIS TIME.
--- NOTE | 2021-07-24 11:14 | NUR ---
LAB WORKER IN DRAWING 11AM LABS ORDERED. PATIENT HAS NO CARE NEEDS FROM THIS RN AT THIS TIME. CALL LIGHT IS IN REACH.
--- NOTE | 2021-07-24 12:18 | NUR ---
THIS RN IN TO CHECK ON PATIENT. PATIENT DENIES THE NEED FOR PAIN OR NAUSEA MEDICATION AT THIS TIME, BUT IS REQUESTING A BREATING TREATMENT. THIS RN CALLED RT AND THEY ARE ON THERE WAY. PATIENT CONTINUING TO TRY AND EAT HIS FULL LIQUID LUNCH. CALL LIGHT IS IN REACH.
--- NOTE | 2021-07-24 12:31 | NUR ---
PATIENT CALLED AND SAID HE HAD A BM. THIS RN WENT IN AND VISUALIZED A SMALL FORMED LIGHT BROWN BM AND EMPTIED THE URINAL. PATIENT STILL EATING LUNCH AND TALKING ON THE PHONE. PATIENT HAS NO CURRENT CARE NEEDS. CALL LIGHT IS IN REACH.
--- NOTE | 2021-07-24 14:01 | NUR ---
PATIENT SITTING IN CHAIR WATCHING TV. VITALS AND I&O'S CHARTED. CALL LIGHT IN REACH. PATIENT REQUESTING LUIZA ARMSTRONG RN NOTIFIED. NO FURTHER NEEDS AT THIS TIME.
--- NOTE | 2021-07-24 16:31 | NUR ---
RT COLLECTED RAPID COVID 19 SWAB AT THIS TIME WITH NO COMPLICATIONS.
--- NOTE | 2021-07-24 18:07 | NUR ---
THIS RN IN TO SEE PATIENT AND DO EVENING ASSESSMENT. PATIENT HAVING 4/10 ABD PAIN AND REQUESTING MEDS FOR PAIN AND NAUSEA. PATIENT NOT DUE FOR MOTRIN YET. 1 PO NORCO AND 1 PO PHENERGAN GIVEN. PATIENT CONTINUES TO WORK ON HIS FULL LIQUID DINNER. PATIENT'S ABD STILL REMAINS ABOUT DISTENDED AND TENDER THIS MORNING, BUT BOWEL TONES ARE PRESENT AND HE HAS HAD THOS FEW LITTLE FORMED BM'S TODAY. CALL LIGHT IS IN REACH AND PATIENT HAS NO CURRENT CARE NEEDS FROM THIS RN AT THIS TIME.
--- NOTE | 2021-07-24 18:56 | NUR ---
PATIENT IN BED REATING AT THIS TIME. VITALS AND I&O'S CHARTED. CALL LIGHT IN REACH. NO FURTHER NEEDS AT THIS TIME.
--- NOTE | 2021-07-24 19:20 | NUR ---
pt RESTING IN BED AWAKE. RATES PAIN 3/10 IN ABDOMEN. DENIES ICE PACK OR ADDITIONAL REQUESTS. RESTING IN BED WITH CALL LIGHT IN REACH. IVF INFUSING WNL ORDERED, NEW BAG INFUSING AT THIS TIME.
--- NOTE | 2021-07-24 19:58 | NUR ---
RECEIVED REPORT. PATIENT SITTING UPRIGHT IN CHAIR. BREATHING EVEN AND UNLABORED. IV WNL. NO NEEDS VOICED AT THIS TIME. CALL LIGHT WITHIN REACH.
--- NOTE | 2021-07-24 20:58 | NUR ---
ASSESSMENT COMPLETE. PATIENT SLEEPING AWAKENS TO VOICE. DENIES PAIN. DENIES NAUSEA. ENSURE DRINK PROVIDED. BOWEL TONES ACTIVE. ABDOMEN DISTENDED AND FIRM. LUNG SOUNDS CLEAR. VSS. EDEMA NOTED THROUGHOUT EXTREMETIES 2+ MD AWARE PER DAY SHIFT RN. NEW IV IN LEFT FOREARM PER POLICY. IV FLUIDS INFUSING WITHIN NORMAL LIMITS. NO OTHER NEEDS VOICED AT THIS TIME. CALL LIGHT WITHIN REACH.
--- NOTE | 2021-07-24 23:37 | NUR ---
CHECKED ON PATIENT. PATIENT RESTING IN BED. BREATHING EVEN AND UNLABORED. EMPTIED URINAL. DUMPED BEDSIDE WATER DUE TO NPO PER ORDERS. CALL LIGHT WITHIN REACH.
--- NOTE | 2021-07-25 02:14 | NUR ---
PATIENT AWAKE, ALERT AND ORIENTED UPON ROOM ENTRY. PATIENT VOICED PAIN 4 OUT OF 10. ADMINISTERED RX PER EMAR. INFORMED PATIENT OF NPO ORDER AND ABDOMINAL ULTRASOUND. ASSESSMENT COMPLETE. LUNG SOUNDS CLEAR. BOWEL TONES ACTIVE. DRESSING INTACT WITH SMALL RED DRY DRAINAGE. EDEMA PRESENT IN EXTREMETIES 2+. NO OTHER NEEDS VOICED AT THIS TIME. CALL LIGHT WITHIN REACH.
--- NOTE | 2021-07-25 04:00 | NUR ---
CHECKED ON PATIENT. RESTING IN BED BREATHING EVEN AND UNLABORED. CALL LIGHT WITHIN REACH.
--- NOTE | 2021-07-25 06:16 | NUR ---
PATIENT IS ORIENTED TO SELF, PLACE, AND TIME. PATIENT TOLERATED FLUID RESTRICTION AND NPO THROUGHOUT SHIFT. DENIES NAUSEA AND VOICED PAIN 4 OUT OF 10. PAIN RX ADMINISTERED PER EMAR. ON ROOM AIR. VSS THROUGHOUT SHIFT. LUNG SOUNDS CLEAR. BOWEL DISTENEDED AND FIRM, PATIENT DENIES TENDERNESS TO TOUCH. WAS UNABLE TO HEAR HEART MURMUR REPORTED FROM DAY SHIFT RN. PATIENT INDEPENDENT IN ROOM. EDEMATOUS THROUGHOUT EXTREMETIES 2+. CALL LIGHT WITHIN REACH.
--- NOTE | 2021-07-25 06:44 | NUR ---
PATIENT WAS RESTING IN BED BUT AWAKEN BY VOICE. VSS. URINAL DUMPED. ROOM TIDIED. NO NEEDS VOICED AT THIS TIME. CALL LIGHT WITHIN REACH.
--- NOTE | 2021-07-25 07:30 | NUR ---
THIS RN RECEIVED SHIFT REPORT FROM MARVA VU. PATIENT RESTING QUIETLY IN SEMIFOWLERS POSITION, EYES CLOSED, RESPIRATIONS ARE REGULAR AND EVEN, AND CALL LIGHT IS IN REACH. PATIENT HAS NO CURRENT CARE NEEDS AT THIS TIME.
--- NOTE | 2021-07-25 08:27 | NUR ---
PATIENT NPO AWAITING DIAGNOSTIC IMAGING. PATIENT DENIES THE NEED FOR PAIN OR NAUSEA MEDICATION AT THIS TIME. AM MEDS GIVEN EXCEPT PO MED HELD. AM ASSESSMENT COMPLETE. URINAL EMPTIED. CALL LIGHT IN REACH. PATIENT HAS NO OTHER CARE NEEDS AT THIS TIME. CALL LIGHT IS IN REACH.
--- NOTE | 2021-07-25 09:35 | NUR ---
PATIENT SITTING IN CHAIR AT THIS TIME. VITALS AND I&O'S CHARTED. CALL LIGHT IN REACH. NO FURTHER NEEDS AT THIS TIME.
--- NOTE | 2021-07-25 11:44 | NUR ---
ULTRASOUND IN WITH PATIENT AT THIS TIME. PATIENT HS NO CARE NEEDS FROM THIS RN AT THIS TIME.
--- NOTE | 2021-07-25 12:13 | OR ---
[facility] [address] [place], [place] [address] Signed DATE OF OPERATION: 07/17/2021 SURGEON: Mati Rodarte MD PREOPERATIVE DIAGNOSIS: Persistent ongoing small bowel obstruction with pain. POSTOPERATIVE DIAGNOSIS: Small bowel obstruction related to the intra-abdominal adhesions. PROCEDURES: 1. Exploratory laparotomy with extensive lysis of adhesions, prolonged complicated difficult. 2. Segmental small bowel resection with [id number] enteroenterostomy. ANESTHESIA: General endotracheal. Herve Krause CRNA and postoperative TAP blocks. INDICATION: This 86-year-old white man is well known to me from the past. He is a patient of Dr. Juliette Gallego. He was admitted on July 15, 2021 with small-bowel obstruction as noted clinically by protracted nausea and vomiting as well as CT scan showing dilated small bowel greater than 3.5 cm and distal decompression. The patient has distant history of hiatal hernia repair elsewhere as well as small-bowel obstruction, requiring laparotomy by me in the past showing malrotation of the right colon as well as incisional hernia repair with implantation of mesh. The patient has been given fluid resuscitation, decompression of the GI tract with a nasogastric tube and continued monitoring, but is required recurrent amounts of Dilaudid, pain medication for significant paroxysms of pain. Of note, on the CT scan is an area in the left lower abdomen with dilated segmental cluster of bowel loops, which are highly probable as the source of the problem. A conservative approach has been maintained with nasogastric tube decompression, IV fluid administration, so forth, but given his persistent episodic severe abdominal pain and lack of progress clinically and radiographically, I have recommended exploration and remedy of the problem. The risk of bleeding, infection, need for bowel resection and other unforeseen complications related to treatment of the bowel obstruction have been reviewed with him and his . They understand and wished to proceed. FINDINGS: Electronically Signed By: MATI RODARTE MD 07/25/21 1213 PATIENT NAME: AMY NOE OPERATIVE REPORT DATE OF : 37 REPORT #: [id number] PHYSICIAN: MATI RODARTE MD PCP: JULIETTE GALLEGO MD REPORT IS CONFIDENTIAL AND NOT TO BE RELEASED WITHOUT AUTHORIZATION [facility] [address] [place], [place] [address] Signed Considerable intraabdominal adhesions were noted. Meticulous care was taken in lysing essentially all of the adhesions of small bowel. The area of maximal dilation and obstruction was in the left lower quadrant. Palpable abdominal mass was noted induction of anesthesia in that area corresponding to the a jumbled loop of bowel that had interloop adhesions. These were freed up largely and these were repaired with 3-0 silk. Extensive lysis of adhesions throughout the abdomen was undertaken. The most proximal small bowel starting at the beginning of the jejunum was entirely normal and the area decompression beyond the obstruction, which was mostly in the left lower quadrant was noted to have interloop adhesions, which were ultimately freed up entirely. A segment of bowel, which had significant narrowing and not related to recurrent obstruction was resected due to deserosalization and questionable viability and a [id number] functional end-to-end anastomosis obtained there. Sigmoid colon and rectum appeared normal as did the right colon, which was in a reasonably normal position compared to the previous laparotomy. There was foreshortening of the omentum, though what was available was used to cover the intraabdominal viscera. The Gram stain and culture were obtained of inflammatory fluid at the outset of the procedure, which showed only white cells and no sign of organisms. DESCRIPTION OF PROCEDURE: The patient was brought to the operating room, given a general endotracheal anesthetic. A Lombardo catheter was placed. Nasogastric tube was in place. The abdomen was clipped and prepared with chlorhexidine solution and draped sterilely. Preoperative antibiotic cefoxitin was given. Palpation of the abdomen had revealed a mass in the left lower quadrant highly consistent with the CT scan findings of small bowel loops with interloop adhesions and distortion. Incision was made, centered on the umbilicus and extended inferiorly. Dissection was carried through the dermis, which had as expected Prolene mesh from the past. The peritoneal cavity was meticulously entered showing thin loops of decompressed small bowel somewhat adherent to the abdominal wall. These were dissected free with meticulous care using sharp dissection. Laborious dissection was undertaken to allow for entry into the abdominal cavity with special care to avoid enterotomies. With a considerable amount of time in effort, incision was extended cephalad under direct visualization, ultimately entering the peritoneal cavity well. Decompressed loops were noted in the central and lateral right side, but on the left side it was as expected a jumble of bowel that was markedly inflamed and inflammatory fluid and possibly even purulence was noted initially. This was cultured and Gram stains obtained. Subsequently, he was found only to have white cells and no organisms in that fluid. Interloop adhesiolysis was undertaken with sharp dissection and electrocautery as necessary. Ultimately, the right-sided bowel loops could be freed more fully in the upper abdomen on the left side entirely normal. Small bowel emanating from the ligament of Treitz noted. Electronically Signed By: MATI RODARTE MD 07/25/21 1213 PATIENT NAME: AMY NOE VICTORIA OPERATIVE REPORT DATE OF : 37 REPORT #: [id number] PHYSICIAN: MATI RODARTE MD PCP: JULIETTE GALLEGO MD REPORT IS CONFIDENTIAL AND NOT TO BE RELEASED WITHOUT AUTHORIZATION [facility] [address] [place], [place] [address] Signed The area in question for obstruction appeared to be the left lower quadrant with jejunal bowel loops that had interloop adhesions, which were quite dense and making the small bowel essentially contiguous with itself. The bowel was able to be eviscerated and body position change to the left side of the table allowing for lysis of adhesions of decompressed small bowel in the right side. As there was opportunity to allow for adhesiolysis, and mindful of his episodic symptoms suggestive of incomplete bowel obstruction in the past, lysis of essentially all bowel loops was ultimately undertaken. On the right side, there was an area of special narrowing with interloop adhesions, which was dissected free and its appearance appeared to have chronic inflammatory change and the serosal invasion leaving it as it is deemed inadvisable on that basis. Segmental bowel resection was organized. The small bowel was freed entirely from the right side of the abdomen and retroperitoneum from the area of concern were well positioned. The mesentery to that segment of small bowel was incised with electrocautery and the mesenteric vessels secured with 0 silk ties. A LEILA stapling device was used to transect the segment of small bowel, which was approximately 8 cm in length. The opening of the bowel showed no sign of intraluminal neoplasm. A eepp-kt-jgjo functional end-to-end enteroenterostomy were undertaken with the LEILA stapling device and the lens that remained open were sewn with a running 3-0 Vicryl in the mucosal layer and interrupted 3-0 silk suture in the serosal layer. Succus entericus was passed beyond the anastomosis, which was widely patent. There was no sign of leakage. The mesenteric defect was secured with interrupted 3-0 Vicryl rather 3-0 silk suture. This bowel was replaced into the abdomen and attention turned towards the culprit of obstruction, which was in the located in left lower quadrant. This segment of bowel was extracted to the outside and using sharp dissection both with electrocautery and sharp dissection and blunt dissection. The interloop adhesions were taken down more fully. I had fully expected that this would require segmental excision, but with further dissection and in a prompt way, the bowel loops were freed from each other without its enterotomy. There was one serosal defect, which was secured with interrupted 3-0 silk sutures transversely applied so as to avoid luminal narrowing. The abdomen was irrigated with 3 L of warm saline solution. The small bowel at the ligament of Treitz was identified in the small bowel carefully run from proximal to distal traversing the areas of lysis of adhesions as well as the serosal repairs and ultimately the anastomosis itself. Irrigation was undertaken more fully. Hemostasis assured, particularly in the area of the omentum proximally with hemoclips as necessary. The intra-abdominal viscera were replaced to a natural anatomic configuration, the abdomen irrigated more fully and plans made for closure. The midline fascia was reapproximated with running bidirectional Prolene suture (#1) due to the implanted mesh Electronically Signed By: MATI RODARTE MD 07/25/21 1213 PATIENT NAME: AMY NOE OPERATIVE REPORT DATE OF : 37 REPORT #: [id number] PHYSICIAN: MATI RODARTE MD PCP: JULIETTE GALLEGO MD REPORT IS CONFIDENTIAL AND NOT TO BE RELEASED WITHOUT AUTHORIZATION [address] [address] Signed from prior hernia repair. Subcutaneous tissue was irrigated and the skin closed with running subcuticular 3-0 Vicryl. Steri-Strips were applied as well as an Acticoat dressing. The fuel injection servicer proceeded to perform a TAP block for postoperative analgesic benefit. He was ultimately extubated and transferred to the recovery room in good condition, having suffered no complications. Sponge, needle, and counts reported as correct x3. MD DANELLE Damian/MODL /[id number] cc: MD Juliette Verdugo MD Copies: GUY MORA MD, RUSSELL BARR MD ~ Electronically Signed By: MATI RODARTE MD 07/25/21 1213 PATIENT NAME: AMY NOE OPERATIVE REPORT DATE OF : 37 REPORT #: [id number] PHYSICIAN: MATI RODARTE MD PCP: JULIETTE GALLEGO MD REPORT IS CONFIDENTIAL AND NOT TO BE RELEASED WITHOUT AUTHORIZATION
--- NOTE | 2021-07-25 12:13 | HP ---
[facility] [address] [place], [place] [address] Signed ADMISSION DATE: 07/15/2021 REASON FOR ADMISSION: Small bowel obstruction (recurrent). HISTORY OF PRESENT ILLNESS: This 86-year-old white man is well known to me from the past. He presented to the emergency room at approximately 11:00 p.m. last night, where he had this rather sudden onset of severe abdominal pain while beginning his dinner. It began about 06:00 p.m. He admits that he has had pain from time to time in the abdomen, but it usually "wears off" with ambulation and so on. He had no associated nausea or vomiting, and two loose bowel movements last night without blood. He is noted to have undergone a hiatal hernia repair in [place], [place] a number of years ago, which appears to be recurrent and is also noted to have undergone incisional hernia repair by me with implantation of mesh in the past. 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 At that time, on September 22, 2018, he was considered to have chronic recurrent small bowel obstruction, relative to the adherent position of ileum and cecum (right upper quadrant) with adhesive changes of the ileum to the pelvic sidewall. Appendectomy was concurrently performed due to chronic scarring. A CT scan performed in the emergency room under the direction of Dr. Mora at approximately midnight, described dilated small bowel loops proximally and distal decompression with a transition point suggested in the right mid abdomen. My own review of the CT scan shows a somewhat suspicious conglomeration of small bowel in the left lower abdomen. There is decompression of the descending colon and stool within the right colon on the interpretation of the radiologist. LABORATORY STUDIES: Showed white count was elevated to 15.1 this morning, now 9.4. Upon presentation, he was having a fair amount of discomfort and some retching, though his nasogastric tube was well positioned and the abdominal x-ray confirmed this, and I reviewed it. He is now less troubled having undergone pain medication administration (Dilaudid 0.8 mg). PAST MEDICAL HISTORY: Notable for COPD, for which he uses albuterol and hypertension as well as iry-xwbvavb-kdslkpunt diabetes mellitus and dyslipidemia. Electronically Signed By: MATI RODARTE MD 07/25/21 1213 PATIENT NAME: AMY NOE HISTORY AND PHYSICAL DATE OF : 37 REPORT #: [id number] PHYSICIAN: MATI RODARTE MD PCP: JULIETTE GALLEGOS MD REPORT IS CONFIDENTIAL AND NOT TO BE RELEASED WITHOUT AUTHORIZATION [facility] [address] [place], [place] [address] Signed MEDICATIONS: At home include Tylenol, episodically albuterol nebulizer, Zyrtec as needed, fluticasone as needed, gabapentin, ibuprofen, losartan, metformin, and simvastatin. REVIEW OF SYSTEMS: He denies any chest pain or shortness of breath. He has had no hematemesis or blood per rectum. Denies any dysphagia. PHYSICAL EXAMINATION: GENERAL: Pleasant white man, who is settled down more than my initial evaluation. VITAL SIGNS: Temperature is 97.4, pulse 70, blood pressure 131/58. NECK: Trachea is midline. CHEST: Shows normal respiratory excursion without wheeze or rhonchi. ABDOMEN: Somewhat pot belly in appearance. There is a midline incision. Has mild tenderness in the left lower quadrant dominantly. EXTREMITIES: Show no clubbing, cyanosis, or edema. LABORATORY STUDY: At admission, white count 15.1, now 9.4; hematocrit 44.9, now 40.9; and platelets 152,000. Chem profile showed an initial creatinine of 1.84, now 1.43; glucose 180. Liver enzymes at admission normal. Lipase 106. Serology shows negative COVID. ASSESSMENT AND PLAN: I reviewed his CT scan, his labs and so forth, and of course examined him. He clearly has a recurrent small bowel obstruction. I would like to past his bowel obstruction on this occasion, it was associated with a significant amount of pain. His left lower abdominal CT scan area shows bowel loops are suggestive and some concern as to possible internal hernia or other abnormality. I believe a short fuse for operative intervention would be warranted in his situation depending on his progress. He is appropriately decompressed at this time, has IV fluids running and is improved from a hydration standpoint. If persistent pain or other findings of concern do not promptly resolved, then exploration will be necessary. We discussed this in detail. Mati Rodarte MD Electronically Signed By: MATI RODARTE MD 07/25/21 1213 PATIENT NAME: AMY NOE HISTORY AND PHYSICAL DATE OF : 37 REPORT #: [id number] PHYSICIAN: MATI RODARTE MD PCP: JULIETTE GALLEGOS MD REPORT IS CONFIDENTIAL AND NOT TO BE RELEASED WITHOUT AUTHORIZATION [address] [address] Signed /[facility] /[id number] cc: Guy Mora MD Copies: GUY MORA MD ~ Electronically Signed By: MATI RODARTE MD 07/25/21 1213 PATIENT NAME: AMY NOE HISTORY AND PHYSICAL DATE OF : 37 REPORT #: [id number] PHYSICIAN: MATI RODARTE MD PCP: JULIETTE GALLEGOS MD REPORT IS CONFIDENTIAL AND NOT TO BE RELEASED WITHOUT AUTHORIZATION
--- NOTE | 2021-07-25 12:49 | NUR ---
THIS RN IN TO SEE PATIENT. PATIENT WANTING TO EAT AND DRINK. THIS RN INFORMED PATIENT WE ARE WAITING ON THE READING FROM HIS GALLBLADDER ULTRASOUND AND THEN THIS RN CAN CONTACT ABOUT RESUMING HIS DIET. NEW BAG OF IV FLUIDS HUNG. PATIENT HEADED OUT TO WALK THE HALLS AT THIS TIME AND HAS NO OTHER CARE NEEDS FROM [facility] RN AT THIS TIME.
--- NOTE | 2021-07-25 14:58 | NUR ---
JUST PUT IN ORDERS TO RESTART PATIENT'S FULL LIQUID DIET. PATIENT GIVEN PUDDING AND MILK RADHA HE REQUESTED. PATIENT HAVING 3/10 ABD PAIN AND GIVEN PO MOTRIN. PATIENT DENIED ANY OTHER CARE NEEDS AT THIS TIME. ASSESSMENT COMPLETE. BOWEL TONES REMAIN ACTIVE AND PATIENT IS PASSING GAS. CALL LIGHT IS IN REACH AND PATIENT HAS NO OTHER CARE NEEDS AT THIS TIME.
--- NOTE | 2021-07-25 17:55 | NUR ---
THIS RN IN TO CHECK ON PATIENT. PATIENT SAYS HIS PAIN IS "OK" AT THIS TIME AND DENIED THE NEED FOR ANY PAIN OR NAUSEA MEDS. PATIENT ATE 75% OF HIS DINNER. PATIENT DENIED ANY CARE NEEDS AT THIS TIME. CALL LIGHT IS IN REACH.
--- NOTE | 2021-07-25 18:04 | NUR ---
PATIENT AMBULATED IN HALLWAY INDEPENDENTLY. PATIENT NOW IN BED WATCHING TV. VITALS AND I&O'S CHARTED. CALL LIGHT IN REACH. NO FURTHER NEEDS AT THIS TIME.
--- NOTE | 2021-07-25 19:33 | NUR ---
RECEIVED REPORT FROM JACQUELINE DURHAM. PATIENT ALERT AND ORIENTED. BREATHING EVEN AND UNLABORED. IV LR INFUSING WNL. PATIENT RATED PAIN 4 OF 10. PAIN RX ADMINISTERED PER EMAR. ICE WATER PROVIDED. URINAL DUMPED. NO OTHER NEEDS VOICED AT THIS TIME. CALL IGHT WITHIN REACH.
--- NOTE | 2021-07-25 20:04 | NUR ---
PATIENT REQUESTED COFFEE. COFFEE PROVIDED. NO OTHER NEEDS VOICED AT THIS TIME. CALL LIGHT WITHIN REACH.
--- NOTE | 2021-07-25 20:36 | NUR ---
PHONE CALL FROM MD REQUESTING UPDATE. UPDATED ON pt CONDITION, AMBULATION, PAIN, EDEMA, TOLERATING DIET, NO NAUSEA REPORTED. NO NEW ORDERS AT THIS TIME.
--- NOTE | 2021-07-25 20:39 | NUR ---
PATIENT ALERT AND ORIENTED. ASSESSMENT COMPLETE. VSS. LUNG SOUNDS CLEAR. BOWEL TONES ACTIVE. ABDOMEN DISTENDED AND FIRM BUT PATIENT DENIES TENDERNESS. EDEMATOUS THROUGHOUT EXTREMITIES 2+. IV INFUSING WNL. PATIENT DENIES PAIN OR NAUSEA. DUMPED URINAL. PROVIDED PATIENT WITH ICE WATER. OFFERED PATIENT ENSURE SUPPLIMENT, PATIENT DENIED ENSURE. NO OTHER NEEDS VOICED AT THIS TIME. CALL LIGHT WITHIN REACH.
--- NOTE | 2021-07-25 22:48 | NUR ---
CHECKED ON PATIENT. DUMPED URINAL. NO NEEDS VOICED AT THIS TIME. CALL LIGHT WITHIN RECH.
--- NOTE | 2021-07-26 00:35 | NUR ---
CHECKED ON PATIENT. PATIENT IS RESTING WITH EYES CLOSED. BREATHING IS EVEN AND UNLABORED. CALL LIGHT WITHIN REACH.
[2021-07-26] MEDS ORDERED: GABAPENTIN300 MG (01:38)
--- NOTE | 2021-07-26 01:47 | NUR ---
IV PUMP ALARMING, pt PACING IN ROOM. COMPLAINS THAT FEET ARE BURNING DUE TO NEUROPATHY, HAS BEEN HURTING EVERY NIGHT MAKING IT DIFFICULT TO SLEEP. pt OFFERED ICE PACKS, DECLINES. STATES "ONLY THING THAT WORKS IS MY MEDICATIONS AT HOME. I'VE BEEN OFF FOR ABOUT 10 DAYS NOW." PHONE CALL TO MD, NEW ORDERS RECEIVED AND REPEATED BACK TO VERIFY. EMAR UPDATED.
--- NOTE | 2021-07-26 01:48 | NUR ---
CHECKED ON PATIENT. PATIENT AMBULATING IN ROOM AND COMPLAINED OF FOOT PAIN DUE TO NEUROPATHY. HORACE DURHAM CALLED DOCTOR FOR RX OF GABAPENTIN. URINAL DUMPED. ADMINISTERED RX PER EMAR. IV FLUSHED WITH 10 ML SALINE BEFORE AND AFTER RX ADMINSTRATION. PROVIDED PATIENT ENSURE SUPPLIMENT AND ICE WATER. ASSESSMENT COMPLETE. NO OTHER NEEDS VOICED AT THIS TIME. CALL LIGHT WITHIN REACH.
--- NOTE | 2021-07-26 04:22 | NUR ---
CHECKED ON PATIENT. RESTING WITH EYES CLOSED AND LIGHTS OFF. BREATHING EVEN AND UNLABORED. CALL LIGHT WITHIN REACH.
--- NOTE | 2021-07-26 05:42 | NUR ---
PATIENT IS ORIENTED TO SELF, PLACE AND TIME. PATIENT TOLERATING FULL LIQUID RESTRICTIONS. PATIENT DENIED NAUSEA BUT DID COMPLAIN OF PAIN IN FEET FROM NEUROPATHY. HORACE RN CALLED DOCTOR FOR RX GABAPENTIN. RX ADMINISTERED PER EMAR FOR PAIN. ON ROOM AIR. INDEPENDENT IN ROOM. AMBULATED IN HALLWAY FOR ABOUT 5 MINUTES. VSS. LUNG SOUNDS CLEAR. BOWEL SOUNDS PRESENT. ABDOMEN DISTENDED AND FIRM BUT PATIENT DENIES TENDERNESS UNTIL HE AMBULATES. EDEMATOUS THROUGHOUT EXTREMETIES 2+. VOID SUFFICIENT THROUGHOUT SHIFT. NO NEEDS VOICED. CALL LIGHT WITHIN REACH.
--- NOTE | 2021-07-26 06:30 | NUR ---
pt RESTING IN BED WITH EYES CLOSED. BREATHING EQUAL AND UNLABORED.
--- NOTE | 2021-07-26 06:57 | NUR ---
pt SLEEPING, AWAKENS TO VOICE, VSS. IVF INFUSING WNL. pt FINISHED ENSURE. NO REQUESTS AT THIS TIME.
--- NOTE | 2021-07-26 07:30 | NUR ---
THIS RN RECEIVED SHIFT REPORT FROM MARVA VU. PATIENT RESTING IN BED WATCHING TV. HERE DOING ROUNDS. PATIENT HAS NO NURSING CARE NEEDS AT THIS TIME. CALL LIGHT IS IN REACH.
--- NOTE | 2021-07-26 09:21 | NUR ---
PATIENT AMBUATLED IN HALLWAY INDEPENDENTLY. VITALS AND I&O'S CHARTED. FRESH WATER GIVEN. CALL LIGHT IN REACH. NO FURTHER NEEDS AT THIS TIME.
--- NOTE | 2021-07-26 09:50 | NUR ---
PATIENT DENIES THE NEED FOR PAIN MEDS OR NAUSEA MEDS AT THIS TIME. IV FLUIDS DC'D AND IV NS LOCKED. AM MEDS GIVEN. PATIENT UP IN THE BEDSIDE ARMCHAIR. LUNGS CLEAR AND BT ACTIVE. SURGICAL DRESSING REMOVED BY AND STERISTRIPS REMAIN IN PLACE. CALL LIGHT IS IN REACH AND PATIENT DENIES ANY CARE NEEDS AT THIS TIME.
--- NOTE | 2021-07-26 12:32 | NUR ---
PT ASLEEP, DID NOT DISTURB. WILL HAVE FR THERESE STOP BY FOR VISIT. WILL FOLLOW
--- NOTE | 2021-07-26 13:10 | NUR ---
THIS RN AND STUDENT NURSE SET PATIENT UP FOR A SHOWER AND WRAPPED IV. PATIENT'S IS IN THE ROOM ASSISTING PATIENT WITH HISW SHOWER. CALL LIGHT IS IN REACH.
--- NOTE | 2021-07-26 14:48 | NUR ---
THIS RN IN TO ASSESS PATIENT WHO IS SITTING IN THE BEDSIDE ARMCHAIR ASLEEP. WOKE PATIENT UP AND HE IS A+O, VS ARE STABEL, PATIENT YASMANY THE NEED FOR PAIN OR NAUSEA MED, SCHEDULED MED GIVEN, AND CALL LIGHT IN REACH. PATIENT ATE 75% OF HIS REGULAR DIET LUNCH AND TOLERATED THIS WELL. URINAL EMPTIED AND RECORDED. PATIENT GIVEN A WARM BLANKET AT HIS REQUEST AND HE PLANS TO TAKE A NAP IN HIS CHAIR. PATIENT HAS NO OTHER CARE NEEDS AT THIS TIME.
--- NOTE | 2021-07-26 16:36 | NUR ---
PATIENT HAS BEEN UP WALKING MULTIPLE LAPS AROUND THE MED/SURG FLOOR AND SAYS HE IS"DOING WELL". PATIENT HEADED BACK TO HIS ROOM TO TAKE ANOTHER NAP IN HIS CHAIR.
--- NOTE | 2021-07-26 18:33 | NUR ---
PATIENT AMBUALTED IN HALLWAY INDEPENDENTLY. PATIENT IN BED RESTING AT THIS TIME. VITALS AND I&O'S CHARTED. TEMP. GRAJEDA, RN NOTIFIED. CALL LIGHT IN REACH. NO FURTHER NEEDS AT THIS TIME.
--- NOTE | 2021-07-26 18:39 | NUR ---
THIS RN CALLED WITH A NEW FEVER PATIENT HAS OF 101.2f ORAL. INSTRUCTED THIS RN TO GIVE TYLENOL FOR THE FEVER AND MONITOR THE PATIENT AND IF HE SPIKES MORE FEVERS TO CALL HIM AND HE WILL GET CULTURES AT THAT TIME. PATIENT'S OTHER VS ARE STABLE. PATIENT HAS EATEN BETTER THE LAST COUPLE MEALS THAN HE HAS IN THE LAST 4 DAYS. PATIENT IS ACTIVE AND UP WALKING. PATIENT HAS DENIED TE NEED FOR PAIN AND NAUSEA MEDS.
--- NOTE | 2021-07-26 18:48 | NUR ---
THIS RN GAVE 1,000MG TYLENOL PO TO THE PATIENT. PATIENT STILL IS NOT HAVING PAIN. BOWEL TONES ARE ACTIVE. PATIENT SAYS HE IS FEELING "OK". PATIENT UP TO THE BATHROOM INDEPENDENTLY. PATIENT DENIES ANY OTHER CARE NEEDS AT THIS TIME.
--- NOTE | 2021-07-26 19:30 | NUR ---
REPORT RECEIVED FROM DAY SHIFT RN. PT LYING IN BED RESTING WITH EYES CLOSED. RESPIRATIONS EVEN. CALL LIGHT IN REACH. WHITE BOARD UPDATED.
--- NOTE | 2021-07-26 20:45 | NUR ---
EVENING ASSESSMENT COMPLETE. SCHEDULED MEDS ADMIN PER EMAR. PT DENIES PAIN OR NAUSESA. VS AND I&O COMPLETE. TEMP NOTED 99.6. IS PROVIDED. PT DEMONSTRATED PROPER USE. OCCASIONAL COUGH NOTED. LUNGS CLEAR. MIDLINE ABD INCISION WELL APPROXIMATED WITH STERI STRIPS INTACT. OLD DRAINAGE NOTED. ABD FIRM AND DISTENDED. BOWEL TONES ACTIVE. PT REPORTS FLATUS. DENIES BM THIS EVENING. VOID QS. PT DENIES QUESTIONS OR CONCERNS. CALL LIGHT IN REACH.
--- NOTE | 2021-07-26 21:22 | NUR ---
PT REPORTS INDEPENDENT IS USE. TEMP 98.9 ORAL AT THIS TIME. URINAL EMPTIED OF 100 ML CLEAR YELLOW URINE. NO FURTHER NEEDS.
--- NOTE | 2021-07-26 23:06 | NUR ---
PT RESTING IN BED WITH EYES CLOSED. RESPIRATIONS EVEN. CALL LIGHT IN REACH.
--- NOTE | 2021-07-27 01:34 | NUR ---
PT RESTING WITH EYES CLOSED. AWAKENS EASILY TO VOICE. SCHEDULED MEDS ADMIN PER EMAR. PT DENIES PAIN OR NAUSEA. TEMP 98.4 ORAL. DRY COUGH NOTED. UP TO BR TO VOID 275 ML CLEAR YELLOW URINE INDEPENDENTLY. NO FURTHER NEEDS.
--- NOTE | 2021-07-27 03:41 | NUR ---
CALL LIGHT ANSWERED. PT REQUESTING PRN BREATH TX. DRY COUGH NOTED, PT REPORTS CHRONIC. DENIES PAIN OR NAUSEA. NO FURTHER NEEDS.
--- NOTE | 2021-07-27 06:02 | NUR ---
PT UP TO RECLINER. VS AND I&O COMPLETE. PT AFEBRILE. PT DENIES THE NEED FOR PRN PAIN MEDICATION. DENIES NAUSA. COFFEE AND FRESH WATER PROVIDED.
--- NOTE | 2021-07-27 07:22 | NUR ---
REPORT RECEIVED FROM MARVA LOVETT. PT UP TO CHAIR. PT DENIES PAIN AND NAUSEA AND REPORTS HE IS READY TO GO HOME. PT STATES HE WILL CALL HIS AND SHE WILL BE HERE IN "HALF AN HOUR." PT DENIES NAUSEA. NO ADDITIONAL REQUESTS OR COMPLAINTS. CALL LIGHT WITHIN REACH.
[2021-07-27] MEDS ORDERED: ADVIL200 MG PO (07:30)
--- NOTE | 2021-07-27 07:38 | NUR ---
MORNING ASSESSMENT AND MEDICATION DUE. PT DRESSED AND READY TO GO HOME. PT STATES HE WANT'S TO GO HOME "NO MATTER WHAT." PT EDUCATION DONE REGARDING S/S OF INFECTION AND WHEN TO CONTACT THE DOCTOR. NOTED THAT PT HAS A LOW GRADE TEMPERATURE OF 99.2F. PT ADVISED TO CONTACT THE DOCTOR IF HE CONTINUES TO HAVE FEVERS. I.S. USE DEMONSTRATED X10 PT REACHES 750-1000ML. TEMPERATURE REASSESSED AND FOUND TO BE 98.5. PT UP IN ROOM INDEPENDANTLY. STEADY ON FEET. PT REPORTS 3/10 PAIN IN ABDOMEN AND REQUESTS MEDICATIONS "TO HELP WITH THE RIDE HOME." LUNG SOUNDS CLEAR. HEART TONES IRREGULAR, PT REPORTS THIS IS BASELINE. +2 EDEMA CONTINUES TO BLE AND HANDS. PT EPORTS "EVERYTIME I HAVE SURERY I GET SWOLLEN LIKE THIS." BOWEL TONES HEARD. ABDOMEN REMAINS MILDLY FIRM. PT REPORTS ABODOMEN IS STILL DISTENDED "QUITE A BIT." PT REPORTS PASSING GAS. MIDLINE INCISION SHOWS EDGES WELL APROXIMATED. STERI STRIPS INTACT WITH SPOTS OF OLD DRY RED DRAINAGE NOTED. NO NEW DRAINAGE NOTED. EDUCATION DONE WITH PT REGARDING WHEN TO NOTIFY MD, HOME WOUND CARE, AND S/S OF INFCTION TO WATCH FOR. PT VERBALIZES UNDERSTANDING. PT REPORTS NORMAL APPITITE. DISCHARGE INSTRUCTIONS REVIWED WITH PT. PT VERBALIZES UNDERSTANDING OF INSTUCTIONS, MEDICAITONS, FOLLOW UP, HOME WOUND CARE AND ACTIVITY RESTRICTIONS. PT ABLE TO REPEAT BACK INFORMATION. IV DC'D PER PROTOCOL, GAUZE AND COBAN APPLIED. PT EATING BREAKFAST WAITING FOR HIS TO ARRIVE. NO ADDITIONAL REQUESTS OR COMPLAINTS. CALL LIGHT WITHIN REACH.
--- NOTE | 2021-07-27 08:15 | NUR ---
PTS ARRIVED. PT FINISHED WITH BREAKFAST. PT TRANSFERS SELF TO WHEELCHAIR AND IS WHEELED FROM MED/SURG. ALL BELONGINGS WITH PT. PT DENIES ADDITIONAL QUESTIONS, REQUESTS OR CONCERNS.
== END 2021-07-27 08:15 | disposition home or self-care (01) | DRG 331 ==
LOC: ED 23:09 → MS 23:11
PROVIDERS: ADMIT Surgery; ATTEND Surgery
PROC: 0DB80ZZ Excision of Small Intestine, Open Approach (ICD-10-PCS; principal; 2021-07-18)
PROC: 0DN80ZZ Release Small Intestine, Open Approach (ICD-10-PCS; 2021-07-18)
DX: K56.51 Intestinal adhesions [bands], with partial obstruction (principal); J44.9 Chronic obstructive pulmonary disease, unspecified; Z20.822 Contact with and (suspected) exposure to COVID-19; E11.9 Type 2 diabetes mellitus without complications; Z87.891 Personal history of nicotine dependence; Z98.890 Other specified postprocedural states; Z88.2 Allergy status to sulfonamides; Z88.6 Allergy status to analgesic agent; Z79.84 Long term (current) use of oral hypoglycemic drugs; Z79.899 Other long term (current) drug therapy
CPT/HCPCS: 00840; 36415; 71045; 74018; 74176; 76705; 76942; 80048; 80053; 81001; 83690; 83735; 85025; 87070; 87075; 87205; 87502; 93005; 93010; 94640; 94760; 96361; 96366; 96372; 96374; 96375; 96376; 99285-25; A9270; C9803; G0378; J0131; J0330; J0694; J1100; J1170; J1644; J1885; J2405; J2550; J2704; J2765; J2795; J3010; J3475; J7030; J7121; U0003

== ENCOUNTER 2023-03-02 11:03 | Inpatient (IN) | payer OTHER, MEDICARE ==
[~2023-03-02] VITALS: Ht 170.2 cm; Wt 78.6 kg
[~2023-03-02 11:03] MED LIST changes: +ADVIL200 MG PO; +BREO ELLIPTA 21 EACH INH; +GABAPENTIN300 MG; +NASACORT10.8 ML NAS
[2023-03-02 11:26] LABS: BASOPHILS 0.7 % (0-2); EOSINOPHILS 0.6 % (0-6); HEMATOCRIT 44.9 % (35.0-50.0); LYMPHOCYTES 16.2 % (24-44); MCH 31.6 (27-36); MCHC 33.5 g/dl (30-36); MCV 94.3 fl (81-99); MONOCYTES 6.2 % (0-12); NEUTROPHILS 76.3 % (39-80); PLATELET COUNT 246 K/uL (140-440); RBC 4.75 M/ul (4.3-5.7); RDW 14.7 (10.5-15.0)
[2023-03-02 11:39] LABS: ALBUMIN 4.2 g/dL (3.4-5.0); ALBUMIN/GLOBULIN RATIO 1.14 (1.1-2.4); ANION GAP 15.9 (7-21); BILIRUBIN, TOTAL 0.5 ng/dL (0.2-1.0); BUN/CREATININE RATIO 25.85 (6.0-28.6); CALCIUM 10.2 mg/dL (8.5-10.1); CREATININE, SERUM 1.47 mg/dL (0.70-1.30); POTASSIUM 4.9 mmol/L (3.5-5.1); PROTEIN, TOTAL 7.9 g/dL (6.4-8.2)
--- NOTE | 2023-03-02 13:45 | NUR ---
PT ARRIVES TO ROOM VIA STRETCHER ACCOMPANIED BY DIANA Duke RN. BEDSIDE REPORT RECEIVED. PT REQUESTING TO USE URINAL. PT AMBULATES TO RESTROOM WITH STEADY GAIT. VOID NOTED. PT AMBULATES TO BED. QUICK ADMIT COMPLETE. VITALS AND I&Os COMPLETE. BED WEIGHT COMPLETE. IV FLUSHES WNL AND IS INFUSING WNL. ASSESSMENT COMPLETE. LUNG SOUNDS CLEAR. DIMINISHED IN RLL. BOWEL TONES ACTIVE. ABD TENDER WITH PALPATION. ABD FIRM AND DISTENDED. PT REPORTING PAIN 4/10 TO ABD. BILATERAL ARMS REDDENED. SWAB PROVIDED FOR PT TO SWAB MOUTH. PT REPORTING SORE THROAT. PT DENIES ANY OTHER NEEDS AT THIS TIME. CALL LIGHT IN REACH. IN ROOM.
[2023-03-02 13:54] VITALS: BP 137/66
--- NOTE | 2023-03-02 14:50 | NUR ---
UR NOTE [facility]CG INTESTINAL OBSTRUCTION (ISC) INPATIENT 03/02/23 MET CLINICAL INDICATIONS FOR ADMISSION TO INPATIENT CARE GL DAY 1
--- NOTE | 2023-03-02 15:20 | NUR ---
THIS RN TALKED TO DR. RODARTE REGARDING PTs SORE THROAT. VERBAL ORDERS RECIEVED, VERIFIED WITH READBACK.
[2023-03-02] MEDS ORDERED: MELOXICAM15 MG PO (15:31)
[2023-03-02] MEDS ORDERED: IPRATROPIUM BRO30 ML NAS (15:33)
--- NOTE | 2023-03-02 15:34 | NUR ---
IN PT REPORTING PAIN. PT REPORTING PAIN 10/10 IN ABD. PRN PAIN MEDICATION ADMINISTERED, SEE MAR. PT STATES "I FEEL LIKE I AM GOING TO THROW UP." WILL DR. RODARTE FOR PRN NAUSEA MEDICATION. PT DENIES ANY OTHER NEEDS AT THIS TIME. CALL LIGHT IN REACH.
--- NOTE | 2023-03-02 15:58 | NUR ---
IN TO ADMINISTER PRN ZOFRAN PT REPORTING NAUSEA. PT DENIES ANY OTHER NEEDS AT THIS TIME. CALL LIGHT IN REACH.
--- NOTE | 2023-03-02 16:05 | NUR ---
PATIENT ALERT AND ORIENTED IN BED. VERIFIED DEMOGRAPHICS. [place] WITH , NEHA. HAS 3 STEPS TO GET INSIDE THE HOME, ALSO HAS A RAMP. NO DME. DRIVES NORMALLY BUT CAN ASSIST WITH TRANSPORTATION. STATES NO FINANCIAL HARDSHIP, SPOUSE STILL WORKS. DENIES NEEDS AT THIS TIME. INSTRUCTED TO NOTIFY STAFF IF NEEDS ARISE.
--- NOTE | 2023-03-02 16:25 | NUR ---
IN TO START IV LR BOLUS PER ORDERS, SEE MAR. PT REPORTING PAIN 10/05 TO ABD. PRN MORPHINE ADMINISTERED, SEE MAR. PT DENIES ANY OTHER NEEDS AT THIS TIME. CALL LIGHT IN REACH.
--- NOTE | 2023-03-02 17:16 | NUR ---
MED REC COMPLETE
[2023-03-02 17:17] VITALS: BP 148/61
--- NOTE | 2023-03-02 18:00 | NUR ---
IN WITH DR. RODARTE. PRN CHLORASEPTIC SPRAY ADMINISTERED, SEE MAR. PT LAYING IN BED AND RESPONDS WHEN ADDRESSED. PT DENIES ANY OTHER NEEDS AT THIS TIME. CALL LIGHT IN REACH.
--- NOTE | 2023-03-02 18:52 | NUR ---
IN TO ROUND ON PT. PT LAYING IN BED SEMI-FOWLERS. PT RESPONDS WHEN ADDRESSED. PT DENIES ANY NEEDS AT THIS TIME. CALL LIGHT IN REACH.
--- NOTE | 2023-03-02 19:07 | NUR ---
SHIFT REPORTS RECEIVED FROM DMITRI RN, PT RESTING QUIETLY, RESP EVEN AND REG, HOB ELEVATED, NG IN PLACE, SIDE RAILS UP X 3 AND BED IN LOW POSITION.
--- NOTE | 2023-03-02 20:14 | NUR ---
RN TO ROOM, PT MOANING AND REQUESTING PAIN MED, PT STATES PAIN 8/10 IN RIGHT MID AND LOWER ABDOMEN, PT MEDICATED WITH MORPHINE 2MG IV PER ORDER, VS COMPLETED AND STABLE, ACCUCHECK COMPLETED AND 127, NO SS INSULIN NEEDED AT THIS TIME, ASSESSMENT COMPLETED, PT ASSISTED TO STANDING POSITION TO ATTEMPT TO VOID IN URINAL, PT VOIDED 400ML YELLOW URINE, IV PATENT AND CONTS WITH LR AT 125ML/HR PER LEFT UPPER ARM IV, SITE INTACT, CPOX PLACED ON PT SINCE NARCOTICS BEING ADMINISTERED. PT BACK TO TO BED AND RESTING WITH EYES CLOSED, NG TO LOW SX, DRAINING SMALL AMOUNT LIGHT GREEN FLUID.
[2023-03-02 20:25] VITALS: BP 150/70
--- NOTE | 2023-03-02 21:00 | NUR ---
PT APPEARS TO SLEEP, RESP EVEN AND REG, SATS 92%.
--- NOTE | 2023-03-02 22:40 | NUR ---
PT CONTINUES TO SLEEP, RESP EVEN AND REG, NG CHANGED TO LOW INTERMITTANT SX, IV INFUSING WELL, HOB REMAINS ELEVATED APPROX 35 DEGREES.
--- NOTE | 2023-03-02 23:27 | NUR ---
PT CONTINUES TO SLEEP, RESP EVEN AND REG.
--- NOTE | 2023-03-03 00:26 | NUR ---
PT RESTING, GRIMACING, AWAKENS EASILY, ASKED IF HE NEEDS PAIN MED, STATES THAT WOULD BE GOOD, RATES ABDOMEN PAIN 6/10, MEDICATED WITH MORPHINE 2MG IV PER ORDER, NG CONTS TO LOW INTERMITTANT SX, GENTLY FLUSHED WITH 30ML WATER, FLUSHES WELL WITHOUT RESISTANCE. PT RESTING QUIETLY WITH EYES CLOSED.
[2023-03-03 01:51] VITALS: BP 139/53
--- NOTE | 2023-03-03 01:58 | NUR ---
PT AWAKEN FOR VS, VS STABLE, PT DENIES NEED FOR PAIN MED AT THIS TIME, DENIES NEED FOR CHLOROSEPTIC THROAT SPRAY, ACCUCHECK 120, PT DENIES NEED TO VOID, PLAN TO MONITOR, IVF INFUSING WELL, NG CONTINUES TO DRAINING LIGHT GREEN FLUID, APPROX 75 ML OUT.
--- NOTE | 2023-03-03 03:10 | NUR ---
PT ASLEEP, RESP EVEN AND REG, WITHOUT DISTRESS.
[2023-03-03 05:23] LABS: BASOPHILS 0.4 % (0-2); EOSINOPHILS 0.5 % (0-6); HEMATOCRIT 41.4 % (35.0-50.0); HEMOGLOBIN 14.1 g/dL (12.0-18.0); LYMPHOCYTES 13.7 % (24-44); MCV 94.1 fl (81-99); MONOCYTES 11.5 % (0-12); NEUTROPHILS 73.9 % (39-80); PLATELET COUNT 234 K/uL (140-440); RBC 4.41 M/ul (4.3-5.7); RDW 15.1 (10.5-15.0)
[2023-03-03 05:25] VITALS: BP 137/65
--- NOTE | 2023-03-03 05:25 | NUR ---
PT AWAKEN FOR VS, VS STABLE, PT DENIES NEED FOR PAIN MED AT THIS TIME, STATES SHE IS DOING PRETTY GOOD, REQUEST CHLORSEPTIC SPRAY, RN HAVING DIFFICULTY ASSESSING PT LOCK BOX, REQUEST CHARGE NURSE TO ASSIST. NG OUT 100ML THIS SHIFT, CONTS LIGHT GREEN, ABD SLIGHTLY LESS FIRM, ACTIVE BT'S. IV PATENT AND INFUSING WELL.
[2023-03-03 05:31] LABS: ANION GAP 12.5 (7-21); BUN/CREATININE RATIO 22.95 (6.0-28.6); CALCIUM 8.9 mg/dL (8.5-10.1); CREATININE, SERUM 1.22 mg/dL (0.70-1.30); POTASSIUM 4.5 mmol/L (3.5-5.1)
--- NOTE | 2023-03-03 06:35 | NUR ---
PT STATES HE WILL TAKE PAIN MEDICATION FOR ABD PAIN 06/05, MEDICATED WITH MORPHINE 2 MG IV PER ORDER. PT RESTING WITH EYES CLOSED.
--- NOTE | 2023-03-03 06:53 | NUR ---
PRN THROAT SPRAY PROVIDED, SEE EMAR. NO ADDITIONAL NEEDS OR CONCERNS, CALL LIGHT IN REACH.
--- NOTE | 2023-03-03 07:10 | NUR ---
REPORT RECEIVED FROM JOSEFA Byrne RN. PT RESTING IN BED WITH EYES CLOSED, RR EVEN AND UNLABORED. O2 SATS AT 97% ON RA. NO NEEDS IDENTIFIED AT THIS TIME. CALL LIGHT IN REACH.
--- NOTE | 2023-03-03 09:18 | NUR ---
IN TO ADMINISTER MEDICATION, SEE MAR. PT SITTING UP IN BED AND RESPONDS WHEN ADDRESSED. ASSESSMENT COMPLETE. LUNG SOUNDS CLEAR IN RUL, DORYS AND LLL. DIMINISHED IN RLL. BOWEL TONES ACTIVE. ABD DISTENTION NOTED. ABD FIRM AND TENDER WITH PALPATION. PT STATES "IT IS NOT TENDER IT WAS YESTERDAY." PT DENIES PASSING FLATUS. PT REPORTS PAIN /10. PT STATES "I FEEL NAUSEOUS THOUGH." PRN ZOFRAN ADMINISTERED PREVIOUSLY, SEE MAR. PEDAL PULSES PALPABLE AND EQUAL BILATERALLY. PT DENIES ANY OTHER NEEDS AT THIS TIME. CALL LIGHT IN REACH.
[2023-03-03 10:23] VITALS: BP 132/56
--- NOTE | 2023-03-03 11:31 | NUR ---
IN TO ROUND ON PT. PT SITTING UP IN BED AND RESPONDS WHEN ADDRESSED. PT REPORTING NAUSEA AND PAIN 06/05. PRN MEDICATIONS ADMINISTERED, SEE MAR. PT DENIES ANY OTHER NEEDS AT THIS TIME. CALL LIGHT IN REACH. IN ROOM.
--- NOTE | 2023-03-03 12:26 | NUR ---
IN TO ROUND ON PT. PT SITTING UP IN RECLINER. PT REPORSTS NAUSEA. PT REPORTING PAIN 4/10 PT STATS "DR. RODARTE WAS JUST IN PUSHING ON IT." PRN CHLORASEPTIC SPRAY ADMINISTERED PT REPORTING SORE THROAT. NG TUBE IRRIGATED WITH 30ML OF WATER. PT DENIES ANY OTHER NEEDS AT THIS TIME. CALL LIGHT IN REACH. IN ROOM.
--- NOTE | 2023-03-03 13:51 | NUR ---
IN IV PUMP ALARMING, RESOLVED. PT SITTING UP IN BED AND RESPONDS WHEN ADDRESSED. URINAL EMPTIED. PT DENIES ANY OTHER NEEDS AT TIME. CALL LIGHT IN REACH. IN ROOM.
--- NOTE | 2023-03-03 14:03 | NUR ---
PT REPORTING NAUSEA. THIS RN CALLED DR. RODARTE ABOUT PTs NAUSEA. ORDERS RECEIVED, VERIFIED WITH READBACK.
[2023-03-03 14:06] VITALS: BP 143/63
--- NOTE | 2023-03-03 14:50 | NUR ---
IN TO ROUND ON PT. PT SITTING UP IN BED. PT RESPONDS WHEN ADDRESSED. ASSESSMENT COMPLETE. LUNG SOUNDS CLEAR IN DORYS, LLL AND RUL. DIMINISHED IN RLL. BOWEL TONES HYPOACTIVE IN LLQ. ACITIVE IN RLQ, LUQ AND RUQ. ABD DISTENTION NOTED. ABD TENDER AND FIRM WITH PALPATION. IV INFUSING WNL. PT DENIES NAUSEA AT THIS TIME. PT REPORTS PAIN 3/10 TO ABD. PT DENIES PRN PAIN MEDICATION WHEN OFFERED. PT DENIES PASSING FLATUS AT THIS TIME. PT DENIES ANY OTHER NEEDS AT THIS TIME. CALL LIGHT IN REACH.
--- NOTE | 2023-03-03 15:36 | NUR ---
IN IV PUMP ALARMING, RESOLVED. NEW BAG OF FLUIDS STARTED, SEE MAR. PT SITTING UP IN BED WITH EYES CLOSED, RR EVEN AND UNLABORED. O2 SATS OF 97% ON RA NOTED. PT AWAKENS WHEN THIS RN SCANNS BAR CODE. PT DENIES ANY NEEDS AT THIS TIME. CALL LIGHT IN REACH.
--- NOTE | 2023-03-03 16:52 | NUR ---
IN TO ROUND ON PT. PT STANDING AT SIDE OF BED. PT DENIES ANY NEEDS AT THIS TIME. PT STATES "I AM JUST TIRED OF SITTING, I NEEDED TO STAND. I AM ALSO GOING TO USE THE URINAL." PT DENEIS ANY NEEDS. CALL LIGHT IN REACH.
[2023-03-03 17:27] VITALS: BP 155/67
--- NOTE | 2023-03-03 17:30 | NUR ---
IN TO COMPLETE VITALS AND I&Os. PT SITTING UP IN BED. PT RESPONDS WHEN ADDRESSED. VITALS AND I&Os COMPLETE. PT DENIES ANY OTHER NEEDS AT THIS TIME. CALL LIGHT IN REACH.
--- NOTE | 2023-03-03 19:02 | NUR ---
SHIFT REPORT RECEIVED FROM DMITRI DURHAM, PT RESTING WITH EYES CLOSED, RESP EVEN AND REG, OXYGEN SATS 96%.
--- NOTE | 2023-03-03 19:02 | NUR ---
SHIFT REPORT RECEIVED FROM DMITRI DURHAM, PT RESTING WITH EYES CLOSED, WITHOUT DISTRESS.
--- NOTE | 2023-03-03 20:05 | NUR ---
PT CONTINUES TO SLEEP, RESP EVEN AND REG, SATS 95%.
--- NOTE | 2023-03-03 20:05 | NUR ---
PT ASLEEP, RESP EVEN AND REG, OXYGEN SAT 95%.
[2023-03-03 20:35] VITALS: BP 151/66
--- NOTE | 2023-03-03 20:35 | NUR ---
PT AWAKE AND ALERT, VS DONE AND STABLE, PT REQUESTING PAIN MED FOR RIGHT ABDOMINAL PAIN 06/05, MEDICATED WITH MORPHINE 2MG IV PER ORDER, IV SITE PATENT, LR INFUSING WELL AT 125ML/HR PER LEFT AC IV, ACCUCHECK DONE AND 130 AT THIS TIME, NG CONTINUES TO LOW INTERMITTANT SX, DRAINING LIGHT BROWN FLUID, CHLORSEPTIC SPRAY GIVEN PER REQUEST FOR SORE THROAT, HOB ELEVATED, SIDE RAILS UP X 2, PT VOIDING WELL PER URINAL, YELLOW URINE, WARM BLANKET GIVEN.
--- NOTE | 2023-03-03 22:20 | NUR ---
PT RESTING QUIETLY, SATS STABLE AT 96%.
--- NOTE | 2023-03-03 23:50 | NUR ---
PT WAKEN BRIEFLY WITH IV ALARM, PT WITHOUT REQUESTS, DENIES NEED FOR ADDITIONAL PAIN MED, NG PATENT, CONTS TO DRAIN LIGHT BROWN FLUID.
--- NOTE | 2023-03-04 01:05 | NUR ---
PT AWAKE AND ALERT, NEW BAG OF LR UP AND INFUSING WELL, PT C/O NAUSEA, REQUESTING MEDICATION, MEDICATED WITH ZOFRAN 4MG IV PER ORDER, PT VOIDED PER URINAL, PT ATTEMPTING TO REST, NG CONTINUES WITH BROWN DRAINAGE.
--- NOTE | 2023-03-04 02:35 | NUR ---
RN TO ROOM TO COMPLETE ACCUCHECK, PT C/O CONTINUED NAUSEA, MEDICATED WITH COMPAZINE 10MG IV SLOW IV PUSH, ABDOMEN REMAINS DISTENDED, ACTIVE BT'S X 4 QUADRANTS, NG GENTLY FLUSHED WITH 30ML WATER, CONTS AT LOW INTERMITTANT SX. PT RESTING WITH EYES CLOSED.
--- NOTE | 2023-03-04 04:10 | NUR ---
PT APPEARS TO SLEEP, RESP EVEN AND REG, HOB ELEVATED, NG CONTS TO LOW INTER. SX.
[2023-03-04 05:50] VITALS: BP 147/63
--- NOTE | 2023-03-04 05:50 | NUR ---
PT AWAKE AND RECENTLY VOIDED PER URINAL, VS STABLE, AFEBRILE, PT DENIES NEED FOR PAIN MEDICATION AT THIS TIME, I/O DONE, NG OUTPUT 150ML BROWNISH FLUID THIS SHIFT.
--- NOTE | 2023-03-04 07:44 | NUR ---
PT RESTING EYES CLOSED AT TIME OF SHIFT REPORT, LEFT UNDISTURBED. AWAKE NOW SITTING UPRIGHT IN BED WATCHING TV. PT DENIES PAIN OR NEEDS OF ANYTHING. PERSONAL CARE ITEMS PROVIDED, ORAL CARE ITEMS AT BEDSIDE. CALL LIGHT IN REACH.
--- NOTE | 2023-03-04 09:00 | NUR ---
PT REPORTS EDEMA IN HANDS AND FEET ARE NEW. ENCOURAGED PT TO REPORT TO MD WHEN HE IS HERE TODAY, EDUCATION PROVIDED. PT AMBULATING THE ARMENDARIZ REQUESTED STEADY ON HIS FEET. REMINDED PT OF SELF CARE ITEMS IN THE BATHROOM FOR HIM. DENIES NEEDS AT THIS TIME
[2023-03-04 09:47] VITALS: BP 164/77
--- NOTE | 2023-03-04 10:17 | NUR ---
PT RESTING IN BED EYES CLOSED, IS PRESENT IN THE ROOM. PT AGREE'S PAIN MED WAS EFFECTIVE DENIES FURTHER NEEDS
--- NOTE | 2023-03-04 11:12 | NUR ---
PT RESTING EYES CLOSED, CONTINUES IN THE ROOM. SHE IS CONCERNED THAT NG DRAINAGE IS BROWN NOW INSTEAD OF GREEN, WONDERS ABOUT SURGERY, ETC. ENCOURAGED HER TO ASK RELEVANT QUESTIONS WHEN DR RODARTE COMES IN. PT CONTINUES DOZING DENIES NEED OF WATER OR OTHER ITEMS
--- NOTE | 2023-03-04 12:35 | NUR ---
PT CONTINUES UP IN BED WATCHING TV PRESENT IN THE ROOM. CLORO SPRAY ADMINISTERED FOR C/O THROAT DISCOMFORT. NO OTHER REQUESTS AT THIS TIME
[2023-03-04 14:18] VITALS: BP 162/65
--- NOTE | 2023-03-04 14:55 | NUR ---
DR RODARTE IN TO SEE PT AND HIS . ALL QUESTIONS ANSWERED. IV FLUID RATE REDUCED IN RESPONSE TO INCREASED EDEMA. KUB ORDERED AND COMPLETED. PT GIVEN ZOFRAN FOR C/O NAUSEA RESTING NOW EYES CLOSED DENIES NEEDS
--- NOTE | 2023-03-04 17:20 | NUR ---
PT SITTING UPRIGHT IN BED EYES CLOSED. LEFT UNDISTURBED
[2023-03-04 17:42] VITALS: BP 157/69
--- NOTE | 2023-03-04 19:12 | NUR ---
SHIFT REPORT RECEIVED FROM DEMARCO RN, PT WITH HOB IN HI SF POSITION, PT DENIES NEEDS AT THIS TIME, SR UP X 3, NG IN PLACE, IV INFUSING WELL.
[2023-03-04 20:50] VITALS: BP 158/72
--- NOTE | 2023-03-04 20:50 | NUR ---
PT RESTING WITH EYES CLOSED, AWAKENS TO NAME, ALERT, DENIES NEED FOR PAIN MED, VS DONE AND STABLE, ACCUCHECK 117, NO SS REQUIRED AT THIS TIME. ASSESSMENT COMPLETED, NG DRAINING BROWN FLUID, AND ON LOW INTERMIT SX.
--- NOTE | 2023-03-04 22:00 | NUR ---
PT REPORTS SORE BUTTOM FROM SITTING IN HIGH SEMI FOWLERS POSITION, STATES HE IS UNABLE TO TURN TO SIDES, PT ASSISTED UP TO RECLINER, TRANSFERS WELL, GAIT STEADY, WAFFLE MATTRESS PLACED ON BED FOR COMFORT, PT BACK TO BED, STATES HE FEELS MORE COMFORTABLE NOW, NG RETURNED TO L.I. SX, DRAINING BROWN COLORED FLUID, IV PATENT, CPOX REMOVED AT THIS TIME, PLAN TO SPOT CHECK WITH VS AND PRN, PT DENIES NEED FOR PAIN MED AT THIS TIME, RESTING.
--- NOTE | 2023-03-04 23:35 | NUR ---
PT APPEARS TO SLEEP, RESP EVEN AND REG, HOB REMAINS ELEVATED, NG TO LOW INTERM. SX, IV INFUSING PER ORDER.
--- NOTE | 2023-03-05 00:35 | NUR ---
PT AWAKE, WARM BLANKET GIVEN PER REQUESTS, PT DENIES NEED FOR PAIN MED AT THIS TIME, IV SITE INTACT, PT DENIES PAIN AT THE SITE.
--- NOTE | 2023-03-05 01:57 | NUR ---
LEFT UPPER ARM IV LEAKING, NEW IV PLACED IN LEFT WRIST, 20 G, PT TOLERATED WELL, LR RESTARTED AT 75ML/HR, UPPER LEFT ARM IV D'KELLY INTACT, PT REQUESTING PAIN MED FOR ABD DISCOMFORT WITH MORPHINE 2MG IV, PT RESTING, WITH EYES CLOSED, WITHOUT DISTRESS.
--- NOTE | 2023-03-05 04:00 | NUR ---
PT APPEARS TO SLEEP, RESP EVEN AND REG, HOB REMAINS ELEVATED.
--- NOTE | 2023-03-05 04:06 | NUR ---
pt states that pain level is at 5. pharmacist approved toradol based on new lab results. pt is currently laying in bed trying to sleep. toradol administered. will check on pt to see if toradol helped. no other cares needed or requested at this time. call light within reach
--- NOTE | 2023-03-05 05:08 | NUR ---
PER SUPERVIOR, PT MOVED TO ROOM 112 DUE TO CENTER NEEDING ROOM. ALL PT PERSONAL BELONGINGS MOVED, NG TO LIWS; CALL LIGHT WITHIN REACH.
[2023-03-05 05:20] VITALS: BP 156/74
--- NOTE | 2023-03-05 05:20 | NUR ---
PT REMAINS AWAKE, VS DONE AND VS STABLE, NG GENTLY FLUSHED WITH 20ML WATER, BACK TO LIWS, TOTAL OUT OF NG 100ML BROWN FLUID FOR THIS SHIFT, PT REMAINS WITH HOB HIGH SF, PT REPORTS HE IS MORE COMFORTABLE WITH WAFFLE MATTRESS ON BED, PT MEDICATED ONLY ONCE TONIGHT WITH MORPHINE 2MG, DENIES NEEDING PAIN MED AT THIS TIME. IVF INFUSING WELL PER LEFT WRIST IV, SITE INTACT.
[2023-03-05 05:26] LABS: BASOPHILS 0.5 % (0-2); EOSINOPHILS 1.1 % (0-6); HEMATOCRIT 38.2 % (35.0-50.0); HEMOGLOBIN 12.9 g/dL (12.0-18.0); LYMPHOCYTES 20.3 % (24-44); MCH 31.9 (27-36); MCHC 33.7 g/dl (30-36); MCV 94.8 fl (81-99); MONOCYTES 11.7 % (0-12); NEUTROPHILS 66.4 % (39-80); PLATELET COUNT 219 K/uL (140-440); RBC 4.03 M/ul (4.3-5.7); RDW 14.7 (10.5-15.0)
[2023-03-05 05:56] LABS: ALBUMIN 2.8 g/dL (3.4-5.0); ALBUMIN/GLOBULIN RATIO 0.76 (1.1-2.4); ANION GAP 16.2 (7-21); BILIRUBIN, TOTAL 0.4 ng/dL (0.2-1.0); BUN/CREATININE RATIO 19.38 (6.0-28.6); CALCIUM 8.6 mg/dL (8.5-10.1); CREATININE, SERUM 0.98 mg/dL (0.70-1.30); POTASSIUM 4.2 mmol/L (3.5-5.1); PROTEIN, TOTAL 6.5 g/dL (6.4-8.2)
--- NOTE | 2023-03-05 07:15 | NUR ---
PT RESTING EYES CLOSED AT TIME OF SHIFT REPORT, LEFT UNDISTURBED. PT SITTING UPRIGHT CALL LIGHT IN LAP BREATHING EVEN AND UNLABORED
--- NOTE | 2023-03-05 07:40 | NUR ---
This POULTRY FARMWORKER entered pt room to obtain blood glucose test. Pt is currently sitting up in bed. BG obtained. Pt denies any additional assistance at this time. Call light within reach.
--- NOTE | 2023-03-05 08:49 | NUR ---
PT SITTING UP ON EDGE OF THE BED C/O NAUSEA. STATES HE THINKS IT'S BECAUSE THE ROOM IS TOO HOT. TEMP ADJUSTED. PT DENIES PAIN OR NEEDS OF. DR RODARTE IN TO SEE PT HE VERBALIZES UNDERSTANDING OF POC AND SMALL BOWEL FOLLOW THROUGH TO BE DONE TODAY
[2023-03-05 09:34] VITALS: BP 156/58
--- NOTE | 2023-03-05 10:21 | NUR ---
SMALL BOWEL PROCEEDURE EXPLAINED TO PT AND ALL QUESTIONS ANSWERED. PT DOWN TO XRAY FOR PROCEEDURE
--- NOTE | 2023-03-05 11:19 | NUR ---
PT CONTINUES IN PROCEEDURE. RN WENT TO XRAY TO ADMINISTER COMPAZINE PT C/O SEVERE NAUSEA.
--- NOTE | 2023-03-05 11:36 | NUR ---
PT BACK FROM SMALL BOWEL PROCEEDURE FOR NOW. STRAIGHT TO THE SHOWER WITH STAFF ASSIST. CONTINUES IN THE ROOM.
--- NOTE | 2023-03-05 11:40 | NUR ---
PER AM MEETING AND MD NOTES PATIENT AWAITING SB STUDY.
--- NOTE | 2023-03-05 11:45 | NUR ---
This RAIMANN MACHINE OPERATOR caught family member taking pt into the shower. This RAIMANN MACHINE OPERATOR covered IV with plastic covering prior to the start of shower. PT given soap, shampoo, wash cloths and towels. Pt family member stated, "We are good." when this RAIMANN MACHINE OPERATOR asked if they needed any assistance.
--- NOTE | 2023-03-05 11:48 | NUR ---
PT FROM SHOWER TO RECLINER ASSISTING WITH SOCKS. PT AGREES HE FEELS REFRESHED DENIES NEED OF ANYTHING.
--- NOTE | 2023-03-05 12:21 | NUR ---
PT CONTINUES WITHOUT C/O WAITING TO GO BACK TO XRAY
--- NOTE | 2023-03-05 12:24 | NUR ---
UR NOTE MCG INTESTINAL OBSTRUCTION (ISC) 03/05/23 VARIANCE GL DAY 2
--- NOTE | 2023-03-05 13:07 | NUR ---
PT REPORTS PASSING STOOL X2 DESCRIBED LIQUID WITH SOME SOLID. MOVES FROM CHAIR TO BED AT THIS TIME. REMAINS AT BEDSIDE
[2023-03-05 13:50] VITALS: BP 150/70
--- NOTE | 2023-03-05 15:01 | NUR ---
PT UPRIGHT IN BED RESTING EYES CLOSED CALL LIGHT ON LAP
--- NOTE | 2023-03-05 15:55 | NUR ---
PT CONTINUES RESTING EYES CLOSED, LEFT UNDISUTRBED
[2023-03-05 17:21] VITALS: BP 157/62
--- NOTE | 2023-03-05 17:54 | NUR ---
DR RODARTE IN TO SEE PT NG TUBE DC'D
--- NOTE | 2023-03-05 19:08 | NUR ---
SHIFT REPORT RECEIVED FROM DEMARCO RN, PT RESTING WITH EYES CLOSED, HOB ELEVATED.
--- NOTE | 2023-03-05 19:30 | NUR ---
PT AWAKE, DISCUSSED PROGRESS MADE TODAY, PT WONDERING IF GABEPENTIN COULD BE RESTARTED TO HELP BURNING IN HIS LEGS, PLAN TO CALL MD FOR ORDERS.
--- NOTE | 2023-03-05 19:59 | NUR ---
TC RECEIVED FROM DR RODARTE, ORDERS RECEIVED TO START GABEPENTIN 600MG BID PO, ORDERS ENTERED.
--- NOTE | 2023-03-05 21:10 | NUR ---
RN TO ROOM, VS DONE AND STABLE, IV INFUSING WELL PER LEFT WRIST IV, SITE INTACT, GABEPENTIN GIVEN PER ORDER, RT MEDICATIONS GIVEN PER ORDER, ACCUCHECK 111, NO SS NEEDED, PT DENIES NEED FOR PAIN OR NAUSEA MEDICATION AT THIS TIME, ASSESSMENT COMPLETED, WARM BLANKET AND FRESH BLANKET GIVEN, HOB HIGH SF POSITION PER PT REQUESTS, CALL LIGHT IN REACH, PT DENIES OTHER NEEDS AT THIS TIME, SIDE RAILS UP X 2.
[2023-03-05 21:12] VITALS: BP 154/66
--- NOTE | 2023-03-05 22:15 | NUR ---
PT CALLED WANTS HELP WITH CPAP, UNKNOWN TO THIS RN IF "HOME CPAP HAD BEEN CHECKED BY RT", HE REPLIED I USED IT IN SURGERY; NOTED A SHARP EDGE TO PT VOICE, WHILE POLIET, HE WAS VERY DIRECT. HE STATED I AM GETTING IRRITTATED, THIS RN STATED, " I NOTICED", HE EXPLAINED HE WAS USED TO GETTING HIS WAY. EXPLAINED THAT ALL HOME CPAPS NEED TO BE CHECKED OVER BY RT PRIOR TO USING. HE SAID WELL IF I HAD IT CLOSER, I WOULD DO IT MYSELF. HE SAID HE WOULD WAIT BUT WASN'T HAPPY.
--- NOTE | 2023-03-05 22:42 | NUR ---
RT CAME TO PT ROOM LESS THAN 5 MIN OF PT CALLING FOR THE CPAP.
--- NOTE | 2023-03-05 23:50 | NUR ---
PT APPEARS TO SLEEP, RESP EVEN AND REG, NEW BAG OF LR HUNG PER KD RN, CONTS INFUSING WELL AT 75ML/HR.
--- NOTE | 2023-03-06 02:00 | NUR ---
PT AWAKE, DROWSY BUT ALERT, UP TO STAND AT SIDE OF BED, VOIDED PER URINAL 200ML YELLOW URINE, SITTING ON SIDE OF BED, REQUESTED BROTH, GIVEN PER REQUESTS, PT DENIES PAIN AT THIS TIME.
--- NOTE | 2023-03-06 04:07 | NUR ---
PT APPEARS TO SLEEP, RESP EVEN AND REG, HOB REMAINS ELEVATED.
[2023-03-06 05:51] VITALS: BP 161/72
--- NOTE | 2023-03-06 06:00 | NUR ---
PT CALLED APPROX [id number] TO USE BATHROOM. INDEPENDENT WITH IV ASSISTANCE. NOTED SL INCONT STOOL ON BEDDING, CLEAN LINENS ON BED. ASKED PT ABOUT NEEDING SOME CLEAN UNDERCLOTHING, AT FIRST HE SAID ON ITS OK, THEN HE SAID DO YOU HAVE SOME? INCONT PANTS WELL PJ PANTS GIVEN TO PT. HE PREFERED PRIVACY, THIS RN STAYED CLOSE TO BR DOOR. BACK TO BED, FRESH ICE WATER GIVEN, VS COMPLETED.
--- NOTE | 2023-03-06 06:30 | NUR ---
PT SITTING ON SIDE OF BED, HOT TEA GIVEN PER REQUEST FOR COUGH, NEW GOWN GIVEN PT ANXIOUS TO GET HOME SOON, DENIES NEED FOR PAIN MED.
--- NOTE | 2023-03-06 09:00 | NUR ---
Spoke with Yoseph. He believes he may be discharged today. He states he is having BMs. He denies any needs for dc. They live in [place]. His will transport him home if he dcs today.
[2023-03-06 09:24] VITALS: BP 149/60
--- NOTE | 2023-03-06 10:22 | NUR ---
ROUNDS. PT AND EXHIBITED [employer]; SOME DISAGREEMENT REGARDING SPIRITUAL PRACTICES. MEDIATED CONFLICT; PROVIDED HOSPITALITY; PROVIDED SILENT PRAYER; OFFERED REFERRAL TO [facility]. PT DECLINED VISIT REFERRAL.
--- NOTE | 2023-03-06 10:49 | NUR ---
UBALDO from Dr. Douglas to saline lock IV.
--- NOTE | 2023-03-06 10:54 | NUR ---
Patient sitting up in chair, no acute distress. Patient denies abdominal pain/nausea at this time. Patient has active bowel tones x4 quadrants. Diet advanced per provider order. Patient has notable swelling in hands and feet. Fluids recently stopped per provider order. Patient is looking forward to potential discharge later this afternoon. remains at bedside.
--- NOTE | 2023-03-06 11:54 | NUR ---
PT approached this [employer] and said the pt choked on a piece of his chicken from his lunch. The stated this issue has happened before and he needed more gravy to help him eat the rest of his lunch. Kitchen called and asked to bring this pt a cup of gravy for his lunch. Nurse notified of the choking episode. Call light within reach.
[2023-03-06 14:03] VITALS: BP 140/59
--- NOTE | 2023-03-06 15:00 | NUR ---
PT AMBULATING IN ROOM, DENIES NAUSEA OR ABD PAIN. DENIES NEEDS AT THIS TIME. CALL LIGHT IN REACH AND AT BEDSIDE. CALL LIGHT IN REACH.
--- NOTE | 2023-03-06 16:01 | NUR ---
Notified by Dr. Douglas pt has been discharged. No needs.
--- NOTE | 2023-03-06 16:25 | NUR ---
DISCUSSED DISCHARGE INSTRUCTIONS WITH PT AND SPOUSE, BOTH VERBALIZE UNDERSTANDING. IV REMOVED, TIP INTACT, GAUZE AND COBAN DRESSING APPLIED TO SITE. PT TOLERATED WELL. VSS. PT LEAVES UNIT IN WHEELCHAIR ESCORTED BY GA ROBERTS TO PRIVATE CAR DRIVED BY SPOUSE.
--- NOTE | 2023-03-06 18:48 | HP ---
[facility] [address], [place] [address] Signed ADMISSION DATE: 03/02/2023 REASON FOR ADMISSION: Recurrent bowel obstruction. HISTORY OF PRESENT ILLNESS: This 87-year-old white man is known to me from the past. He has a history of abdominal surgery for bowel obstruction and has distant history of hiatal hernia repair in [facility] for which he is unable to vomit generally speaking. The patient this morning had severe generalized abdominal pain with dry heaves and nausea. He presented to the emergency room was evaluated by Dr. Wright. A CT scan was performed of the abdomen, which showed findings consistent with small-bowel obstruction with a transition point in the right lower abdomen. Additionally fundoplication changes were noted. There is an enteroenterostomy in the right lower abdomen and a fair amount of material within mildly dilated loops of bowel proximal to the anastomosis. Distal decompression was noted at the anastomosis itself. He had clinical evidence of bladder trabeculation notable as a surrogate for bladder outlet obstructive symptoms. CURRENT MEDICATIONS: Include Tylenol, albuterol, cetirizine, fluticasone, gabapentin, ibuprofen, losartan, meloxicam, metformin, montelukast and simvastatin. ALLERGIES: He has allergy mostly to sulfa medications as well as oxycodone. SOCIAL HISTORY: He is , lives in [place]. His is at home, tending to various animals right now. REVIEW OF SYSTEMS: He does have a central abdominal pain, which is persistent and rather unremitting despite nasogastric decompression. He has no shortness of breath. PHYSICAL EXAMINATION: GENERAL: This is an elderly white man, who is alert and oriented, not systemically toxic, but quite obviously uncomfortable. VITAL SIGNS: Temperature is 97.3, pulse 60, blood pressure 137/66, O2 saturation 100% on room air. HEENT: Trachea is midline. Mucous membranes are severely dry. Nasogastric tube is in place. Minimal output is noted. ABDOMEN: He has abdominal distention and marked tenderness in the mid abdomen. Midline Electronically Signed By: MATI RODARTE MD 03/06/23 1848 PATIENT NAME: AMY NOE HISTORY AND PHYSICAL DATE OF : 37 REPORT #: [id number] PHYSICIAN: MATI RODARTE MD PCP: JULIETTE GALLEGOS MD REPORT IS CONFIDENTIAL AND NOT TO BE RELEASED WITHOUT AUTHORIZATION [facility] [address], [place] [address] Signed incision is noted as well. EXTREMITIES: Show no clubbing, cyanosis, or edema. LABORATORY STUDIES: Show a white count of 11.7, hematocrit 44.9, platelets of 246,000. Chem profile shows normal electrolytes. Creatinine elevated at 1.47, glucose 156, calcium 10.2. Liver enzymes are normal. Lipase 50. ASSESSMENT: The patient has acute bowel obstruction. I have reviewed his CT scan, which shows no sign of ascites. Liver and spleen appear normal. Gallbladder appears non inflamed. Bowel loops that are dilated are quite obvious extending down to the right lower quadrant where the staple line is noted, likely designating the area of prior segmental bowel resection. There is no sign of abdominal wall hernia accounting for the problem. Records available to me confirms admission in the hospital from November 20 to November 22, 2017 for a bowel obstruction which resolved without operative intervention at that time. This included a nasogastric tube decompression with prompt improvement. At that time, he was not focally tender. He additionally had a bowel obstruction on July 15, 2021. He resolved without need of operative intervention at that time, though he had had been considered likely would need prompt intervention, given his previous findings. He ultimately did undergo lysis of adhesions and small bowel resection. No doubt concordant to CT scan findings at this time. Review of operative note from July 17, 2021, two years ago confirmed exploratory laparotomy with extensive lysis of adhesions, which was prolonged, complicated, and difficult as well as segmental small bowel resection with [id number] enteroenterostomy. Considerable intra-abdominal adhesions were noted at that time. All adhesions were fully freed up. The patient has bowel obstruction for which a fair amount of tenderness is noted. This is in distinction to his previous episodes. Close review of his operative report from 2021 confirmed area of maximal bowel dilation and obstruction was in the left lower quadrant. A mass of loops of small bowel in the left lower quadrant were noted and deserosalized areas were repaired. The most proximal small bowel starting at the ligament of Treitz was entirely normal in the area, decompression beyond the obstruction was mostly in the left lower quadrant. The segment of bowel was resected related to deserosalization with questionable viability and [id number] functional end-to-end anastomosis was performed. There was foreshortening of the omentum. Under the circumstances of his current situation with far more tenderness than usual, a more urgent intervention may be required. I will re-examine him in the next hour or two and assess if he is improved with hydration and nasogastric tube decompression. If not, he may have requirement for prompt exploration to remedy the bowel obstruction. Electronically Signed By: MATI RODARTE MD 03/06/23 1848 PATIENT NAME: AMY NOE HISTORY AND PHYSICAL DATE OF : 37 REPORT #: [id number] PHYSICIAN: MATI RODARTE MD PCP: JULIETTE GALLEGOS MD REPORT IS CONFIDENTIAL AND NOT TO BE RELEASED WITHOUT AUTHORIZATION [address] [place] [address] Signed MD DANELLE Damian/KARMENL /[id number] cc: DR. Julián Wright Copies: ~ Electronically Signed By: MATI RODARTE MD 03/06/23 1848 PATIENT NAME: AMY NOE HISTORY AND PHYSICAL DATE OF : 37 REPORT #: [id number] PHYSICIAN: MATI RODARTE MD PCP: JULIETTE GALLEGOS MD REPORT IS CONFIDENTIAL AND NOT TO BE RELEASED WITHOUT AUTHORIZATION
--- NOTE | 2023-03-06 18:49 | DS ---
[facility] [address], [place] [address] Signed ADMISSION DATE: 03/02/2023 DISCHARGE DATE: 03/06/2023 REASON FOR ADMISSION: Small bowel obstruction. HISTORY: An 87-year-old white man known to me from the past with history of abdominal surgery for bowel obstruction and distant history of hiatal hernia repair in [place], [place]. The patient presented emergency room where he has had protracted nausea and vomiting. A CT scan was performed of the abdomen under the direction of Dr. Wright, which showed findings consistent with small bowel obstruction with a transition point in the right lower abdomen. The patient is known to me having undergone laparotomy in 2021 for small-bowel obstruction requiring segmental small bowel resection and [id number] functional end-to-end enteroenterostomy. He is admitted for further evaluation and care. PERTINENT PHYSICAL EXAMINATION: GENERAL: Showed an elderly white man who did not look systemically toxic. NECK: Trachea was midline. CHEST: Clear. HEART: Regular without murmur. ABDOMEN: Somewhat distended, but rather tender in the right mid abdomen. HOSPITAL COURSE: A nasogastric tube was placed and fluid resuscitation undertaken. Serial examination and KUB x-rays showed slight improvement, but still had some tenderness. He underwent a small-bowel follow-through on March 05, 2023, which showed contrast passage all the way through the bowel into the rectum. A nasogastric tube was removed. He was given a liquid diet and ultimately a solid diet for lunch. He tolerated this well and on that basis, he feels ready to go home. His abdomen is soft and nondistended at this time. He will resume his usual medications, which will include: 1. Gabapentin 300 mg two tablets p.o. b.i.d. 2. Losartan 50 mg p.o. at bedtime. 3. Albuterol sulfate nebulizer two puffs q.6 as needed. 4. Simvastatin 20 mg p.o. at bedtime. 5. Fluticasone (Breo Ellipta) two inhales daily. 6. Cetirizine (Zyrtec) 10 mg p.o. b.i.d. as needed. Electronically Signed By: MATI RODARTE MD 03/06/23 1849 PATIENT NAME: AMY NOE DISCHARGE SUMMARY DATE OF : 37 REPORT #: [id number] PHYSICIAN: MATI RODARTE MD PCP: JULIETTE GALLEGO MD REPORT IS CONFIDENTIAL AND NOT TO BE RELEASED WITHOUT AUTHORIZATION [facility] [address], [place] [address] Signed 7. Tylenol p.o. q.4 hours as needed for pain. 8. Montelukast 10 mg p.o. at bedtime. 9. Ibuprofen 200 mg p.o. q.6 as needed for pain. 10. Meloxicam 15 mg p.o. daily as needed. 11. Ipratropium bromide two sprays nasal three times a day. 12. He has discontinued his metformin at this time. FOLLOWUP PLAN: To return to the ongoing care of Dr. Gallego, his primary provider. He has abdominal pain complaints. He will return to the ER or let me know which time further evaluation may be undertaken. DISCHARGE DIAGNOSES: 1. Small bowel obstruction, resolved by nonoperative methods. 2. Distant history of small-bowel obstruction requiring laparotomy, lysis of adhesions and segmental bowel resection 2020. 3. Distant history of hiatal hernia [place]. [place]. 4. 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 5. Dyslipidemia. 6. Hypertension. 7. Arthritis. Mati Rodarte MD /MODL /[id number] cc: Dr. Kyle Gallego MD Copies: JULIETTE GALLEGO MD ~ Electronically Signed By: MATI RODARTE MD 03/06/23 1849 PATIENT NAME: AMY NOE DISCHARGE SUMMARY DATE OF : 37 REPORT #: [id number] PHYSICIAN: MATI RODARTE MD PCP: JULIETTE GALLEGO MD REPORT IS CONFIDENTIAL AND NOT TO BE RELEASED WITHOUT AUTHORIZATION
[2023-03-07] MEDS ORDERED: METFORMIN HCL500 MG PO (12:31)
== END 2023-03-06 16:25 | disposition home or self-care (01) | DRG 390 ==
LOC: ED 11:03 → MS 13:16
PROVIDERS: Emergency Medicine; ADMIT Surgery; ATTEND Surgery
PROC: 0D9670Z Drainage of Stomach with Drainage Device, Via Natural or Artificial Opening (ICD-10-PCS; principal; 2023-03-02)
DX: K56.609 Unspecified intestinal obstruction, unspecified as to partial versus complete obstruction (principal); K44.9 Diaphragmatic hernia without obstruction or gangrene; J45.909 Unspecified asthma, uncomplicated; J44.9 Chronic obstructive pulmonary disease, unspecified; E78.5 Hyperlipidemia, unspecified; I10 Essential (primary) hypertension; M19.90 Unspecified osteoarthritis, unspecified site; E11.9 Type 2 diabetes mellitus without complications; Z87.19 Personal history of other diseases of the digestive system; Z87.891 Personal history of nicotine dependence; Z98.890 Other specified postprocedural states; Z88.2 Allergy status to sulfonamides; Z88.5 Allergy status to narcotic agent; Z79.899 Other long term (current) drug therapy; Z79.84 Long term (current) use of oral hypoglycemic drugs; Z79.51 Long term (current) use of inhaled steroids
CPT/HCPCS: 36415; 71045; 74018; 74177; 74250; 80048; 80053; 83690; 85025; 94640; 94762; 96375; 96376; 99285-25; A9270; J0780; J1170; J1644; J1815; J2270; J2405; J7121; Q9967